=== PATIENT | male | born 1930 | race Caucasian/White ===

== ENCOUNTER → 2017-03-26 | Outpatient (CLI) | payer MEDICARE, BC ==
[~2017-03-26] MED LIST: AMLO2.5T33 PO; CALC-141 PO; D3; DONE5TAB7 PO; ESOM40CA24 PO; FINA5TAB40 PO; FISH OIL; GLUC1CAP45 PO; LEVO100T85 PO; LUTE20CA3 PO; VITAMIN E; [UNRECOGNIZED DRUG - OTHER]
[2017-03-26 08:28] LABS: ALBUMIN 3.7 G/DL (3.5-5.0); ALBUMIN/GLOBULIN RATIO 1.5 RATIO (1.1-2.2); ALKALINE PHOSPHATASE 52 U/L (38-126); ALT (SGPT) 34 U/L (21-72); AST (SGOT) 21 U/L (17-59); TOTAL PROTEIN 6.1 G/DL (6.3-8.2)
[2017-03-27 03:19] LABS: LDL CHOLESTEROL,CALCULATED 51.6 (66-159); RISK FACTOR 2.7 RATIO (0-5.0); VLDL CHOLESTEROL 14.4 MG/DL (0-28)
== END ==
LOC: LABNH.AP 01:17
PROVIDERS: ATTEND Family Medicine
DX: E78.5 Hyperlipidemia, unspecified (principal)
CPT/HCPCS: 36415; 80061; 80076; P9604

== ENCOUNTER 2017-08-10 23:33 | Inpatient (IN) ==
--- NOTE | 2017-08-10 23:56 | Emergency Department Report ---
Lower Extremity Injury HPI - General Chief Complaint: Fall Stated Complaint: Fall Time Seen by Provider: 08/10/17 23:37 Source: patient, EMS Mode of arrival: EMS Limitations: no limitations, altered mental status (memory impairment secondary to dementia) - History of Present Illness HPI Narrative: Patient had a fall at his alf room, where he lives with his . Patient fell onto his right side, and is now having pain in the proximal femur/ hip region patient has shortening with mild external rotation, and limited range of motion at the hip. While still, patient has no pain, and refused pain medication in route - Related Data Home Medications Medication Instructions Recorded Confirmed Finasteride 5 mg PO DAILY #0 01/04/12 Donepezil HCl [Aricept] 5 mg PO HS #0 tab 12/20/13 Zocor (simvastatin) 20 mg tablet 20 mg PO QAM 04/02/17 loperamide 2 mg tablet 2 mg PO DAILY PRN tab 04/02/17 oxybutynin chloride 5 mg tablet 5 mg PO TID tab 04/02/17 Levothyroxine Sodium 100 mcg PO DAILY #0 04/22/17 Norvasc (amlodipine) 5 mg tablet 5 mg PO DAILY tab 04/22/17 Probiotic Formula 1 cap PO DAILY 04/22/17 aspirin 325 mg tablet 325 mg PO DAILY tab 04/22/17 lutein 6 mg capsule 6 mg PO DAILY cap 04/22/17 Mapap Extra Strength 500 mg tablet 1,000 mg PO BID tab 08/07/17 Zoloft (sertraline) 25 mg tablet 25 mg PO HS tab 08/07/17 lisinopril 10 mg tablet 10 mg PO DAILY tab 08/07/17 Cyanocobalamin (B-12) [Vit. B-12] 1,000 mcg IM 1 MONTH 08/11/17 08/11/17 Fludrocortisone [Florinef] 0.1 mg PO DAILY 08/11/17 08/11/17 L. 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 CVA 2013. Endarterectomy 2009. Cataract extraction 2004. Biopsy 2013. Arthroscopic meniscectomy 2002. Colonoscopy 2002. Dissection 2002. TURP 1998. Hernia repair 1995. Amputation finger 1959. Appendectomy 1951 Family History: Family History (Last Reviewed 08/07/17 @ 15:25 by SHIRLENE Galvin) Mother CVA (cerebral vascular accident) Father Pulmonary embolism - Social History Smoking status: Never smoker Physical Exam - Limitations Limitations: no limitations - General General appearance: alert - Normal Exams: Head:: Normocephalic without trauma Eyes:: Pupils are PERRLA w/ EOMI, No scleral icterus, irritation, or foreign bodies noted ENMT:: No facial trauma, nasal exudates, pharyngeal erythema, or exudates are noted Neck:: Full range of motion, without adenopathy, JVD, bruits or thyromegaly Chest/Respirations:: Clear all conn, with good airflow, and symmetry bilaterally Cardiovascular:: Regular rate and rhythm, without murmur or gallop, Pulses 2+ all extremities, capillary refill, <2 seconds all extremities Abdomen:: Bowel sounds positive, soft, non-tender, non-distended, no hepatosplenomegaly, masses or bruits noted Lymphatic:: No lymphadenopathy, or lymphedema noted Integumentary:: No rashes, hives, or bruising noted, hair and nails, without abnormality Neurological:: Patient is alert, and oriented, cranial nerves, motor/sensory/ cerebellar, exams w/o gross deficits, to observation Psychiatric:: Patient exhibits, appropriate attention, emotion and affect - Extremities Exam Extremities exam: Present: tenderness, normal capillary refill, joint swelling, other (patient has significant tenderness with mild swelling at the right lateral hip and proximal femur laterally. Decreased range of motion, mild shortening and minimal external rotation.). Absent: full ROM, pedal edema, calf tenderness Course Vital Signs Temperature 97.7 F 08/10/17 23:33 Pulse Rate 56 L 08/10/17 23:33 Respiratory Rate 18 08/10/17 23:33 Blood Pressure 181/94 H 08/10/17 23:33 Pulse Oximetry 94 08/10/17 23:33 Temperature 97.7 F 08/10/17 23:33 Pulse Rate 56 L 08/10/17 23:33 Respiratory Rate 18 08/10/17 23:33 Blood Pressure 181/94 H 08/10/17 23:33 Pulse Oximetry 94 08/10/17 23:33 Extremity Injury, Lower - MDM Narrative Medical decision making narrative: Patient refuses pain medication in the ER X-rays hip/femur - comminuted intertrochanteric fracture on the right Case discussed with Dr. Alejandro Briceno, we'll admit inpatient, for consultation with orthopedist, Dr. Chávez, first thing in the morning with planned surgery tomorrow for repair of intertrochanteric hip fracture on the right Initial lab, chest x-ray, EKG done in the ER Patient is FULL CODE Disposition Clinical Impression: Intertrochanteric fracture of right hip Qualifiers: Encounter type: initial encounter Fracture type: closed Fracture alignment: nondisplaced Qualified Code(s): S72.144A - Nondisplaced intertrochanteric fracture of right femur, initial encounter for closed fracture Disposition: 02 To [facility] [place] Acute Care Condition: Stable Prescriptions: No Action Finasteride 5 mg PO DAILY #0 Donepezil HCl [Aricept] 5 mg PO HS #0 tab loperamide 2 mg tablet 2 mg PO DAILY PRN tab oxybutynin chloride 5 mg tablet 5 mg PO TID tab Levothyroxine Sodium 100 mcg PO DAILY #0 lutein 6 mg capsule 6 mg PO DAILY cap aspirin 325 mg tablet 325 mg PO DAILY tab Norvasc (amlodipine) 5 mg tablet 5 mg PO DAILY tab Zoloft (sertraline) 25 mg tablet 25 mg PO HS tab Zocor (simvastatin) 20 mg tablet 20 mg PO QAM Vitamin B12 1,000 mcg PO DAILY Probiotic Formula 1 cap PO DAILY Namenda (memantine) 10 mg tablet 10 mg PO BID #60 tab fludrocortisone 0.1 mg tablet 0.1 mg PO DAILY #30 tab lisinopril 10 mg tablet 10 mg PO DAILY tab Mapap Extra Strength 500 mg tablet 1,000 mg PO BID tab - Seen By: physician
--- OUTSIDE RECORDS SUMMARY | 2017-08-11 00:01 | External Medical Summary | Referral Summary ---
:1930 Author Organization [facility] Address [address] [place] [address] [place] Sau[place] [address] Care Team Providers Name Role Phone Ryan Ibarra Primary Care Physician Encounter VC Date(s): 04/11/15 - 04/11/15 [facility] [address] [place] [address] [place] [phone] [place] Discharge Diagnosis: Overactive bladder Discharge Disposition: 01-Home or Self Care Attending Physician: Leopoldo Murphy JR, MD Admitting Physician: Leopoldo Murphy JR, MD Referring Physician: Ryan Ibarra MD Vital Signs Most recent to oldest [Reference Range]: 1 Peripheral Pulse Rate [60-100 bpm] 70 bpm (04/11/15 9:05 AM) Blood Pressure [90-140/60-90 mmHg] 144/78 mmHg *HI* (04/11/15 9:05 AM) Problem List Condition Effective Dates Status Health Status Informant Acute cerebrovascular Active accident(Confirmed) At risk of pressure sore(Confirmed) Active Benign colon polyps(Confirmed) 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(Confirmed) Active right middle territory(Confirmed) Active Cerebral infarction(Confirmed) Active Disease of white blood Active cells(Confirmed) Diverticulosis(Confirmed) Active cardiac(Confirmed) Active Enlargement of lymph nodes(Confirmed) Active Hematuria(Confirmed) Active High cholesterol(Confirmed) Active Hyperplasia of prostate(Confirmed) Active Hypertension(Confirmed) Active Hypothyroidism(Confirmed) Active Knowledge deficit(Confirmed)1 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 1Problem added automatically by system based on initiation of Knowledge Deficit Plan of Care Allergies, Adverse Reactions, Alerts No Known Medication Allergies Medications acetaminophen 325 mg oral tablet 650 mg 2 tabs, Oral, q4hr, Other (See Comment), 0 Refill(s) Start Date: 08/17/15 Status: OrderedamLODIPine 5 mg, Oral, Daily, 0 Refill(s) Start Date: 08/17/15 Status: OrderedAricept 5 mg, Oral, Bedtime (once a day), 0 Refill(s) Start Date: 08/17/15 Status: Orderedaspirin 325 mg, 0 Refill(s) Start Date: 06/27/14 Status: OrderedCo-Q10 100 mg oral capsule 100 mg 1 caps, Oral, Daily, # 90 caps, 0 Refill(s) Start Date: 09/15/15 Status: Orderedfinasteride 5 mg, Oral, Bedtime (once a day), 0 Refill(s) Start Date: 08/17/15 Status: Orderedgarlic oral tablet 0 Refill(s) Start Date: 06/27/14 Status: Orderedlutein 6 mg oral capsule 6 mg 1 caps, Oral, Daily, # 30 caps, 0 Refill(s) Start Date: 09/15/15 Status: OrderedNexIUM 20 mg oral delayed release capsule 1 caps, Oral, Daily, # 30 caps, 0 Refill(s) Start Date: 06/27/14 Status: Orderedoxybutynin 5 mg, Oral, BID, 0 Refill(s) Start Date: 08/17/15 Status: OrderedProbiotic Formula caps, Oral, Daily, 0 Refill(s) Start Date: 06/27/14 Status: Orderedsimvastatin 20 mg oral tablet 20 mg 1 tabs, Oral, Bedtime (once a day), # 30 tabs, 0 Refill(s) Start Date: 09/15/15 Status: OrderedSynthroid 100 mcg, Oral, Daily, 0 Refill(s) Start Date: 08/17/15 Status: Ordered Results No data available for this section Immunizations Vaccine Date Refusal Reason influenza virus vaccine, inactivated 08/24/15 influenza virus vaccine, inactivated 08/14/15 influenza virus vaccine, inactivated 08/03/14 influenza virus vaccine, live 08/29/13 influenza virus vaccine, live 08/20/12 pneumococcal 13-valent conjugate vaccine 08/24/15 pneumococcal 13-valent conjugate vaccine 08/14/15 pneumococcal 23-polyvalent vaccine 09/12/03 Procedures Procedure Date Related Diagnosis Body Site Hospitalization for TIA 2014 Hospitalization for CVA - Cerebrovascular accident 2014 right carotid 2010 Cataract extraction 2005 right cervical node-benign 2004 Arthroscopic meniscectomies 2002 Colonoscopy 2002 right parotidectomy neck 2003 TURP - Transurethral resection of prostate 1998 left inguinal 1996 left index 1960 Appendectomy 195 Social History Social History Type Response Smoking Status Former smoker; Started at age: 22; Stopped at age: 24 Assessment and Plan Extracted from: Title: Ambulatory Patient Education Author: Leopoldo Murphy JR, MD Date: 04/11/15 Follow Up With: Where: When: Ryan Stacey [address] [place] [address] Drive; [place] [address] Business (1) Within 3 to 5 days Comments: Follow Up With: Where: When: Leopoldo Murphy [address]; [place] [address] Business (1) In 6 weeks 05/23/2015 Comments: Extracted from: Title: Office Visit Note Author: Leopoldo Murphy JR, MD Date: 04/11/15 Assessment/Plan Overactive bladder Takes Oxybutynin 5 mg twice a day for 2 weeks, and if there is no improvement of the problem take this medication 3 times since it to twice a day. For his BPH with lower urinary tract symptoms, continue taking the finasteride. Would like to see him again in 6 weeks. 15 minute face to face visit with 2/3 of the visit devoted to counseling. Ordered: Office Visit Level 3 Est 36857 Orders: oxybutynin, 5 mg 1 tabs, Oral, BID, # 90 tabs, 0 Refill(s), Pharmacy : [facility] #[id number], 1 tabs Oral BID
--- OUTSIDE RECORDS SUMMARY | 2017-08-11 00:01 | External Medical Summary | Referral Summary ---
:1930 Author Organization [facility] Address [address] [place] [address] Care Team Providers Name Role Phone Ryan Ibarra Primary Care Physician Encounter VC Date(s): 08/16/15 - 08/17/15 [facility] [address] [place] [address] [place] Discharge Diagnosis: Lower extremity weakness Discharge Disposition: 01-Home or Self Care Attending Physician: Sergei Price DO Admitting Physician: Tatyana Asif DO Vital Signs Most recent to oldest [Reference Range]: 1 Temperature Oral [35.8-37.3 degC] 36.5 degC (08/17/15 1:00 PM) Peripheral Pulse Rate [60-100 bpm] 52 bpm *LOW* (08/17/15 1:00 PM) Heart Rate Monitored [60-100 bpm] 53 bpm *LOW* (08/16/15 9:35 PM) Respiratory Rate [14-20 br/min] 18 br/min (08/17/15 1:00 PM) Blood Pressure [90-140/60-90 mmHg] 149/93 mmHg *HI* (08/17/15 1:00 PM) Mean Arterial Pressure, Cuff 125 mmHg (08/16/15 9:35 PM) SpO2 93 % (08/17/15 1:00 PM) Problem List Condition Effective Dates Status Health Status Informant Acute cerebrovascular Active accident(Confirmed) At risk of pressure sore(Confirmed) Active Benign colon polyps(Confirmed) 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) [...] 0 Refill(s) Start Date: 06/27/14 Status: OrderedCo-Q10 Oral, 0 Refill(s) Start Date: 06/27/14 Status: Orderedfinasteride 5 mg, Oral, Bedtime (once a day), 0 Refill(s) Start Date: 08/17/15 Status: Orderedgarlic oral tablet 0 Refill(s) Start Date: 06/27/14 Status: Orderedlutein Oral, Daily, 0 Refill(s) Start Date: 06/27/14 Status: OrderedNexIUM 20 mg oral delayed release [...] # 30 tabs, 0 Refill(s) Start Date: 08/17/15 Status: OrderedSynthroid 100 mcg, Oral, Daily, 0 Refill(s) Start Date: 08/17/15 Status: Ordered Results Hematology Most recent to oldest [Reference Range]: 1 WBC [4.8-10.8 10*3/uL] 6.2 10*3/uL (08/16/15 8:00 PM) RBC [4.60-6.20] 4.49 *LOW* (08/16/15 8:00 PM) Hgb [14.0-18.0 gm/dL] 14.5 gm/dL (08/16/15 8:00 PM) Hct [42.0-52.0 %] 42.4 % (08/16/15 8:00 PM) MCV [82.0-99.0 fL] 94.4 fL (08/16/15 8:00 PM) MCH [27.0-32.0 pg] 32.3 pg *HI* (08/16/15 8:00 PM) MCHC [32.0-36.0 gm/dL] 34.2 gm/dL (08/16/15 8:00 PM) RDW [11.5-14.5 %] 12.7 % (08/16/15 8:00 PM) Platelet [150-400 10*3/uL] 185 10*3/uL (08/16/15 8:00 PM) MPV [9.4-12.3 fL] 10.2 fL (08/16/15 8:00 PM) Immature Granulocytes [0.0-1.0 %] 0.2 % (08/16/15 8:00 PM) Neutrophils [51-75 %] 52 % (08/16/15 8:00 PM) Lymphocytes [20-46 %] 31 % (08/16/15 8:00 PM) Monocytes [4-11 %] 13 % *HI* (08/16/15 8:00 PM) Eosinophils [0-4 %] 4 % (08/16/15 8:00 PM) Basophils [0-2 %] 0 % (08/16/15 8:00 PM) Neutro Absolute [1.90-7.00 10*3] 3.23 10*3 (08/16/15 8:00 PM) Lymph Absolute [0.80-3.30 10*3] 1.91 10*3 (08/16/15 8:00 PM) [place] Absolute [0.30-1.00 10*3] 0.81 10*3 (08/16/15 8:00 PM) Eos Absolute [0.00-0.50 10*3] 0.22 10*3 (08/16/15 8:00 PM) Baso Absolute [0.00-0.20 10*3] 0.02 10*3 (08/16/15 8:00 PM) Nucleated RBC Automated [0 /100 WBC] 0.0 /100 WBC (08/16/15 8:00 PM) Coagulation Most recent to oldest [Reference Range]: 1 INR [0.9-1.2] 1.1 (08/16/15 8:00 PM) PTT [25.0-35.0 seconds] 31.3 seconds (08/16/15 8:00 PM) Chemistry Most recent to oldest [Reference Range]: 1 Sodium Lvl [136-144 mEq/L] 138 mEq/L (08/16/15 8:00 PM) Potassium Lvl [3.6-5.1 mEq/L] 3.8 mEq/L (08/16/15 8:00 PM) Chloride [99-109 mEq/L] 109 mEq/L (08/16/15 8:00 PM) CO2 [22-32 mEq/L] 24 mEq/L (08/16/15 8:00 PM) AGAP [3-20] 5 (08/16/15 8:00 PM) BUN [4-20 mg/dL] 22 mg/dL *HI* (08/16/15 8:00 PM) Glucose Lvl [70-100 mg/dL] 117 mg/dL *HI* (08/16/15 8:00 PM) Creatinine Lvl [0.64-1.27 mg/dL] 0.93 mg/dL (08/16/15 8:00 PM) eGFR [>60] >60 1 (08/16/15 8:00 PM) Calcium Lvl [8.6-10.0 mg/dL] 9.0 mg/dL (08/16/15 8:00 PM) Troponin [<0.06 ng/mL] <0.05 ng/mL (08/16/15 8:00 PM) Sodium Venous [136-144 mEq/L] 141 mEq/L (08/16/15 8:01 PM) Potassium Venous [3.6-5.1 mEq/L] 3.9 mEq/L 2 (08/16/15 8:01 PM) Calcium Ionized Venous [1.19-1.41 mmol/L] 1.19 mmol/L (08/16/15 8:01 PM) Total CO2 Venous [25-29 mEq/L] 24 mEq/L *LOW* (08/16/15 8: PM) HGB Venous NPT [14.0-16.0 gm/dL] 14.6 gm/dL (08/16/15 8: PM) HCT Venous [42.0-52.0 %] 43.0 % (08/16/15 8:01 PM) Glucose Venous [70-100 mg/dL] 116 mg/dL *HI* (08/16/15 8: PM) BUN Venous [4-20] 26 *HI* (08/16/15: PM) Creatinine Venous [0.7-1.2 mg/dL] 1.0 mg/dL (08/16/15 8: PM) Venous CL [99-109 mEq/L] 107 mEq/L (08/16/15: PM) Anion Gap, Ata [3-20] 10 (08/16/15 8:01 PM) Chol [0-200 mg/dL] 178 mg/dL (08/17/15 6:41 AM) Trig [0-150 mg/dL] 78 mg/dL (08/17/15 6:41 AM) HDL [>40 mg/dL] 38 mg/dL *ABN* (08/17/15 6:41 AM) LDL [0-100 mg/dL] 124 mg/dL *HI* (08/17/15 6:41 AM) VLDL Cholesterol [0-30 mg/dL] 16 mg/dL (08/17/15 6:41 AM) Cardiac Risk [0.0-5.7] 4.7 (08/17/15 6:41 AM) TSH with Reflex Free T4 [0.35-5.50] 5.12 (08/17/15 6:41 AM) 1Result Comment: Multiply eGFR results by 1.21 for race.2Result Comment: This test was performed on a whole blood specimen. The presence or absence of hemolysis cannot be assessed. Hemolysis can falsely elevate potassium levels. Normals are for venous specimens only.Urinalysis Most recent to oldest [Reference Range]: 1 UA Color Yellow (08/17/15 5:15 AM) UA Appear Clear (08/17/15 5:15 AM) UA pH [5.0-8.0] 6.5 (08/17/15 5:15 AM) UA Leuk Est [Negative] Negative (08/17/15 5:15 AM) UA Nitrite [Negative] Negative (08/17/15 5:15 AM) UA Protein [Negative] Negative (08/17/15 5:15 AM) UA Glucose [Negative] Negative (08/17/15 5:15 AM) UA Ketones [Negative] Negative (08/17/15 5:15 AM) UA Urobilinogen [<1.0 mg/dL] 1.0 mg/dL (08/17/15 5:15 AM) UA Bili [Negative] Negative (08/17/15 5:15 AM) UA Blood [Negative] Negative (08/17/15 5:15 AM) UA Spec Grav [1.003-1.030] 1.028 (08/17/15 5:15 AM) Type Clean Catch (08/17/15 5:15 AM) Immunizations Vaccine Date Refusal Reason influenza virus vaccine, inactivated 08/14/15 influenza virus vaccine, inactivated 08/03/14 influenza virus vaccine, live 08/29/13 influenza virus vaccine, live 08/20/12 pneumococcal 13-valent conjugate vaccine 08/14/15 pneumococcal 23-polyvalent vaccine 09/12/03 Procedures Procedure Date Related Diagnosis Body Site Hospitalization for CVA - Cerebrovascular accident 2013 right carotid 2010 Cataract extraction 2004 right cervical node-benign 2004 Arthroscopic meniscectomies 2002 Colonoscopy 2002 right parotidectomy neck 2003 TURP - Transurethral resection of prostate 1998 left inguinal 1996 left index 1960 Appendectomy 195 Social History Social History Type Response Smoking Status Former smoker; Started at age: 22; Stopped at age: 24 Assessment and Plan No data available for this section
--- OUTSIDE RECORDS SUMMARY | 2017-08-11 00:01 | External Medical Summary | Referral Summary ---
:1930 Author Organization [facility] Address [address] [place] [address] [place] [address] Care Team Providers Name Role Phone Ryan Ibarra Primary Care Physician Encounter VC Date(s): 04/11/15 - 04/11/15 [facility] [address] [place] [address] [place] [phone] [place] Discharge Diagnosis: Overactive [...] left inguinal 1996 left index 1960 Appendectomy 1952 Social History Social History Type Response Smoking Status Former smoker; Started at age: 22; Stopped at age: 24 Assessment and Plan Extracted from: Title: Ambulatory Patient Education Author: Leopoldo Murphy JR, MD Date: 04/11/15 Follow Up With: Where: When: Ryan Peters[address]; [place] [address] Business (1) Within 3 to 5 days Comments: Follow Up With: [facility]: [facility] [address]; [place] [address] [employer] (1) In 6 weeks 05/23/2015 Comments: Extracted [...] counseling. Ordered: Office Visit Level 3 Est 12008 Orders: oxybutynin, 5 mg 1 tabs, Oral, BID, # 90 tabs, 0 Refill(s), Pharmacy : [facility] #[id number], 1 tabs Oral BID
--- OUTSIDE RECORDS SUMMARY | 2017-08-11 00:01 | External Medical Summary | Referral Summary ---
:1930 Author Organization [facility] Address [address] [place] [address] PAULINO Saucedo [address] Care Team Providers Name Role Phone Arlen Jennings Primary Care Physician Encounter VC Date(s): 09/06/15 - 09/06/15 [facility] [address] [place] [address] [place] Sau[place] [address] [place] Discharge Diagnosis: Diarrhea Discharge Diagnosis: Alzheimer's dementia Discharge Disposition: 01-Home or Self Care Attending Physician: Ryan Ibarra MD Admitting Physician: Ryan Ibarra MD Vital Signs Most recent to oldest [Reference Range]: 1 Temperature Tympanic [36.6-38.1 degC] 36.3 degC *LOW* (09/06/15 4:14 PM) Respiratory Rate [14-20 br/min] 20 br/min (09/06/15 4:14 PM) Blood Pressure [90-140/60-90 mmHg] 124/86 mmHg (09/06/15 4:14 PM) SpO2 95 % (09/06/15 4:14 PM) Problem List Condition Effective Dates Status [...] 2005 right cervical node-benign 2004 Arthroscopic meniscectomies 2003 Colonoscopy 2003 right parotidectomy neck 2003 TURP - Transurethral resection of prostate 1998 left inguinal 1996 left index 1960 Appendectomy 1951 Social History Social History Type Response Smoking Status Former smoker; Started at age: 22; Stopped at age: 24 Assessment and Plan Extracted from: Title: Ambulatory Patient Education Author: Ryan Ibarra MD Date: Family Medicine Diarrhea Diarrhea is watery poop (stool). It can make you feel weak, tired, thirsty, or give you a dry mouth (signs of dehydration). Watery poop is a sign of another problem, most often an infection. It often la sts 23 days. It can last longer if it is a sign of something serious. Take care of yourself as told by your doctor. HOME CARE Drink 1 cup (8 ounces) of fluid each time you have watery poop. Do not drink the following fluids: Those that contain simple sugars (fructose, glucose, galactose, lactose, sucrose, maltose). Sports drinks. Fruit juices. Whole milk products. Sodas. Drinks with caffeine (coffee, tea, soda) or alcohol. Oral rehydration solution may be used if the doctor says it is okay. You may make your own solution. Follow this recipe: teaspoon table salt. teaspoon baking soda. teaspoon salt substitute containing potassium chloride. 1 tablespoons sugar. 1 liter (34 ounces) of water. Avoid the following foods: High fiber foods, such as raw fruits and vegetables. Nuts, seeds, and whole grain breads and cereals. Those that are sweetened with sugar alcohols (xylitol, sorbitol, mannitol) . Try eating the following foods: Starchy foods, such as rice, toast, pasta, low-sugar cereal, oatmeal, baked potatoes, crackers, and bagels. Bananas. Applesauce. Eat probiotic-rich foods, such as yogurt and milk products that are fermented. Wash your hands well after each time you have watery poop. Only take medicine as told by your doctor. Take a warm bath to help lessen burning or pain from having watery poop. GET HELP RIGHT AWAY IF: You cannot drink fluids without throwing up (vomiting). You keep throwing up. You have blood in your poop, or your poop looks black and tarry. You do not pee (urinate) in 68 hours, or there is only a small amount of very dark pee. You have belly (abdominal) pain that gets worse or stays in the same spot (localizes). You are weak, dizzy, confused, or light-headed. You have a very bad headache. Your watery poop gets worse or does not get better. You have a fever or lasting symptoms for more than 23 days. You have a fever and your symptoms suddenly get worse. MAKE SURE YOU: Understand these instructions. Will watch your condition. Will get help right away if you are not doing well or get worse. Document Released: 04/14/2009 Document Revised: 03/13/2015 Document Reviewed: 07/04/2013 ExitCare Patient Information 2015 [employer]. This information is not intended to replace advice given to you by your health care provider. Make sure you discuss any questions you have with your health care provider. Follow Up With: Where: When: Ryan Ibarra [address] [place] [address] Drive; [place] [facility] [place] [address] [employer] (1) Within 3 to 5 days, only if needed Comments: Extracted from: Title: Office Visit Note Author: Ryan Ibarra MD Date: 09/06/15 Assessment/Plan Alzheimer's dementia He will continue his present medication. Diarrhea He will restart his probiotic. There are advised that if he has any significant episodes of persistent diarrhea that he should be considered for endoscopic evaluation and biopsies of the rectal mucosa.
--- OUTSIDE RECORDS SUMMARY | 2017-08-11 00:02 | External Medical Summary | Referral Summary ---
:1930 Author Organization [facility] Address [address] [place] [address] [place] Saucedo [address] Care Team Providers Name Role Phone Arlen Jennings Primary Care Physician Encounter VC KG [id number] Date(s): 07/12/15 - 07/12/15 [facility] [address] [place] [address] [place] [address] [place] Discharge Diagnosis: OTHER B-COMPLEX DEFICIENCIES Discharge Disposition: 01-Home or Self Care Attending Physician: Ryan Ibarra MD Admitting Physician: Ryan Ibarra MD Vital Signs No data available for this section Problem List Condition Effective Dates Status Health [...] accident 2014 right carotid 2010 Cataract extraction 2004 right cervical node-benign 2004 Arthroscopic meniscectomies 2002 Colonoscopy 2002 right parotidectomy neck 2002 TURP - Transurethral resection of prostate 1998 left inguinal 1995 left index 1960 Appendectomy 195 Social History Social History Type Response Smoking Status Former smoker; Started at age: 22; Stopped at age: 24 Assessment and Plan No data available for this section
--- OUTSIDE RECORDS SUMMARY | 2017-08-11 00:02 | External Medical Summary | Referral Summary ---
:1930 Author Organization [facility] Address [address] [place] [address] [place] Saucedo [address] Care Team Providers Name Role Phone Ryan Ibarra Primary Care Physician Encounter VC Date(s): 04/11/15 - 04/11/15 [facility] [address] [place] [address] [place] Sau[place] [address] [place] Discharge Diagnosis: Overactive [...] 04/11/15 Follow Up With: Where: When: Ryan Peters[address]; [place] [address] Business (1) Within 3 to 5 days Comments: Follow Up With: [facility]: [facility] [address]; [place] [address] [employer] (1) In 6 weeks 05/23/2015 Comments: Extracted [...] counseling. Ordered: Office Visit Level 3 Est [id number] Orders: oxybutynin, 5 mg 1 tabs, Oral, BID, # 90 tabs, 0 Refill(s), Pharmacy : [facility] #[id number], 1 tabs Oral BID
--- OUTSIDE RECORDS SUMMARY | 2017-08-11 00:02 | External Medical Summary | Referral Summary ---
:1930 Author Organization Via [facility] Address [address] [place] [address] Care Team Providers Name Role Phone Arlen Jennings Primary Care Physician Encounter VC Date(s): 08/16/15 - 08/17/15 [facility] [address] [place] [address] Final: Cerebral infarction, unspecified Final: Dysarthria and anarthria Final: Other dysphagia Final: Other symptoms and signs involving the musculoskeletal system Final: Essential (primary) hypertension Final: Unspecified dementia without behavioral disturbance Final: Enlarged prostate without lower urinary tract symptoms Final: Deficiency of other specified B group vitamins Final: Hypothyroidism, unspecified Discharge Diagnosis: Lower extremity weakness Discharge Disposition: [...] 8:00 PM) MCV [82.0-99.0 fL] 94.4 fL (08/16/15:00 PM) MCH [27.0-32.0 pg] 32.3 pg *HI* [...] [0.80-3.30 10*3] 1.91 10*3 (08/16/15 8:00 PM) Clay Absolute [0.30-1.00 10*3] 0.81 10*3 (08/16/15 8:00 [...] Sodium Venous [136-144 mEq/L] 141 mEq/L (08/16/15 8: PM) Potassium Venous [3.6-5.1 mEq/L] 3.9 mEq/L 2 (08/16/15: PM) Calcium Ionized Venous [1.19-1.41 mmol/L] 1.19 mmol/L (08/16/15 8: PM) Total CO2 Venous [25-29 mEq/L] 24 mEq/L *LOW* (08/16/15 PM) HGB Venous NPT [14.0-16.0 gm/dL] 14.6 gm/dL (08/16/15 8:01 PM) HCT Venous [42.0-52.0 %] 43.0 % (08/16/15: PM) Glucose Venous [70-100 mg/dL] 116 mg/dL *HI* (08/16/15 8:01 PM) BUN Venous [4-20] 26 *HI* (08/16/15 8: PM) Creatinine Venous [0.7-1.2 mg/dL] 1.0 mg/dL (08/16/15 8: PM) Venous CL [99-109 mEq/L] 107 mEq/L (08/16/15 8: PM) Anion Gap, Ata [3-20] 10 (08/16/15 8: PM) Chol [0-200 mg/dL] 178 mg/dL (08/17/15 [...] 2014 Hospitalization for CVA - Cerebrovascular accident 2013 right carotid 2010 Cataract extraction 2004 right cervical node-benign 2004 Arthroscopic meniscectomies 2003 Colonoscopy 2002 right parotidectomy neck 2003 TURP - Transurethral resection of prostate 1998 left inguinal 1995 left index 1960 Appendectomy 1951 Social History Social History Type Response Smoking Status Former smoker; Started at age: 22; Stopped at age: 24 Assessment and Plan No data available for this section
--- OUTSIDE RECORDS SUMMARY | 2017-08-11 00:02 | External Medical Summary | Referral Summary ---
:1930 Author Organization [facility] Address [address] [place] [address] [place] Saucedo [address] Care Team Providers Name Role Phone Ryan Ibarra Primary Care Physician Encounter VC Date(s): 04/11/15 - 04/11/15 [facility] [address] [place] [address] [place] [address] [place] Discharge Diagnosis: Overactive [...] Follow Up With: Where: When: Ryan Stacey [address] [place] [address] Drive; [place] [address] Business (1) Within 3 to 5 days Comments: Follow Up With: Where: When: Leopoldo Murphy [address]; [place] [address] Business (1) In 6 weeks [...] counseling. Ordered: Office Visit Level 3 Est [id number] Orders: oxybutynin, 5 mg 1 tabs, Oral, BID, # 90 tabs, 0 Refill(s), Pharmacy : [facility] #[id number], 1 tabs Oral BID
--- OUTSIDE RECORDS SUMMARY | 2017-08-11 00:02 | External Medical Summary | Referral Summary ---
:1930 Author Organization [facility] Address [address] [place] [address] PA[place] Saucedo [address] Care Team Providers Name Role Phone Ryan Ibarra Primary Care Physician Encounter VC Date(s): 04/11/15 - 04/11/15 [facility] [address] [place] [address] [place] Sau[place] [address] [place] Discharge Diagnosis: Overactive [...] 04/11/15 Follow Up With: Where: When: Ryan Ibarra [address] [place] [address] Drive; [place] [address] Business (1) Within 3 to 5 days Comments: Follow Up With: Where: When: Leopoldo Vargas [address]; [place] [address] Business (1) In 6 weeks [...] counseling. Ordered: Office Visit Level 3 Est [id number] Orders: oxybutynin, 5 mg 1 tabs, Oral, BID, # 90 tabs, 0 Refill(s), Pharmacy : [facility] #[id number], 1 tabs Oral BID
--- OUTSIDE RECORDS SUMMARY | 2017-08-11 00:02 | External Medical Summary | Referral Summary ---
:1930 Author Organization [facility] Address [address] [place] [address] [place] Saucedo [address] Care Team Providers Name Role Phone Ryan Ibarra Primary Care Physician Encounter VC Date(s): 08/11/15 - 08/11/15 [facility] [address] [place] [address] [place] [address] [place] Discharge Disposition: 01-Home or Self Care Attending Physician: Ryan Ibarra MD Admitting Physician: Ryan Ibarra MD Vital Signs No data available for this section Problem List Condition Effective Dates Status Health Status Informant Acute cerebrovascular Active accident(Confirmed) Benign colon polyps(Confirmed) 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) Diverticulosis(Confirmed) Active cardiac(Confirmed) Active Enlargement of lymph nodes(Confirmed) Active Hematuria(Confirmed) Active High cholesterol(Confirmed) Active Hyperplasia of prostate(Confirmed) Active Hypertension(Confirmed) Active Hypothyroidism(Confirmed) 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 Allergies, Adverse Reactions, Alerts No Known Medication Allergies Medications amLODIPine 5 mg oral tablet See Instructions, TAKE ONE TABLET BY MOUTH ONCE A DAY, # 90 tabs, eRx: [facility] #[id number], TAKE ONE TABLET BY MOUTH ONCE A DAY Start Date: 06/09/15 Status: OrderedAricept 5 mg oral tablet See Instructions, TAKE ONE TABLET BY MOUTH AT BEDTIME, # 30 tabs, 2 Refill(s), eRx: [facility]#[id number], TAKE ONE TABLET BY MOUTH AT BEDTIME Start Date: 06/19/15 Status: Orderedaspirin 325 mg, 0 Refill(s) Start Date: 06/27/14 Status: OrderedCo-Q10 Oral, 0 Refill(s) Start Date: 06/27/14 Status: Orderedfinasteride 5 mg oral tablet See Instructions, TAKE ONE TABLET BY MOUTH EVERY NIGHT AT BEDTIME, # 90 tabs, 2 Refill(s), eRx: [facility] #[id number], TAKE ONE TABLET BY MOUTH EVERY NIGHT AT BEDTIME Start Date: 09/19/14 Status: Orderedgarlic oral tablet 0 Refill(s) Start Date: 06/27/14 Status: Orderedlutein Oral, Daily, 0 Refill(s) Start Date: 06/27/14 Status: OrderedNexIUM 20 mg oral delayed release capsule 1 caps, Oral, Daily, # 30 caps, 0 Refill(s) Start Date: 06/27/14 Status: Orderedoxybutynin 5 mg oral tablet 5 mg 1 tabs, Oral, BID, # 90 tabs, 0 Refill(s), Pharmacy: [facility] # [id number], 1 tabs Oral BID Start Date: 04/10/15 Status: OrderedProbiotic Formula caps, Oral, Daily, 0 Refill(s) Start Date: 06/27/14 Status: OrderedSynthroid 100 mcg (0.1 mg) oral tablet See Instructions, TAKE ONE TABLET BY MOUTH ONCE A DAY, # 30 tabs, 2 Refill(s), eRx: [facility]#[id number], TAKE ONE TABLET BY MOUTH ONCE A DAY Start Date: 03/13/15 Status: OrderedSynthroid 100 mcg (0.1 mg) oral tablet See Instructions, TAKE ONE TABLET BY MOUTH ONCE A DAY, # 30 tabs, 1 Refill(s), eRx: [facility]#[id number], TAKE ONE TABLET BY MOUTH ONCE A DAY Start Date: 06/29/15 Status: Ordered Results No data available for this section Immunizations Vaccine Date Refusal Reason influenza virus vaccine, inactivated 08/03/14 influenza virus vaccine, live 08/29/13 influenza virus vaccine, live 08/20/12 pneumococcal 23-polyvalent vaccine 09/12/03 Procedures Procedure Date Related Diagnosis Body Site Hospitalization for CVA - Cerebrovascular accident 2014 right carotid 2010 Cataract extraction 2004 right cervical node-benign 2004 Arthroscopic meniscectomies 2003 Colonoscopy 2002 right parotidectomy neck 2002 TURP - Transurethral resection of prostate 1998 left inguinal 1995 left index 1960 Appendectomy 1951 Social History Social History Type Response Smoking Status Former smoker; Started at age: 22; Stopped at age: 24 Assessment and Plan No data available for this section
--- OUTSIDE RECORDS SUMMARY | 2017-08-11 00:02 | External Medical Summary | Referral Summary ---
:1930 Author Organization [facility] Address [address] [place] [address] [place] Sau[place] [address] Care Team Providers Name Role Phone Ryan Ibarra Primary Care Physician Encounter VC Date(s): 09/06/15 - 09/06/15 [facility] [address] [place] [address] [place] [address] [place] Discharge Diagnosis: Diarrhea [...] 04/14/2009 Document Revised: 03/13/2015 Document Reviewed: 07/04/2013 [facility] Patient Information 2015 [facility]. This information is not intended to replace advice given to you by your health care provider. Make sure you discuss any questions you have with your health care provider. Follow Up With: Where: When: Ryan Ibarra [address] [place] [address] Drive; [place] [address] Business (1) Within 3 to 5 days, only [...]
--- OUTSIDE RECORDS SUMMARY | 2017-08-11 00:02 | External Medical Summary | Referral Summary ---
:1930 Author Organization [facility] Address [address] [place] [address] [place] Saucedo [address] Care Team Providers Name Role Phone Ryan Ibarra Primary Care Physician Encounter VC Date(s): 08/21/15 - 08/21/15 [facility] [address] [place] [address] [place] [address] [place] Discharge Diagnosis: Essential hypertension Discharge Diagnosis: Hx of transient ischemic attack (TIA) Discharge Diagnosis: Hypothyroidism Discharge Disposition: 01-Home or Self Care Attending Physician: Ryan Ibarra MD Admitting Physician: Ryan Ibarra MD Vital Signs Most recent to oldest [Reference Range]: 1 Temperature Tympanic [36.6-38.1 degC] 36.5 degC *LOW* (08/21/15 4:10 PM) Peripheral Pulse Rate [60-100 bpm] 70 bpm (08/21/15 4:10 PM) Respiratory Rate [14-20 br/min] 18 br/min (08/21/15 4:10 PM) Blood Pressure [90-140/60-90 mmHg] 132/90 mmHg (08/21/15 4:10 PM) SpO2 92 % (08/21/15 4:10 PM) Problem List Condition Effective Dates Status [...] Patient Education Author: Ryan Ibarra MD Date: Follow Up With: Where: When: Ryan Ibarra [address] [place] [address] Drive; [place] [address] Business (6) In 4 months 12/22/2015 Comments: Extracted from: Title: Office Visit Note Author: Ryan Ibarra MD Date: 08/21/15 Assessment/Plan Essential hypertension He will continue his same medication. Hx of transient ischemic attack (TIA) He will continue aspirin. Hypothyroidism He will continue his same medication.
--- OUTSIDE RECORDS SUMMARY | 2017-08-11 00:02 | External Medical Summary | Referral Summary ---
:1930 Author Organization [facility] Address [address] [place] [address] PA[place] Saucedo [address] Care Team Providers Name Role Phone Ryan Ibarra Primary Care Physician Encounter VC Date(s): 04/11/15 - 04/11/15 [facility] [address] [place] [address] [place] [address] [place] Discharge Diagnosis: Overactive [...] 04/11/15 Follow Up With: Where: When: Ryan Peters[address]; [place] [address] Business (1) Within 3 to 5 days Comments: Follow Up With: Where: [facility] [address]; [place] [address] [employer] (1) In 6 weeks 05/23/2015 Comments: Extracted [...] counseling. Ordered: Office Visit Level 3 Est [id number] Orders: oxybutynin, 5 mg 1 tabs, Oral, BID, # 90 tabs, 0 Refill(s), Pharmacy : [facility] #[id number], 1 tabs Oral BID
--- OUTSIDE RECORDS SUMMARY | 2017-08-11 00:02 | External Medical Summary | Referral Summary ---
:1930 Author Organization [facility] Address [address] [place] [address] [place] Saucedo [address] Care Team Providers Name Role Phone Arlen Jennings Primary Care Physician Encounter VC Date(s): 06/13/15 - 06/13/15 [facility] [address] [place] [address] [place] [address] [place] Discharge Diagnosis: Vitamin B-12 defiency Discharge Disposition: 01-Home or Self Care Attending [...]
--- OUTSIDE RECORDS SUMMARY | 2017-08-11 00:02 | External Medical Summary | Referral Summary ---
:1930 Author Organization [facility] Address [address] [place] [address] [place] Saucedo [address] Care Team Providers Name Role Phone Ryan Ibarra Primary Care Physician Encounter VC Date(s): 04/11/15 - 04/11/15 [facility] [address] [place] [address] [place] [address] [place] Discharge Diagnosis: Vitamin B-12 defiency Discharge Diagnosis: Action tremor Discharge Diagnosis: History of CVA (cerebrovascular accident) Discharge Diagnosis: Chronic lumbar radiculopathy Discharge Disposition: 01-Home or Self Care Attending Physician: Ryan Ibarra MD Admitting Physician: Ryan Ibarra MD Vital Signs Most recent to oldest [Reference Range]: 1 Temperature Tympanic [36.6-38.1 degC] 36.0 degC *LOW* (04/11/15 11:23 AM) Respiratory Rate [14-20 br/min] 16 br/min (04/11/15 11:23 AM) Blood Pressure [90-140/60-90 mmHg] 132/78 mmHg (04/11/15 11:23 AM) Problem List Condition Effective Dates Status [...] vaccine, inactivated 08/03/14 influenza virus vaccine, live 10/20/13 influenza virus vaccine, live 08/20/12 pneumococcal 13-valent [...] Patient Education Author: Ryan Ibarra MD Date: 04/11/15 Family Medicine Tremor Tremor is a rhythmic, involuntary muscular contraction characterized by oscillations (to-and-fro movements) of a part of the body. The most common of all involuntary movements, tremor can affect various body parts such as the hands, head, facial structures, vocal cords, trunk, and legs; most tremors, however, occur in the hands. Tremor often accompanies neurological disorders associated with aging. Al though the disorder is not life-threatening, it can be responsible for functional disability and social embarrassment. TREATMENT There are many types of tremor and several ways in which tremor is classified. The most common classification is by behavioral context or position. There are five categories of tremor within this classi fication: resting, postural, kinetic, task-specific, and psychogenic. Resting or static tremor occurs when the muscle is at rest, for example when the hands are lying on the lap. This type of tremor i s often seen in patients with Parkinson's disease. Postural tremor occurs when a patient attempts to maintain posture, such as holding the hands outstretched. Postural tremors include physiological demetria mor, essential tremor, tremor with basal ganglia disease (also seen in patients with Parkinson's disease), cerebellar postural tremor, tremor with peripheral neuropathy, post-traumatic tremor, and alcoh olic tremor. Kinetic or intention (action) tremor occurs during purposeful movement, for example during [id number] testing. Task-specific tremor appears when performing goal-oriented tasks such as handwriting, speaking, or standing. This group consists of primary writing tremor, vocal tremor, and orthostatic tremor. Psychogenic tremor occurs in both older and younger patients. The nelson feature o f this tremor is that it dramatically lessens or disappears when the patient is distracted. PROGNOSIS There are some treatment options available for tremor; the appropriate treatment depends on accurate diagnosis of the cause. Some tremors respond to treatment of the underlying condition, for example in some cases of psychogenic tremor treating the patient's underlying mental problem may cause the tremor to disappear. Also, patients with tremor due to Parkinson's disease may be treated with Levodopa d rug therapy. Symptomatic drug therapy is available for several other tremors as well. For those cases of tremor in which there is no effective drug treatment , physical measures such as teaching the joe ent to brace the affected limb during the tremor are sometimes useful. Surgical intervention such as thalamotomy or deep brain stimulation may be useful in certain cases. Document Released: 10/17/2003 Document Revised: 01/18/2013 Document Reviewed: 10/27/2006 ExitCare Patient Information 2014 [employer]. Follow Up With: Where: When: Ryan Ibarra [address] [place] [address] Drive; [address] [place], [place] [id number] [employer] In 4 months 08/11/2015 Comments: Extracted from: Title: Office Visit Note Author: Ryan Ibarra MD Date: 04/11/15 Assessment/Plan Action tremor Neurology consultation will be scheduled with Dr. Melvin. Chronic lumbar radiculopathy His condition in this regard is unchanged. History of CVA (cerebrovascular accident) His condition is stable in this regard. Vitamin B-12 defiency He continues on B-12 injections. Ordered: cyanocobalamin, 1,000 mcg, IntraMuscular, qMonth, First Dose: 04/11/15 12:00: 00 CDT
--- OUTSIDE RECORDS SUMMARY | 2017-08-11 00:03 | External Medical Summary | Continuity of Care Document ---
:1930 Author Organization Via [facility] Allergies Active Description Code Type Severity Reaction Onset Reported/ Identified Relationship Clinical to Patient Status Yes No Known NKMA N/A N/A 08/31/2014 Medication Allergies Yes No Known NKMA N/A N/A 08/31/2014 Medication Allergies Medications Problems Date Dx Attending Type Code Diagnosis Diagnosed By Coded 08/16/2015 Dee DO, Admitting I10 Gates D 08/21/2015 Dee DO, Final E03.9 Hypothyroidism, Sergei D unspecified 08/21/2015 Ede DO, Final E53.8 Deficiency of other Gates D specified B group vitamins 08/21/2015 Dee DO, Final F03.90 Unspecified dementia Sergei D without behavioral disturbance 08/21/2015 Dee DO, Final I10 Essential (primary) Gates D hypertension 08/21/2015 Dee DO, Final I63.9 Cerebral infarction, Sergei D unspecified 08/21/2015 Dee DO, Final N40.0 Enlarged prostate Gates D without lower urinary tract symptoms 08/21/2015 Dee DO, Final R13.19 Other dysphagia Sergei D 08/21/2015 Dee DO, Reason R29.810 Facial weakness Gates D 08/21/2015 Dee DO, Final R29.898 Other symptoms and Sergei D signs involving the musculoskeletal system 08/21/2015 Dee DO, Final R47.1 Dysarthria and Gates D anarthria Procedures Results Encounters ACCT No. Visit Discharge Status Pt. Type Provider Facility Loc./Unit Complaint Date/Time [id number] 02/03/2014 02/03/2014 CLS Outpatie 11:15:00 23:59:59 nt [id number] 01/19/2014 01/19/2014 CLS Outpatie 15:11:00 23:59:59 nt [id number] 08/16/2015 08/17/2015 DIS Outpatie Dee Via [facility] F5SW stroke, 489 19:56:00 13:49:00 nt DO, Vang[facility] [place] [id number] 09/06/2015 09/06/2015 DIS Outpatie Ibarra, [facility] DIARRHEA 506 16:01:00 23:59:00 nt Ryan E [facility] [id number] 08/21/2015 08/21/2015 DIS Outpatie Ibarra, [facility] H[facility] FU 051 15:44:00 23:59:00 nt Ryan [facility] TIAS Clinic [id number] 08/11/2015 08/11/2015 CLS Outpatie Ibarra, [facility] B12 INJ 171 09:46:00 23:59:59 nt Ryan [facility] [id number] 07/12/2015 07/12/2015 DIS Outpatie Ibarra, [facility] B12 INJ 145 09:35:00 23:59:00 nt Ryan E [facility] [id number] 06/13/2015 06/13/2015 DIS Outpatie Ibarra, [facility] B12 INJ 195 09:45:00 23:59:00 nt Ryan [facility] [id number] 05/11/2015 05/11/2015 DIS Outpatie Ibarra, [facility] B12 INJ 048 09:41:00 23:59:00 nt Ryan E [facility] [id number] 01/27/2015 01/27/2015 DIS Outpatie Ibarra, [facility] Urine 846 11:18:00 23:59:00 nt Ryan E [facility] urgency Clinic b12 inj [id number] 12/02/2014 12/02/2014 DIS Outpatie Josette Via [facility] New Surg DIARRHEA 810 10:29:00 23:59:00 Juan Carlos batres PER Clinic IBARRA [id number] 11/25/2014 11/25/2014 DIS Outpatie Ibarra, [facility] Diarrhea 425 09:08:00 23:59:00 nt Ryan E [facility] [id number] 11/14/2014 11/14/2014 DIS Outpatie Ibarra, [facility] B12 840 14:48:00 23:59:00 nt Ryan E [facility] [id number] 10/03/2014 10/03/2014 [facility] 541 09:38:00 23:59:00 nt Ryan E [facility] [id number] 10/03/2014 10/03/2014 DIS Outpatie Ibarra, Via [facility] B12 shot 203 09:19:00 23:59:00 nt Ryan E [facility] [id number] 04/11/2015 Document 814 11:07:00 Registra tion [id number] 04/11/2015 Document 860 08:56:00 Registra tion [id number] 02/06/2015 Document 931 15:27:00 Registra tion
--- OUTSIDE RECORDS SUMMARY | 2017-08-11 00:03 | External Medical Summary | Referral Summary ---
:1930 Author Organization Via [facility] Address [address] [place] [address] PAULINO Saucedo [address] Care Team Providers Name Role Phone Ryan Ibarra Primary Care Physician Encounter VC Date(s): 04/11/15 - 04/11/15 [facility] [address] [place] [address] [place] Sau[place] [address] [place] Discharge Diagnosis: Overactive [...] Follow Up With: Where: When: Ryan Ibarra [address] [place] [address] Drive; [place] [address] Business (1) Within 3 to 5 days Comments: Follow Up With: Where: When: Leopoldo Vargas [address]; [place] [address] Business (1) In 6 weeks [...] counseling. Ordered: Office Visit Level 3 Est [id number] Orders: oxybutynin, 5 mg 1 tabs, Oral, BID, # 90 tabs, 0 Refill(s), Pharmacy : [facility] #[id number], 1 tabs Oral BID
--- OUTSIDE RECORDS SUMMARY | 2017-08-11 00:03 | External Medical Summary | Referral Summary ---
:1930 Author Organization [facility] Address [address] [place] [address] [place] Saucedo [address] Care Team Providers Name Role Phone Arlen Jennings Primary Care Physician Encounter VC Date(s): 08/21/15 - 08/21/15 [facility] [address] [place] [address] [place] Saucedo [address] [place] Discharge Diagnosis: Essential hypertension Discharge Diagnosis: Hx of transient ischemic attack (TIA) Discharge Diagnosis: Hypothyroidism Discharge Disposition: 01-Home or Self Care Attending Physician: Ryan Ibarra MD Admitting Physician: yRan Ibarra MD Vital Signs Most recent to [...] Follow Up With: Where: When: Ryan Ibarra [address] [place] [address] Drive; [place] [address] Business (4) In 4 months 12/22/2015 Comments: Extracted from: Title: Office Visit Note Author: Ryan Ibarra MD Date: 08/21/15 Assessment/Plan Essential hypertension He will continue his same medication. Hx of transient ischemic attack (TIA) He will continue aspirin. Hypothyroidism He will continue his same medication.
--- OUTSIDE RECORDS SUMMARY | 2017-08-11 00:03 | External Medical Summary | Referral Summary ---
:1930 Author Organization [facility] Address [address] [place] [address] PA[place] Saucedo [address] Care Team Providers Name Role Phone Arlen Jennings Primary Care Physician Encounter VC Date(s): 08/11/15 - 08/11/15 [facility] [address] [place] [address] [place] Sau[place]o [address] [place] Discharge Disposition: 01-Home or Self Care Attending Physician: yRan Ibarra MD Admitting Physician: Ryan Ibarra MD [...]
--- OUTSIDE RECORDS SUMMARY | 2017-08-11 00:03 | External Medical Summary | Referral Summary ---
:1930 Author Organization [facility] Address [address] [place] [address] PAUL[place] Saucedo [address] Care Team Providers Name Role Phone Ryan Ibarra Primary Care Physician Encounter VC Date(s): 05/11/15 - 05/11/15 [facility] [address] [place] [address] PA[place] Saucedo [address] [place] Discharge Diagnosis: Vitamin B 12 deficiency Discharge Diagnosis: B12 deficiency Discharge Disposition: 01-Home or Self Care Attending [...] 22 Assessment and Plan Extracted from: Title: Vit B 12 inj Author: Tierra Cortez RN Date: 05/11/15 Vitamin B 12 given IM 1,000 mcg in left deltoid by procedure nurse today.
--- OUTSIDE RECORDS SUMMARY | 2017-08-11 00:03 | External Medical Summary | Referral Summary ---
:1930 Author Organization [facility] Address [address] [place] [address] PAUL[place] Saucedo [address] Care Team Providers Name Role Phone Ryan Ibarra Primary Care Physician Encounter VC Date(s): 04/11/15 - 04/11/15 [facility] [address] [place] [address] PA[place] Saucedo [address] [place] Discharge Diagnosis: Overactive [...] Follow Up With: Where: When: Ryan Ibarra [address] [place] [address] Drive; [place] [address] Business (1) Within 3 to 5 days Comments: Follow Up With: Where: When: Leopoldo Vargas [address]; [place] [address] Business (1) In 6 weeks [...] counseling. Ordered: Office Visit Level 3 Est [id number] Orders: oxybutynin, 5 mg 1 tabs, Oral, BID, # 90 tabs, 0 Refill(s), Pharmacy : [facility] #[id number], 1 tabs Oral BID
[2017-08-11] MEDS: SALINE FLUSH 10ml SYRINGE IVF PRN (01:10)
[2017-08-11] MEDS ORDERED: HYDROMORPHONE 2 MG/ML INJECTION IVP PRN (02:07)
[2017-08-11] MEDS ORDERED: ONDANSETRON 4 MG/2 ML INJECTION IVP PRN ×2 (02:07→13:55)
[2017-08-11 02:09] VITALS: BMI 25.6
[2017-08-11] MEDS: NS 1,000 ML IV SCH ×3 (02:28→18:41)
[2017-08-11] MEDS ORDERED: HYDRALAZINE 20 MG/ML INJECTION IVP PRN (02:36)
--- NOTE | 2017-08-11 02:45 | History & Physical Report ---
<Alejandro Briceno - Last Filed: 08/11/17 02:42> History of Present Illness Date: 08/11/17 Chief complaint: right hip pain HPI: This is a 87 y/o male with mild dementia who lives at a local custodial. The patient tripped tonight and fell landing on his right hip. The patient had immediate pain. EMS transport demonstrated an intertrochanteric right femur fracture. The patient is very mobile typically and would be an excellent candidate to have repaired Review of Systems Review of systems: This patient has some dementia but able to provide meaningful information. no headache, no neck pain, no chest pain, note that he is able to perform ADLs without chest pain. aware of previous cardiac history. The patient has no cough , no PND, no orthopnea, no heart palpitations, no abdomen pain, bowel movements normal without blood, no edema to legs, no focal neuro complaints. of course has right hip pain. 12 point ROS was otherwise neg except for outlined above. 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 CVA 2013. Endarterectomy 2009. Cataract extraction 2004. Biopsy 2013. Arthroscopic meniscectomy 2002. Colonoscopy 2002. Dissection 2002. TURP 1998. Hernia repair 1995. Amputation finger 1959. Appendectomy 1951 Family History: Family History (Last Reviewed 08/07/17 @ 15:25 by SHIRLENE Galvin) Mother CVA (cerebral vascular accident) Father Pulmonary embolism - Social History Smoking status: Never smoker Medications Home Medications Medication Instructions Recorded Confirmed Type Finasteride 5 mg PO DAILY #0 01/04/12 08/11/17 History Donepezil HCl [Aricept] 5 mg PO HS #0 tab 12/20/13 08/11/17 History Zocor (simvastatin) 20 mg tablet 20 mg PO HS 04/02/17 08/11/17 History loperamide 2 mg tablet 2 mg PO DAILY PRN tab 04/02/17 08/11/17 History oxybutynin chloride 5 mg tablet 5 mg PO DAILY tab 04/02/17 08/11/17 History Levothyroxine Sodium 100 mcg PO DAILY #0 04/22/17 08/11/17 History Norvasc (amlodipine) 5 mg tablet 5 mg PO DAILY tab 04/22/17 08/11/17 History Probiotic Formula 1 cap PO DAILY 04/22/17 08/11/17 History aspirin 325 mg tablet 325 mg PO DAILY tab 04/22/17 08/11/17 History lutein 6 mg capsule 6 mg PO DAILY cap 04/22/17 08/11/17 History Mapap Extra Strength 500 mg tablet 1,000 mg PO BID tab 08/07/17 08/11/17 History Zoloft (sertraline) 25 mg tablet 25 mg PO HS tab 08/07/17 08/11/17 History lisinopril 10 mg tablet 10 mg PO DAILY tab 08/07/17 08/11/17 History Cyanocobalamin (B-12) [Vit. B-12] 1,000 mcg IM 1 MONTH 08/11/17 08/11/17 History Fludrocortisone [Florinef] 0.1 mg PO DAILY 08/11/17 08/11/17 History L. Acidophilus/Lactobac Spor 1 tab PO DAILY 08/11/17 08/11/17 History [Acidophilus X-Str Captab] Allergies Allergy/AdvReac Type Severity Reaction Status Date / Time No Known Allergies Allergy Verified 08/11/17 02:45 Exam Vital Signs: Temperature 97.5 F 08/11/17 02:07 Pulse Rate 62 08/11/17 02:07 Respiratory Rate 18 08/11/17 02:07 Blood Pressure 192/109 H 08/11/17 02:07 Pulse Oximetry 92 08/11/17 02:07 Height/Weight/BMI: Height 1.83 m Weight 85.7 kg Body Mass Index 25.6 - Constitutional Present: mild distress, well developed, average body habitus, cooperative - Routine HEENT Exam Head: Present: normocephalic, atraumatic ENT: Present: mucous membranes moist - Routine Neck Exam Present: supple, full ROM - Routine Respiratory Exam Present: CTA bilaterally - Routine Cardiovascular Exam Present: RRR, no murmur - Routine Abdominal Exam Present: soft, normoactive bowel sounds, non distended, non tender - Routine Extremities Exam Present: no edema Comments: patient with shortened right leg , tender with any motion per nursing. did not make him reporduce pain at this time - Routine Skin Exam Present: intact - Routine Neurological Exam Present: alert - Routine Psychiatric Exam Present: normal affect Results - Labs CBC & Chem 7: 08/11/17 01:04 08/11/17 01:04 - Imaging and Cardiology Chest x-ray Additional comments: patient with tortuous aorta which gives impression of widened mediastinum, othewise unremarkable Assessment and Plan (1) Intertrochanteric fracture of right hip Current visit: Yes Status: Acute 08/11/17 02:47 mechanical fall with intertroch fx. npo, from an operative perspective he is at moderate risk but his METS are acutallyat least 4 and he has no chest pain with activity. Will followup EKG pre op and if on b [place] taj need [place] pirro to surgery. His K is slighly low and need to be replaced prior to surgery. Othewise should be okay to go to surgery. (2) Dementia Current visit: Yes Status: Acute 08/11/17 02:48 type unkown , appears to be on disease stabalizing meds. continue these meds afte rsurgery. currently is appropraite in his responses and his disease is probable mild to at most moderate in severity. (3) Hypertension Current visit: Yes Status: Acute 08/11/17 02:49 patient is hypertensive at this time. will tx with prn hydralzine iv and if on b [place] continue this pre op. (4) Coronary artery disease Current visit: Yes Status: Acute 08/11/17 02:50 history of. at this time no chest pain. will need to followup ekg pre op. currently appears to be compensated. (5) Hypothyroid Current visit: Yes Status: Acute 08/11/17 02:50 continue synthroid supplimentaiton DVT Prophylaxis: SCD's GI Prophylaxis: Protonix Resuscitation Status: Full Code Hospital Course Summary Disclaimer: The visit summary below is not to be considered part of the above Progress Note. <Vonda Delvalle - Last Filed: 08/11/17 10:37> History of Present Illness Date: 08/11/17 [facility] Family History: Family History (Last Reviewed 08/07/17 @ 15:25 by SHIRLENE Galvin) Mother CVA (cerebral vascular accident) Father Pulmonary embolism Exam Vital Signs: Temperature 96.5 F L 08/11/17 08:16 Pulse Rate 64 08/11/17 08:16 Respiratory Rate 18 08/11/17 08:16 Blood Pressure 160/96 H 08/11/17 08:16 Pulse Oximetry 90 08/11/17 08:16 Height/Weight/BMI: Height 1.83 m Weight 85.7 kg Body Mass Index 25.6 Results - Labs CBC & Chem 7: 08/11/17 05:02 08/11/17 05:02 Assessment and Plan (1) Intertrochanteric fracture of right hip Current visit: Yes Status: Acute (2) Dementia Current visit: Yes Status: Acute (3) Hypertension Problem details: With orthostasis Current visit: Yes Status: Acute Assessment and Plan: Dr. Briceno's note reviewed. Mr. Ring interviewed and examined. His daughter Padmini provided supplemental history. CC: Fall, right hip pain HPI: Mr. Ring is an 87-year-old male who lives at [place]. The patient slipped and fell at the custodial yesterday evening with resultant immediate pain in his right hip and inability to get up. EMS was contacted and patient transferred to the emergency room where he was found to have an acute right IT fracture. The patient's daughter reports mild right-sided weakness following a stroke 3 years ago but the patient is typically ambulatory with a walker. He's had no other falls or fractures but occasionally slides off of furniture. Patient has a history of orthostatic hypertension but denies preceding dizziness yesterday. He additionally denies chest pain, difficulty breathing, or focal neurological deficits recently or occurring in conjunction with his fall. Patient is hospitalized in anticipation of surgical stabilization of the fracture. PH/SH/FH: agree with that recorded above with additions of history of B-12 deficiency, history essential tremor, BPH, and stroke 2013 with minor residual right weakness. The patient has a history of alcohol use but is no longer drinking. He is and lives at [place] in the custodial. He has a living well but is a full code. His daughter, Padmini Harrell, is his DPOA. Dr. Arlen Jennings is his primary care physician. ROS: 10 point review EXAM: Lfqwjev-qqlb-ccnmdj, NAD, slightly drowsy, 98.3, 176/82 HEENT-PERRL, EOMI without nystagmus, conjunctiva clear, sclera anicteric, conjugate gaze, left facial droop, oropharynx clear, neck supple and without adenopathy Lungs-respirations nonlabored, good airflow, breath sounds clear Cardiac-regular cardiac rhythm, S1-S2, without murmur Abd-soft, nontender, diminished bowel sounds Ext-without edema, left index finger surgically absent Musculoskeletal-right leg is shortened and externally rotated relative to some leftover it should be noted that his knee is slightly flexed Skin-no rash or wounds noted Neuro-cranial nerves notable for left facial droop, sensation intact to light touch 4 extremities, no tremor appreciated, normal motor tone, able to wiggle toes on both feet, 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 Chest x-rays also been reviewed by myself demonstrating tortuous aorta but clear lung conn. EKG demonstrates borderline left axis deviation and nonspecific duction block, diffuse T-wave flattening but no acute changes by my review. Leukocytosis present this morning consistent with stress reaction-white count 15.3, hemoglobin 14.1-13.5; mild hypokalemia-3.4, creatinine 0.7, liver enzymes unremarkable. A/P: Right IT fracture Dementia, mild Hypertension Orthostatic hypotension History CVA with residual right-sided weakness Hypokalemia BPH Hyperlipidemia Hypothyroidism Questionable history of heart disease-no further information Case discussed with Dr. Chi-CARMENZAF scheduled for later this morning. Potassium replacement initiated. Blood pressure control suboptimal at present but may be due to pain and history orthostasis and chronic treatment with Florinef will require modification of standing blood pressures primarily. Stable to proceed to the operating room. Discussed with patient's DPOA/daughter. Hospital Course Summary Disclaimer: The visit summary below is not to be considered part of the above Progress Note. Hospital Course: 08/11/17 Admitted after fall at [place] resulting in right IT fracture. Dr. Chi consulted-to the operating room today for ORIF.
[2017-08-11] MEDS: LEVOTHYROXINE 100 MCG TABLET PO SCH (07:48)
--- NOTE | 2017-08-11 08:01 | Orthopedic Consult Note ---
Orthopedic Consultation HPI - Consultation Info Consult Date: 08/11/17 Attending Physician: Vonda Delvalle MD Consult Reason: fracture - History of Present Illness Parrish is an active and pleasant 87yo male who lives at [place]. He had a fall last evening and injured his right hip. He had immediate pain that was severe and he was unable to ambulate. He was brought to [facility] [place] where xrays showed a IT fx of the right hip. He was admitted by the hospitalist service and orthopedics consulted. Parrihs reports pain with movement of the right leg. The right leg is shortened and externally rotated. He has some dementia but answers questions quite well this AM. He has some difficulties with speech from an old CVA. Review of Systems - Constitutional Constitutional: Absent: fever(s), headache(s) - EENT Eyes: Absent: change in vision Ears, nose, mouth, throat: Absent: headaches - Cardiovascular Cardiovascular: Absent: chest pain, dyspnea on exertion - Respiratory Respiratory: Absent: cough, dyspnea - Gastrointestinal Gastrointestinal: Present: other (He reports loose stools prior to this admission.). Absent: abdominal pain - Genitourinary Genitourinary General: Absent: fever(s) - Musculoskeletal Musculoskeletal: Present: as per HPI, other (No other joints are painful.) - Integumentary/Breasts Integumentary: Absent: lesions, rash, wounds - Neurological Neurological: Absent: numbness, tingling - Psychiatric Psychiatric: Present: other (Some dementia recorded in records.) [facility] Patient Stated Medical History Dementia Yes Transient Ischemic Attacks ( Yes TIA) Other HEENT Yes: WEARS UPPER AND LOWER DENTURES-LEFT AT SEMMES Hypertension Yes Other Yes: ENLARGED PROSTATE, OVERACTIVE BLADDER Chemotherapy Yes Clinic Medical History (Last Reviewed 08/07/17 @ 15:25 by SHIRLENE Galvin) Benign colon polyp (Chronic Medical) 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 CVA 2013. Endarterectomy 2009. Cataract extraction 2004. Biopsy 2013. Arthroscopic meniscectomy 2002. Colonoscopy 2002. Dissection 2002. TURP 1998. Hernia repair 1995. Amputation finger 1959. Appendectomy 1951 Family History: Family History (Last Reviewed 08/07/17 @ 15:25 by SHIRLEEN Galvin) Mother CVA (cerebral vascular accident) Father Pulmonary embolism - Social History Smoking status: Never smoker Medications Home Medications Medication Instructions Recorded Confirmed Type Finasteride 5 mg PO DAILY #0 01/04/12 08/11/17 History Donepezil HCl [Aricept] 5 mg PO HS #0 tab 12/20/13 08/11/17 History Zocor (simvastatin) 20 mg tablet 20 mg PO HS 04/02/17 08/11/17 History loperamide 2 mg tablet 2 mg PO DAILY PRN tab 04/02/17 08/11/17 History oxybutynin chloride 5 mg tablet 5 mg PO DAILY tab 04/02/17 08/11/17 History Levothyroxine Sodium 100 mcg PO DAILY #0 04/22/17 08/11/17 History Norvasc (amlodipine) 5 mg tablet 5 mg PO DAILY tab 04/22/17 08/11/17 History Probiotic Formula 1 cap PO DAILY 04/22/17 08/11/17 History aspirin 325 mg tablet 325 mg PO DAILY tab 04/22/17 08/11/17 History lutein 6 mg capsule 6 mg PO DAILY cap 04/22/17 08/11/17 History Mapap Extra Strength 500 mg tablet 1,000 mg PO BID tab 08/07/17 08/11/17 History Zoloft (sertraline) 25 mg tablet 25 mg PO HS tab 08/07/17 08/11/17 History lisinopril 10 mg tablet 10 mg PO DAILY tab 08/07/17 08/11/17 History Cyanocobalamin (B-12) [Vit. B-12] 1,000 mcg IM 1 MONTH 08/11/17 08/11/17 History Fludrocortisone [Florinef] 0.1 mg PO DAILY 08/11/17 08/11/17 History L. Acidophilus/Lactobac Spor 1 tab PO DAILY 08/11/17 08/11/17 History [Acidophilus X-Str Captab] Allergies Allergy/AdvReac Type Severity Reaction Status Date / Time No Known Allergies Allergy Verified 08/11/17 02:45 Orthopedic Exam Vital signs: Temperature 97.7 F 08/11/17 05:02 Pulse Rate 58 L 08/11/17 05:02 Respiratory Rate 18 08/11/17 05:02 Blood Pressure 148/83 H 08/11/17 05:02 Pulse Oximetry 90 08/11/17 05:02 - Constitutional General Appearance: Present: alert, cooperative, no acute distress - Respiratory Exam Present: non-labored - Cardiovascular Exam Present: pedal pulses intact Capillary Refill: < 2-3 Seconds - Extremities Exam Present: no edema, pulses intact, normal capillary refill. Absent: calf tenderness - Integumentary Exam Present: pink, warm, dry - Neurological Exam Present: no deficits - Psychiatric Exam Present: alert - Labs Result Diagrams: 08/11/17 05:02 08/11/17 05:02 Abnormal lab results 08/11/17 08/11/17 Range/Units 05:02 05:02 WBC 15.3 H D (4.5-11.0) T/MM3 RBC 4.17 L (4.50-5.90) M/MM3 Hct 40.1 L (41-53) % Neut % (Auto) 84.6 H (33-66) % Lymph % (Auto) 7.6 L (23-45) % Neut # (Auto) 12.9 H (1.8-7.7) T/MM3 [place] # (Auto) 1.2 H (0-0.8) T/MM3 Potassium 3.4 L (3.6-5) MEQ/L Chloride 108 H (98-107) MEQ/L BUN 22.0 H (9-20) MG/DL Creatinine 0.7 L (0.8-1.5) MG/DL BUN/Creatinine Ratio 31 H (6-26) RATIO Glucose 145 H (75-110) MG/DL Calculated Osmolality 283 H (261-280) MOSM/KG H & H 08/11/17 Range/Units 05:02 Hgb 13.5 (13.5-17.5) GM/DL Hct 40.1 L (41-53) % Impression and Recommendation (1) Intertrochanteric fracture of right hip Current visit: Yes Qualifiers: Encounter type: initial encounter Fracture type: closed Fracture alignment: nondisplaced Qualified Code(s): S72.144A - Nondisplaced intertrochanteric fracture of right femur, initial encounter for closed fracture Status: Acute Parrish has remained active and should be a good candidate to fix his hip. Will plan cephalomedullary fixation of the right hip sometime today. Dr Chi or Saira will talk with Parrish and his family before surgery to discuss risk vs benefits and possible complications. Labs and hospitalist notes reviewed. Pt is NPO. Hospital Course Summary Disclaimer: The visit summary below is not to be considered part of the above Progress Note.
[2017-08-11] MEDS ORDERED: CEFAZOLIN 1 G INJECTION IVP ONE (08:13)
[2017-08-11] MEDS: ACETAMINOPHEN 500 MG TABLET PO SCH ×2 (08:26→21:44)
--- NOTE | 2017-08-11 08:43 | XRay Report ---
Indication: preop, hip fracture PROCEDURE: XR chest 1V: Encounter: Initial Comparison: December 20, 2013 Findings: The lungs are stable in appearance without new focal airspace consolidation. There is no pleural effusion or pneumothorax. The heart size is unchanged. Tortuous ectatic thoracic aorta. Cannot entirely exclude a thoracic aortic aneurysm. IMPRESSION: No pneumonia or congestive failure. Thoracic aortic ectasia and possible aneurysm. .
--- NOTE | 2017-08-11 08:45 | XRay Report ---
Indication: fell at the halfway, right hip/femur pain PROCEDURE: AP and Lateral views of the Right Femur Encounter: Initial Comparison: None Findings: Comminuted foreshortened and mildly displaced intertrochanteric right femoral fracture. No additional acute fracture or dislocation seen. Moderate hip joint space narrowing. Arterial vascular calcifications. No significant angulation on the crosstable lateral view. Impression: Closed posttraumatic intertrochanteric right femoral fracture. .
--- NOTE | 2017-08-11 08:45 | XRay Report ---
Indication: patient fell at the halfway, right hip/femur pain PROCEDURE: XR pelvis 1-2V: Encounter: Initial Comparison: Femur radiographs from the same time Findings: Intertrochanteric right femoral fracture is again noted. No additional acute fracture or dislocation. Mild bony demineralization. Impression: Closed posttraumatic intertrochanteric right femoral fracture. .
[2017-08-11] MEDS: LIDOCAINE 1% 2ml INJ 10 MG, POTASSIUM CHLORIDE INJ 10 MEQ in NS 100 ML IV SCH ×2 (09:32→16:13)
--- NOTE | 2017-08-11 10:57 | Anesthesia Preoperative Report ---
Anesthesia Preoperative Record - Date and Time Date: 08/11/17 Preoperative Diagnosis: fractured right hip Proposed Procedure: Right hip Gamma nail. NPO Since Date: 08/11/17 NPO Since Time: 00:56 Allergies/Adverse Reactions: Allergies Allergy/AdvReac Type Severity Reaction Status Date / Time No Known Allergies Allergy Verified 08/11/17 02:45 - Vital Signs Vital Signs: Temperature 98.3 F 08/11/17 10:28 Pulse Rate 65 08/11/17 10:30 Respiratory Rate 12 08/11/17 10:28 Blood Pressure 176/82 H 08/11/17 10:28 Pulse Oximetry 90 08/11/17 10:28 Height and Weight: Height 6 ft Weight 85.7 kg Body Mass Index 25.6 - Medications Inpatient Medications: Current Medications Acetaminophen (Tylenol) 1,000 mg PO BID [facility] Last Admin: 08/11/17 08:26 Dose: Not Given Hydrocodone Bitart/Acetaminophen (Zachary 5/325) 1 tab PO Q6H PRN PRN Reason: Pain Donepezil HCl (Aricept) 5 mg PO HS [facility] Hydralazine HCl (Apresoline) 10 mg IVP Q4H PRN PRN Reason: SBP >160 OR DBP >90 Hydromorphone HCl (Dilaudid) 0.5 mg IVP Q2H PRN PRN Reason: Pain Last Admin: 08/11/17 02:28 Dose: 0.5 mg Sodium Chloride (Normal Saline) 1,000 mls @ 100 mls/hr IV .Q10H [facility] Last Admin: 08/11/17 10:44 Dose: 100 mls/hr Levothyroxine Sodium (Synthroid) 100 mcg PO ACB [facility] Last Admin: 08/11/17 07:48 Dose: Not Given Ondansetron HCl (Zofran) 4 mg IVP Q6H PRN PRN Reason: Nausea &/or vomiting Sodium Chloride (Iv Flush) 10 - 80 ml IVF PRN PRN PRN Reason: Flushing Last Admin: 08/11/17 01:10 Dose: 10 ml Home Medications: Home Medications Medication Instructions Recorded Confirmed Type Finasteride 5 mg PO DAILY #0 01/04/12 08/11/17 History Donepezil HCl [Aricept] 5 mg PO HS #0 tab 12/20/13 08/11/17 History Zocor (simvastatin) 20 mg tablet 20 mg PO HS 04/02/17 08/11/17 History loperamide 2 mg tablet 2 mg PO DAILY PRN tab 04/02/17 08/11/17 History oxybutynin chloride 5 mg tablet 5 mg PO DAILY tab 04/02/17 08/11/17 History Levothyroxine Sodium 100 mcg PO DAILY #0 04/22/17 08/11/17 History Norvasc (amlodipine) 5 mg tablet 5 mg PO DAILY tab 04/22/17 08/11/17 History Probiotic Formula 1 cap PO DAILY 04/22/17 08/11/17 History aspirin 325 mg tablet 325 mg PO DAILY tab 04/22/17 08/11/17 History lutein 6 mg capsule 6 mg PO DAILY cap 04/22/17 08/11/17 History Mapap Extra Strength 500 mg tablet 1,000 mg PO BID tab 08/07/17 08/11/17 History Zoloft (sertraline) 25 mg tablet 25 mg PO HS tab 08/07/17 08/11/17 History lisinopril 10 mg tablet 10 mg PO DAILY tab 08/07/17 08/11/17 History Cyanocobalamin (B-12) [Vit. B-12] 1,000 mcg IM 1 MONTH 08/11/17 08/11/17 History Fludrocortisone [Florinef] 0.1 mg PO DAILY 08/11/17 08/11/17 History L. 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 controlled with meds.) Other History: Reports: Cancer - Surgical History GI Surgery/Treatments: Reports: Appendectomy Musculoskeletal Surgery/Tx: Reports: Other (LEFT POINTER FINGER AMPUTATION) Anesthesia Reactions: None Hx Family Anesthesia Reaction: No History of Motion Sickness: No - Social History Smoking Status: Never smoker Substance Use Type: does not use Alcohol Intake Frequency: does not drink - Pertinent Findings Laboratory: CBC and BMP 08/11/17 05:02 08/11/17 05:02 BMP 08/11/17 05:02 Sodium 144 Potassium 3.4 L Chloride 108 H Carbon Dioxide 26 BUN 22.0 H Creatinine 0.7 L Glucose 145 H Calcium 8.5 EKG: Sinus Rhythm - Physical Exam Respiratory Exam: Present: lungs clear, bilateral breath sounds equal Cardiovascular Exam: Present: regular rate and rhythm, no murmur - Airway Assessment Mallampati Score: II TMD: 3 Fingerbreadths Neck Extension: fair Teeth: upper dentures, lower dentures Overall Assessment: no airway concerns - ASA ASA Score: 3 - Plan Anesthesia: General Inhalation Gases - Discussion Discussion: Discussed risks/options/alternatives of anesthesia and questions answered. Patient consents. Nursing pain assessment noted. Present for Discussion: spouse, children Attestation Statement: Prior to the delivery of any anesthetic medication, I examined the patient, developed the plan, obtained the patient's consent and discussed the risk and benefits of the procedure with the patient/guardian. - Additional Information Seen by Anesthesia: Yes
[2017-08-11] MEDS ORDERED: KETAMINE 500 MG/10 ML INJECTION ONE (11:04)
[2017-08-11] MEDS ORDERED: MIDAZOLAM 2mg/2ml INJECTION ONE (11:04)
[2017-08-11] MEDS ORDERED: FentaNYL 100 MCG/2 ML INJECTION ONE (11:04)
[2017-08-11] MEDS ORDERED: HYDROMORPHONE 2 MG/ML INJECTION ONE (11:25)
[2017-08-11] MEDS ORDERED: PROPOFOL 1,000 MG/100 ML VIAL IV ONE (11:55)
[2017-08-11] MEDS ORDERED: PROPOFOL 20 ML ONE (11:55)
[2017-08-11] MEDS ORDERED: BUPIVACAINE 0.25% (2.5mg/ml) PF 30ml INJECTION ID ONE (12:18)
--- NOTE | 2017-08-11 12:36 | Post Procedure Note ---
Date of Procedure: 08/11/17 Orthopedic Surgeon: Arti Orthopedic Assisting Surgeon: Alejandro Fay Anesthesia: General Inhalation Gases Procedure: Procedures Operation Date: 08/11/17 12:00 Actual Procedures p ORIF Intertrochanteric Hip (gamma nail, long)(Right) - Ihsan Chi MD Condition: Stable Disposition: PACU
--- NOTE | 2017-08-11 12:43 | Remote Fluorsocopy Report ---
EXAM: RF hip RT 2 view COMPARISON: None available. HISTORY: R HIP GAMMA NAIL . FINDINGS: Fluoroscopy time: 112.8 seconds. Number of images: 7 IMPRESSION: Seven portable Intra-Op C-arm images shows placement of a intramedullary lulu and fixation screw transfixing an intertrochanteric fracture which appears to be in good position and alignment. LOCATION OF DICTATION: [facility] .
[2017-08-11] MEDS ORDERED: SENNA + DOCUSATE TABLET PO PRN (13:55)
[2017-08-11] MEDS ORDERED: ALBUTEROL 2.5mg/3ml (0.083%) NEB AEROSOL ONE (14:09)
--- NOTE | 2017-08-11 14:12 | Operative Note ---
DATE: 08/11/2017 PREOPERATIVE DIAGNOSIS Right closed comminuted intertrochanteric hip fracture. POSTOPERATIVE DIAGNOSIS Right closed comminuted intertrochanteric hip fracture. PROCEDURE Right intertrochanteric hip fracture intramedullary nailing. SURGEON Ihsan Chi MD STENCIL CUTTER MACHINE DANIKA Jack ANESTHESIA TIVA with local. FLUIDS Please refer to Anesthesia chart. EBL Approximately 75. COMPLICATIONS None. CONDITION Stable to Recovery Room. IMPLANTS Triston Gamma3 nail measuring 11 x 420 mm with 110 mm cephalomedullary screw and 5 mm x 50 mm and 5 mm x 47.5 mm distal locking screws. DESCRIPTION OF PROCEDURE The patient was identified in preoperative holding area. The operative extremity was identified and appropriately marked. The risks, benefits, alternatives and potential complications were discussed with the patient and his daughter and informed consent was obtained. The patient was taken to the operating theatre and TIVA anesthesia was administered. The patient was then transferred to the fracture table. Peroneal post was placed. Upper body and extremities were placed in safe position. Both lower extremities were placed in padded traction boots and placed on the fracture table. The distal portion of the table was then removed. Closed reduction maneuver was applied to the right hip and then the right hip was placed in traction. The left nonoperative extremity was placed in an extended position. Fluoroscopy was brought in to visualize the reduction. We applied additional traction through the fracture table and obtained good reduction. There was comminution of the calcar and lesser trochanter. Position was confirmed in the AP and lateral planes. The right lower extremity was then sterilely prepped and draped in the usual fashion. Surgical time-out was performed, confirmed with myself, the automotive lot attendant and circulating nurse. Preoperative antibiotics were given. Surgical landmarks were delineated on the skin with a surgical marking pen. A 4 cm incision was then created just proximal to the greater trochanter. Blunt dissection was carried down to the gluteal fascia. The gluteal fascia was sharply incised at the tip of the trochanter. Fluoroscopic guidance was used to insert the guide pin proximally. Once appropriate position was obtained in the AP and lateral planes the opening canal reamer was introduced and deployed. The short guide pin was exchanged for a long guide lulu. Position was confirmed at the knee. This was then measured and we determined a 420 mm nail would suffice. Sequential reaming was then performed up to a 12.5 mm reamer. 11 x 420 mm nail was opened at the back table and applied to the insertion handle and guide. The nail was then impacted to the appropriate level. Note should be made the skin was anesthetized with 0.25% Marcaine prior to the injection. The external guide was then utilized for placement of the cephalomedullary screw. Position on the skin was identified. The skin and subcutaneous tissues were infiltrated with 0.25% Marcaine. A 2 cm incision was created. Blunt dissection was carried through the IT band and vastus lateralis fascia down to bone. The guide was inserted down to bone. The external guide was utilized to confirm depth of nail position. Following this the guidewire was advanced in a center-center position in the AP and lateral planes. The measuring device had been lost so we used the cephalomedullary reamer to help gauge our length. We opted for a 110 mm cephalomedullary screw length. This was then inserted stopping short of the subcortical position. The screw may have been a touch long but it was felt to be adequate. Traction was taken off of the leg and the compression device was used to help further compress at the fracture site. The locking screw was then inserted and the insertion handle for the cephalomedullary screw was removed. Distal locking screw guide was then placed in position and 45 degree lateral was obtained. Once adequate trajectory of the distal targeting guide was obtained the skin was anesthetized and two small areas on the lateral thigh for insertion of the distal locking screws. 1 cm incisions were created and blunt dissection was carried through the IT band and lateral tissue with a hemostat. The guide was then inserted. This was then drilled bicortically for both the dynamic and static locking holes. The screws were measured and subsequently inserted. Final fluoroscopic x-rays confirmed placement through the nail and overall good position in both the AP and lateral planes. The external guide was then removed. Final x-rays were obtained showing a well reduced and well-fixed comminuted intertrochanteric hip fracture. The wounds were copiously irrigated and closed in standard layered fashion. Sterile dressings were applied. The end of the table was replaced and the patient was taken out of traction boots. Peroneal post was removed. He was awakened from anesthesia after being moved over to his hospital bed. He was then awakened from anesthesia and taken to the recovery room in stable and satisfactory condition. . SARA
[2017-08-11] MEDS: NOZIN NASAL SWAB NAS SCH ×2 (17:44→21:45)
[2017-08-11] MEDS: CEFAZOLIN 1 G in NS 100 ML IV SCH (18:42)
[2017-08-11] MEDS: DONEPEZIL 5 MG TABLET PO SCH (21:44)
[2017-08-11] MEDS: ENOXAPARIN 40 MG/0.4 ML INJECTION SQ SCH (21:45)
[2017-08-12] MEDS: CEFAZOLIN 1 G in NS 100 ML IV SCH (03:19)
[2017-08-12] MEDS: NOZIN NASAL SWAB NAS SCH ×3 (05:32→21:47)
[2017-08-12] MEDS: LEVOTHYROXINE 100 MCG TABLET PO SCH (05:32)
--- NOTE | 2017-08-12 07:17 | Orthopedic Progress Note ---
Date: Subjective/Severity of Illness: Parrish slept well last night. He is on 2L via NC. He denies CP or SOB. His hip hurts if he lays on his right side, otherwise pain is manageable. Orthopedic Objective PO Vital signs: Temperature 99.2 F 08/12/17 03:24 Pulse Rate 69 08/12/17 03:24 Respiratory Rate 16 08/11/17 19:05 Blood Pressure 129/74 08/12/17 03:24 Pulse Oximetry 91 08/12/17 03:24 Height and Weight: Height 6 ft Weight 188 lb 14.978 oz Body Mass Index 25.6 - Constitutional General Appearance: Present: alert, cooperative, no acute distress - Respiratory Exam Present: non-labored - Cardiovascular Exam Present: pedal pulses intact Capillary Refill: < 2-3 Seconds - Abdominal Exam Present: soft - Extremities Exam Extremities: Present: pulses intact. Absent: calf tenderness - Hip Exam Hip Exam: Present: alignment normal, decreased ROM (felxion), decreased ROM ( rotation) - Surgical Site Incision: clean, dry, intact, dressing intact - Integumentary Exam Present: pink, warm, dry - Neurological Exam Present: no deficits - Psychiatric Exam Present: alert - Labs Result Diagrams: 08/12/17 03:55 08/12/17 03:55 Abnormal lab results 08/12/17 08/12/17 Range/Units 03:55 03:55 RBC 3.58 L (4.50-5.90) M/MM3 Hgb 11.4 L D (13.5-17.5) GM/DL Hct 35.2 L D (41-53) % Neut % (Auto) 68.1 H (33-66) % Lymph % (Auto) 13.8 L (23-45) % [place] % (Auto) 17.8 H (0-9.0) % [place] # (Auto) 1.8 H (0-0.8) T/MM3 Sodium 146 H (134-144) MEQ/L Chloride 112 H (98-107) MEQ/L BUN 25.0 H (9-20) MG/DL BUN/Creatinine Ratio 31 H (6-26) RATIO Glucose 112 H (75-110) MG/DL Calculated Osmolality 286 H (261-280) MOSM/KG Calcium 8.1 L (8.4-10.2) MG/DL H & H 08/11/17 08/12/17 Range/Units 05:02 03:55 Hgb 13.5 11.4 L D (13.5-17.5) GM/DL Hct 40.1 L 35.2 L D (41-53) % Orthopedic Assessment and Plan (1) Intertrochanteric fracture of right hip Status: Acute Qualifiers: Encounter type: initial encounter Fracture type: closed Fracture alignment: nondisplaced Qualified Code(s): S72.144A - Nondisplaced intertrochanteric fracture of right femur, initial encounter for closed fracture Assessment and Plan: S/P right hip IM nail for IT fracture by Dr. Chi on 08/11/17. Lovenox 40 mg SQ Q Day for 30 days post op for DVT prevention PT/OT for mobilization continue pain control discharge plan is back to [place] eventually. - Anticoagulation Therapy Anticoagulation: Lovenox 40 mg SQ Daily x 30 days from day of surgery Hospital Course Summary Disclaimer: The visit summary below is not to be considered part of the above Progress Note. Hospital Course: 08/11/17 Admitted after fall at [place] resulting in right IT fracture. Dr. Chi consulted-to the operating room today for ORIF.
[2017-08-12] MEDS ORDERED: INFLUENZA VAC. INJ. ADMIN CHARGE INJ ONE (07:35)
[2017-08-12] MEDS ORDERED: PNEUMOCOCCAL VAC ADMIN CHARGE INJ ONE (07:36)
[2017-08-12] MEDS: NS 1,000 ML IV SCH ×4 (08:07→21:47)
--- NOTE | 2017-08-12 09:17 | Progress Note ---
<Marline Dwyer - Last Filed: 08/12/17 09:14> Subjective: Patient is seen today sitting up in his chair. His only complaint at this time is pain in his hip/leg. He reports his appetite is good. Last bowel movement was yesterday. He slept well last night. Nurses currently have no complaints. Objective Vital signs: Temperature 98.3 F 08/12/17 07:26 Pulse Rate 66 08/12/17 07:26 Respiratory Rate 18 08/12/17 07:26 Blood Pressure 162/91 H 08/12/17 07:26 Pulse Oximetry 94 08/12/17 07:26 Height/Weight/BMI: Height 1.83 m Weight 88 kg Body Mass Index 25.6 - Constitutional Present: no acute distress, well nourished, well developed - Routine Respiratory Exam Present: CTA bilaterally, crackles (right lower lung). Absent: wheezes - Routine Cardiovascular Exam Present: RRR, S1, S2. Absent: murmur - Routine Abdominal Exam Present: soft, normoactive bowel sounds, non distended. Absent: tenderness - Routine Extremities Exam Present: edema (1-2+ right foot), no edema (left lower extremity), normal capillary refill - Routine Skin Exam Present: dry, warm - Routine Neurological Exam Present: alert, moving all extremities, tremors - Routine Lymphatic Exam Lymphatic: Absent: adenopathy - Routine Psychiatric Exam Present: normal affect, cooperative Results - Labs CBC & Chem 7: 08/12/17 03:55 08/12/17 03:55 Assessment and Plan (1) Intertrochanteric fracture of right hip Current visit: Yes Status: Acute (2) Dementia Current visit: Yes Status: Acute (3) Hypertension Problem details: With orthostasis Current visit: Yes Status: Acute Assessment and Plan: Assessment: Right IT fracture - s/p ORIF with IM nail by Dr. Chi on 08/11/17 Dementia, mild Hypertension Orthostatic hypotension History CVA with residual right-sided weakness Hypokalemia BPH Hyperlipidemia Hypothyroidism Questionable history of heart disease-no further information Plan Continue Lovenox 40 mg subcutaneous daily for 30 days postop for DVT prevention (through Sep 10) PT/OT for mobilization Continue pain control as needed Blood pressures and labs are stable When stable, plan is to discharge back to [facility] Course Summary Disclaimer: The visit summary below is not to be considered part of the above Progress Note. Hospital Course: Right IT fracture - s/p ORIF with IM nail by Dr. Chi on 08/11/17 Dementia, mild Hypertension Orthostatic hypotension History CVA with residual right-sided weakness Hypokalemia BPH Hyperlipidemia Hypothyroidism Questionable history of heart disease-no further information 08/11/17 - Hospital admission Case discussed with Dr. Chi-ORIF scheduled for later this morning. Potassium replacement initiated. Blood pressure control suboptimal at present but may be due to pain and history orthostasis and chronic treatment with Florinef will require modification of standing blood pressures primarily. Stable to proceed to the operating room. Discussed with patient's DPOA/daughter. 08/11/17 -ortho Admitted after fall at [facility] resulting in right IT fracture. Dr. Chi consulted-to the operating room today for ORIF. 08/12/17 Continue Lovenox 40 mg subcutaneous daily for 30 days postop for DVT prevention (through Sep 10) PT/OT for mobilization Continue pain control as needed Blood pressures and labs are stable When stable, plan is to discharge back to [facility] <Vonda Delvalle - Last Filed: 08/12/17 15:41> Objective Vital signs: Temperature 96.2 F L 08/12/17 14:43 Pulse Rate 63 08/12/17 14:43 Respiratory Rate 18 08/12/17 14:43 Blood Pressure 129/77 08/12/17 14:43 Pulse Oximetry 92 08/12/17 15:03 Height/Weight/BMI: Height 1.83 m Weight 88 kg Body Mass Index 25.6 Results - Labs CBC & Chem 7: 08/12/17 03:55 08/12/17 03:55 Assessment and Plan (1) Intertrochanteric fracture of right hip Current visit: Yes Status: Acute (2) Dementia Current visit: Yes Status: Acute (3) Hypertension Problem details: With orthostasis Current visit: Yes Status: Acute DVT Prophylaxis: Lovenox Resuscitation Status: Full Code Assessment and Plan: I have independently evaluated and examined this patient. I reviewed the chart, the patient's history, and the MAIL MACHINE OPERATOR/PA's documented findings as above. We discussed and formulated the assessment and plan as above with additions as below: Mr. Ring was up in a chair when seen today indicating that it was quite painful to put weight on his right leg when he transferred. He reported that he "could be better" but denied dyspnea or nausea. Hypoxia resolved overnight and he was off oxygen when seen. NAD Crackles at the bases bilaterally, respirations nonlabored Regular rhythm Abdomen soft, nontender, diminished bowel sounds No peripheral edema In addition to above diagnoses please add: Mild blood loss anemia Discussed with case management-anticipate discharge back to halfway at [facility] in 1-2 days but has had limited physical therapy thus far. PT suggested patient may be a candidate for IRU and will reassess tomorrow. Scheduled MiraLAX/Senokot for bowel prophylaxis. Hospital Course Summary Disclaimer: The visit summary below is not to be considered part of the above Progress Note.
[2017-08-12] MEDS: HYDROCODONE/APAP 5mg/325mg TABLET PO PRN ×3 (10:16→20:43)
[2017-08-12] MEDS: ACETAMINOPHEN 500 MG TABLET PO SCH ×2 (10:16→20:43)
[2017-08-12] MEDS ORDERED: PNEUMOCOCCAL 13 VACCINE 0.5ml INJECTION IM ONE (12:00)
[2017-08-12] MEDS ORDERED: INFLUENZA VAC High Dose 2017-18 (Fluzone HD*) (>=65yo) 0.5ml IM ONE (12:00)
[2017-08-12] MEDS: ENOXAPARIN 40 MG/0.4 ML INJECTION SQ SCH (20:43)
[2017-08-12] MEDS: DONEPEZIL 5 MG TABLET PO SCH (20:44)
[2017-08-12] MEDS: SENNA + DOCUSATE TABLET PO SCH (20:44)
[2017-08-13] MEDS: LEVOTHYROXINE 100 MCG TABLET PO SCH (06:02)
[2017-08-13] MEDS: NOZIN NASAL SWAB NAS SCH ×3 (06:02→20:29)
[2017-08-13] MEDS: HYDROCODONE/APAP 5mg/325mg TABLET PO PRN ×3 (06:05→17:28)
--- NOTE | 2017-08-13 08:17 | Orthopedic Progress Note ---
Date: Subjective/Severity of Illness: Parrish was asleep when I saw him this AM. Dressings are dry. K+ is a little low this AM. Hgb 10.9 , Renal function stable. Orthopedic Objective PO Vital signs: Temperature 98.7 F 08/13/17 03:00 Pulse Rate 65 08/13/17 03:58 Respiratory Rate 16 08/13/17 03:00 Blood Pressure 146/77 H 08/13/17 03:58 Pulse Oximetry 91 08/13/17 03:00 Height and Weight: Height 6 ft Weight 194 lb 0.108 oz Body Mass Index 25.6 - Constitutional General Appearance: Present: other (Sleeping.) - Respiratory Exam Present: non-labored - Abdominal Exam Present: soft - Extremities Exam Extremities: Present: pulses intact - Surgical Site Incision: dressing intact, no drainage - Labs Result Diagrams: 08/13/17 04:34 08/13/17 04:34 Abnormal lab results 08/13/17 08/13/17 Range/Units 04:34 04:34 RBC 3.39 L (4.50-5.90) M/MM3 Hgb 10.9 L (13.5-17.5) GM/DL Hct 33.1 L (41-53) % Neut % (Auto) 67.7 H (33-66) % Lymph % (Auto) 15.0 L (23-45) % [place] % (Auto) 16.0 H (0-9.0) % [place] # (Auto) 1.6 H (0-0.8) T/MM3 Potassium 3.3 L (3.6-5) MEQ/L Chloride 111 H (98-107) MEQ/L BUN 22.0 H (9-20) MG/DL Creatinine 0.7 L (0.8-1.5) MG/DL BUN/Creatinine Ratio 31 H (6-26) RATIO Calcium 8.1 L (8.4-10.2) MG/DL H & H 08/11/17 08/12/17 08/13/17 Range/Units 05:02 03:55 04:34 Hgb 13.5 11.4 L D 10.9 L (13.5-17.5) GM/DL Hct 40.1 L 35.2 L D 33.1 L (41-53) % Orthopedic Assessment and Plan (1) Intertrochanteric fracture of right hip Status: Acute Qualifiers: Encounter type: initial encounter Fracture type: closed Fracture alignment: nondisplaced Qualified Code(s): S72.144A - Nondisplaced intertrochanteric fracture of right femur, initial encounter for closed fracture Assessment and Plan: S/P right hip IM nail for IT fracture by Dr. Chi on 08/11/17. Lovenox 40 mg SQ Q Day for 30 days post op for DVT prevention PT/OT for mobilization continue pain control discharge plan is back to [place] eventually. - Anticoagulation Therapy Anticoagulation: Lovenox 40 mg SQ Daily x 30 days from day of surgery Hospital Course Summary Disclaimer: The visit summary below is not to be considered part of the above Progress Note. Hospital Course: Right IT fracture - s/p ORIF with IM nail by Dr. Chi on 08/11/17 Dementia, mild Hypertension Orthostatic hypotension History CVA with residual right-sided weakness Hypokalemia BPH Hyperlipidemia Hypothyroidism Questionable history of heart disease-no further information 08/11/17 - Hospital admission Case discussed with Dr. Chi-ORIF scheduled for later this morning. Potassium replacement initiated. Blood pressure control suboptimal at present but may be due to pain and history orthostasis and chronic treatment with Florinef will require modification of standing blood pressures primarily. Stable to proceed to the operating room. Discussed with patient's DPOA/daughter. 08/11/17 -ortho Admitted after fall at [place] resulting in right IT fracture. Dr. Chi consulted-to the operating room today for ORIF. 08/12/17 Continue Lovenox 40 mg subcutaneous daily for 30 days postop for DVT prevention (through Sep 10) PT/OT for mobilization Continue pain control as needed Blood pressures and labs are stable When stable, plan is to discharge back to as [facility]
[2017-08-13] MEDS: SENNA + DOCUSATE TABLET PO SCH ×2 (09:49→20:29)
[2017-08-13] MEDS: ACETAMINOPHEN 500 MG TABLET PO SCH ×2 (09:49→20:29)
[2017-08-13] MEDS: POLYETHYL GLYCOL 3350 17gm PACKET PO SCH (09:51)
[2017-08-13] MEDS: NS 1,000 ML IV SCH (10:41)
--- NOTE | 2017-08-13 11:33 | Progress Note ---
<Marline Dwyer - Last Filed: 08/13/17 11:30> Subjective: Patient was sleeping in the chair when I saw him. He did wake up briefly when I came in the room, but fell back asleep. Reviewed nurse's notes and PT/OT notes. Patient is very unsafe was transferred. PT has recommended using the sit to stand left for safety. Patient has been eating well. IV fluids were discontinued this morning. Objective Vital signs: Temperature 98.4 F 08/13/17 07:00 Pulse Rate 67 08/13/17 10:00 Respiratory Rate 20 08/13/17 07:00 Blood Pressure 141/84 H 08/13/17 07:00 Pulse Oximetry 92 08/13/17 07:00 Height/Weight/BMI: Height 1.83 m Weight 90.2 kg Body Mass Index 25.6 - Constitutional Present: no acute distress, well nourished, well developed - Routine Respiratory Exam Present: CTA bilaterally. Absent: wheezes - Routine Cardiovascular Exam Present: RRR, S1, S2. Absent: murmur - Routine Abdominal Exam Present: soft, normoactive bowel sounds, non distended. Absent: tenderness - Routine Extremities Exam Present: normal capillary refill Comments: Edema to the right lower extremity is improving. Trace edema on the left - Routine Skin Exam Present: dry, warm - Routine Neurological Exam Absent: alert (sleeping during visit) - Routine Lymphatic Exam Lymphatic: Absent: adenopathy - Routine Psychiatric Exam Present: unable to assess Results - Labs CBC & Chem 7: 08/13/17 04:34 08/13/17 04:34 Assessment and Plan (1) Intertrochanteric fracture of right hip Current visit: Yes Status: Acute (2) Dementia Current visit: Yes Status: Acute (3) Hypertension Problem details: With orthostasis Current visit: Yes Status: Acute Assessment and Plan: Assessment: Right IT fracture - s/p ORIF with IM nail by Dr. Chi on 08/11/17 hypokalemia Dementia, mild Mild blood loss anemia Hypertension Orthostatic hypotension History CVA with residual right-sided weakness BPH Hyperlipidemia Hypothyroidism Questionable history of heart disease-no further information PLAN Continue to work with therapy. Pt may be a candidate for IRU vs SNU at [place]. Potassium is 3.3. 20 mEq potassium given this morning with another dose to be given at supper. Repeat BMP in a.m. Repeat CBC in a.m. to follow mild blood loss anemia. Hospital Course Summary Disclaimer: The visit summary below is not to be considered part of the above Progress Note. Hospital Course: Right IT fracture - s/p ORIF with IM nail by Dr. Chi on 08/11/17 Dementia, mild Mild blood loss anemia Hypertension Orthostatic hypotension History CVA with residual right-sided weakness Hypokalemia BPH Hyperlipidemia Hypothyroidism Questionable history of heart disease-no further information 08/11/17 - Hospital admission Case discussed with Dr. Chi-ORIF scheduled for later this morning. Potassium replacement initiated. Blood pressure control suboptimal at present but may be due to pain and history orthostasis and chronic treatment with Florinef will require modification of standing blood pressures primarily. Stable to proceed to the operating room. Discussed with patient's DPOA/daughter. 08/11/17 -ortho Admitted after fall at [place] resulting in right IT fracture. Dr. Chi consulted-to the operating room today for ORIF. 08/12/17 Continue Lovenox 40 mg subcutaneous daily for 30 days postop for DVT prevention (through Sep 10) PT/OT for mobilization Continue pain control as needed Blood pressures and labs are stable When stable, plan is to discharge back to as [place] 08/13/17 Continue to work with therapy. Pt may be a candidate for IRU vs SNU at [place]. Potassium is 3.3. 20 mEq potassium given this morning with another dose to be given at supper. Repeat BMP in a.m. Repeat CBC in a.m. to follow mild blood loss anemia. <Tova Cantu - Last Filed: 08/13/17 16:40> Objective Vital signs: Temperature 97.1 F 08/13/17 16:00 Pulse Rate 77 08/13/17 16:00 Respiratory Rate 20 08/13/17 16:00 Blood Pressure 176/89 H 08/13/17 16:00 Pulse Oximetry 91 08/13/17 16:05 Height/Weight/BMI: Height 1.83 m Weight 90.2 kg Body Mass Index 25.6 Results - Labs CBC & Chem 7: 08/13/17 04:34 08/13/17 04:34 Assessment and Plan (1) Intertrochanteric fracture of right hip Current visit: Yes Status: Acute (2) Dementia Current visit: Yes Status: Acute (3) Hypertension Problem details: With orthostasis Current visit: Yes Status: Acute Assessment and Plan: 08/13/2017-I reviewed this chart, the patient history, and the SYSTEM PLANNING ENGINEER's/PA's documented findings as above. We discussed and formulated the assessment and plan as above with the additions below.-Dr. Cantu The patient was seen in his room this afternoon. He only complains of hip pain. He denies any chest pain or abdominal pain. He states his appetite is poor. He had a moderate sized bowel movement today. He had frequent PVCs this morning with therapy but now is only having occasional PVCs. On exam he is alert and in no acute distress. He is pleasant. Chest is clear to auscultation anteriorly. He is back on 1 L of oxygen. Cardiovascular reveals a regular rate and rhythm with an occasional ectopic beat. Abdomen is soft, moderately distended, nontender, hypoactive bowel sounds. Extremities reveal trace edema on the left and +1 edema on the right. Lab today reveals a hemoglobin of 10.9 down from 11.4 and 13.5 Basic metabolic profile today shows potassium of 3.3, BUN 22, creatinine 0.7 Plan Regarding frequent PVCs, magnesium was checked today and was normal at 2.1. We' ll replace potassium orally and continue to monitor on telemetry. Patient appears to be asymptomatic at this time. Regarding abdominal distention, will obtain a KUB. Otherwise, agree with assessment and plan as above. Discussed care plan with the patient's nurse. Hospital Course Summary Disclaimer: The visit summary below is not to be considered part of the above Progress Note.
[2017-08-13] MEDS: BISACODYL 10 MG SUPPOSITORY RECTALLY SCH ×2 (20:29→20:35)
[2017-08-13] MEDS: DONEPEZIL 5 MG TABLET PO SCH (20:29)
[2017-08-13] MEDS: ENOXAPARIN 40 MG/0.4 ML INJECTION SQ SCH (20:30)
[2017-08-14] MEDS: NOZIN NASAL SWAB NAS SCH ×5 (02:36→22:09)
[2017-08-14] MEDS: HYDROCODONE/APAP 5mg/325mg TABLET PO PRN (06:07)
[2017-08-14] MEDS: LEVOTHYROXINE 100 MCG TABLET PO SCH (06:08)
--- NOTE | 2017-08-14 08:29 | XRay Report ---
Indication: abdominal distention PROCEDURE: XR KUB w upright: Encounter: Initial Comparison: January 04, 2012 Findings: The visualized lung bases are clear. There is no free air on the upright view. The bowel gas pattern is nonobstructive and nonspecific. Kimper mild distention of small and large bowel to the level of the rectum. Postoperative change in the right hip. Impression: Ileus pattern There is a preliminary report by virtual radiologic. .
[2017-08-14] MEDS: POLYETHYL GLYCOL 3350 17gm PACKET PO SCH (08:54)
[2017-08-14] MEDS: ACETAMINOPHEN 500 MG TABLET PO SCH ×3 (08:56→20:48)
[2017-08-14] MEDS: SALINE FLUSH 10ml SYRINGE IVF PRN ×2 (08:57→18:07)
[2017-08-14] MEDS: BISACODYL 10 MG SUPPOSITORY RECTALLY SCH ×2 (09:03→15:01)
[2017-08-14] MEDS: SENNA + DOCUSATE TABLET PO SCH ×2 (09:06→20:49)
--- NOTE | 2017-08-14 09:49 | Orthopedic Progress Note ---
Date: Subjective/Severity of Illness: Parrish had no complaints, one BM is recorded on 08/13/17. Dressings are intact, with minimal serosanguenous drainage K+ is 3.4. Hgb 11.2 , KUB show air distended bowl and possible ileus. His hip is feeling better. Orthopedic Objective PO Vital signs: Temperature 96 F L 08/14/17 07:43 Pulse Rate 65 08/14/17 07:43 Respiratory Rate 20 08/14/17 07:43 Blood Pressure 153/86 H 08/14/17 07:43 Pulse Oximetry 91 08/14/17 07:43 Height and Weight: Height 6 ft Weight 198 lb 13.711 oz Body Mass Index 25.6 - Constitutional General Appearance: Present: alert, orientated x2, other (Sleeping.) - Respiratory Exam Present: non-labored - Cardiovascular Exam Present: pedal pulses intact Capillary Refill: < 2-3 Seconds - Abdominal Exam Present: soft, tenderness - Extremities Exam Extremities: Present: no edema, pulses intact. Absent: calf tenderness - Hip Exam Hip Exam: Present: alignment normal, decreased ROM (felxion), decreased ROM ( rotation) - Surgical Site Incision: dressing intact, no drainage - Integumentary Exam Present: pink, warm, dry - Lymphatic Lymphatic: Absent: adenopathy - Neurological Exam Present: no deficits - Psychiatric Exam Present: alert - Labs Result Diagrams: 08/14/17 04:28 08/14/17 04:28 Abnormal lab results 08/14/17 08/14/17 Range/Units 04:28 04:28 RBC 3.46 L (4.50-5.90) M/MM3 Hgb 11.2 L (13.5-17.5) GM/DL Hct 33.8 L (41-53) % Neut % (Auto) 66.2 H (33-66) % Lymph % (Auto) 16.8 L (23-45) % [place] % (Auto) 14.6 H (0-9.0) % [place] # (Auto) 1.3 H (0-0.8) T/MM3 Potassium 3.4 L (3.6-5) MEQ/L Chloride 111 H (98-107) MEQ/L BUN 21.0 H (9-20) MG/DL Creatinine 0.7 L (0.8-1.5) MG/DL BUN/Creatinine Ratio 30 H (6-26) RATIO H & H 08/11/17 08/12/17 08/13/17 Range/Units 05:02 03:55 04:34 Hgb 13.5 11.4 L D 10.9 L (13.5-17.5) GM/DL Hct 40.1 L 35.2 L D 33.1 L (41-53) % 08/14/17 Range/Units 04:28 Hgb 11.2 L (13.5-17.5) GM/DL Hct 33.8 L (41-53) % Orthopedic Assessment and Plan (1) Intertrochanteric fracture of right hip Status: Acute Qualifiers: Encounter type: initial encounter Fracture type: closed Fracture alignment: nondisplaced Qualified Code(s): S72.144A - Nondisplaced intertrochanteric fracture of right femur, initial encounter for closed fracture Assessment and Plan: S/P right hip IM nail for IT fracture by Dr. Chi on 08/11/17. Lovenox 40 mg SQ Q Day for 30 days post op for DVT prevention PT/OT for mobilization continue pain control discharge plan is back to [place] eventually. - Anticoagulation Therapy Anticoagulation: Lovenox 40 mg SQ Daily x 30 days from day of surgery Hospital Course Summary Disclaimer: The visit summary below is not to be considered part of the above Progress Note. Hospital Course: Right IT fracture - s/p ORIF with IM nail by Dr. Chi on 08/11/17 Dementia, mild Mild blood loss anemia Hypertension Orthostatic hypotension History CVA with residual right-sided weakness Hypokalemia BPH Hyperlipidemia Hypothyroidism Questionable history of heart disease-no further information 08/11/17 - Hospital admission Case discussed with Dr. Chi-ORIF scheduled for later this morning. Potassium replacement initiated. Blood pressure control suboptimal at present but may be due to pain and history orthostasis and chronic treatment with Florinef will require modification of standing blood pressures primarily. Stable to proceed to the operating room. Discussed with patient's DPOA/daughter. 08/11/17 -ortho Admitted after fall at [place] resulting in right IT fracture. Dr. Chi consulted-to the operating room today for ORIF. 08/12/17 Continue Lovenox 40 mg subcutaneous daily for 30 days postop for DVT prevention (through Sep 10) PT/OT for mobilization Continue pain control as needed Blood pressures and labs are stable When stable, plan is to discharge back to as [place] 08/13/17 Continue to work with therapy. Pt may be a candidate for IRU vs SNU at [place]. Potassium is 3.3. 20 mEq potassium given this morning with another dose to be given at supper. Repeat BMP in a.m. Repeat CBC in a.m. to follow mild blood loss anemia.
--- NOTE | 2017-08-14 11:20 | Progress Note ---
<Karlie Conner - Last Filed: 08/14/17 11:15> Subjective: Mr. Ring is seen today in follow up for his post-op ileus and recent repair of his right hip fracture. He is seen while sleeping in his recliner and arouses easily with soft voice and gentle touch stimuli. He wakes with a large smile and reports that he is feeling great today. He denies any complains or concerns including no chest pain, shortness of breath, abdominal pain, nausea, vomiting or dysuria. No hip pain, numbness or tingling. He reports that is appetite is fair, which is unchanged since prior to admission. Prior records and nursing notes were reviewed. KUB obtained 08/13/17 revealed ileus pattern and he denies BM today, though it has been documented that he had a moderate stool today. Repeat labs today revealed persistent, improving anemia with hemoglobin at 11.2 and hypokalemia with potassium at 3.4. Overall, he appears to be making gains. Anticipate discharge in the near future to [facility] and would recommend half-way. Objective Vital signs: Temperature 96 F L 08/14/17 07:43 Pulse Rate 90 08/14/17 09:57 Respiratory Rate 20 08/14/17 07:43 Blood Pressure 153/86 H 08/14/17 07:43 Pulse Oximetry 91 08/14/17 07:43 Height/Weight/BMI: Height 6 ft Weight 198 lb 13.711 oz Body Mass Index 25.6 - Constitutional Present: no acute distress, well nourished, well developed, cooperative - Routine HEENT Exam Head: Present: normocephalic, atraumatic Eye: Present: PERRL. Absent: conjunctival icterus ENT: Present: mucous membranes moist - Routine Respiratory Exam Present: CTA bilaterally. Absent: stridor, wheezes, crackles - Routine Cardiovascular Exam Present: RRR, S1, S2 - Routine Abdominal Exam Present: soft, normoactive bowel sounds, non tender, distended (mild) - Routine Extremities Exam Present: edema (1+ on right, trace on left.), pulses intact Comments: SCDs in place; no calf tenderness; bandage to right hip is clean, dry and intact with ice pack in place. - Routine Back/Spine/Pelvis Exam Back/Spine: Present: full ROM, kyphosis - Routine Musculoskeletal Exam Musculoskeletal: Present: moving extremities well, limited range of motion ( right sided weakness as compared to left secondary to prior CVA.) - Routine Skin Exam Present: intact, dry, warm. Absent: jaundice Comments: afebrile. - Routine Neurological Exam Present: alert, moving all extremities, hearing grossly intact, normal speech orientated to person and place, not time. - Routine Lymphatic Exam Lymphatic: Absent: lymphedema - Routine Psychiatric Exam Present: normal affect, cooperative Results - Labs CBC & Chem 7: 08/14/17 04:28 08/14/17 04:28 Assessment and Plan (1) Intertrochanteric fracture of right hip Current visit: Yes Status: Acute 08/11/17 02:47 mechanical fall with intertroch fx. npo, from an operative perspective he is at moderate risk but his METS are acutallyat least 4 and he has no chest pain with activity. Will followup EKG pre op and if on b [place] taj need [place] pirro to surgery. His K is slighly low and need to be replaced prior to surgery. Othewise should be okay to go to surgery. (2) Dementia Current visit: Yes Status: Chronic 08/11/17 02:48 type unkown , appears to be on disease stabalizing meds. continue these meds afte rsurgery. currently is appropraite in his responses and his disease is probable mild to at most moderate in severity. (3) Hypertension Problem details: With orthostasis Current visit: Yes Status: Chronic 08/11/17 02:49 patient is hypertensive at this time. will tx with prn hydralzine iv and if on b [place] continue this pre op. (4) Status post hip surgery Current visit: Yes Status: Acute right hip IM nail for intertrochanteric fracture - Dr. Chi on 08/11/17. DVT Prophylaxis: SCD's Resuscitation Status: Full Code Assessment and Plan: Assessment Right IT fracture - s/p ORIF with IM nail by Dr. Chi on 08/11/17. Hypokalemia, acute. Mild blood loss anemia, acute. Dementia, mild, chronic. Hypertension, chronic. Orthostatic hypotension, chronic. History CVA with residual right-sided weakness, chronic. BPH, chronic. Hyperlipidemia, chronic. Hypothyroidism, chronic. Questionable history of heart disease-no further information Plan-08/14/17 ([place]ian) Overall, Mr. Ring appears to be making slow gains and denies any complaints or pain. Currently breathing easily on room air without signs of distress. Continue to encourage incentive spirometry for pulmonary toileting. Review of telemetry reveals normal sinus rhythm without noted PVCs. Labs today revealed improving post-op anemia with hemoglobin at 11.2 and hypokalemia with potassium at 3.4. Patient was given KCl 40 mEq po this AM. Would recommend continuing to monitor as outpatient. Will discuss initiation of KCl [address] Cantu. Renal function is stable with SCr 0.7 and BUN 21. KUB revealed ileus pattern. Nursing reports moderate stool today. Continue bowel motivation and encourage assisted ambulation as tolerated. Discussed care plan with the patient's nurse. Anticipate discharge to shelter at [facility] in the near future. - Time spent with patient Time with patient PN: 35 minutes Hospital Course Summary Disclaimer: The visit summary below is not to be considered part of the above Progress Note. Hospital Course: Right IT fracture - s/p ORIF with IM nail by Dr. Chi on 08/11/17 Dementia, mild Mild blood loss anemia Hypertension Orthostatic hypotension History CVA with residual right-sided weakness Hypokalemia BPH Hyperlipidemia Hypothyroidism Questionable history of heart disease-no further information 08/11/17 - Hospital admission Case discussed with Dr. Chi-ORIF scheduled for later this morning. Potassium replacement initiated. Blood pressure control suboptimal at present but may be due to pain and history orthostasis and chronic treatment with Florinef will require modification of standing blood pressures primarily. Stable to proceed to the operating room. Discussed with patient's DPOA/daughter. 08/11/17 -ortho Admitted after fall at [facility] resulting in right IT fracture. Dr. Chi consulted-to the operating room today for ORIF. 08/12/17 Continue Lovenox 40 mg subcutaneous daily for 30 days postop for DVT prevention (through Sep 10) PT/OT for mobilization Continue pain control as needed Blood pressures and labs are stable When stable, plan is to discharge back to as [facility] 08/13/17 Continue to work with therapy. Pt may be a candidate for IRU vs SNU at [facility]. Potassium is 3.3. 20 mEq potassium given this morning with another dose to be given at supper. Repeat BMP in a.m. Repeat CBC in a.m. to follow mild blood loss anemia. Plan-08/14/17 (Mirakian) Overall, Mr. Ring appears to be making slow gains and denies any complaints or pain. Currently breathing easily on room air without signs of distress. Continue to encourage incentive spirometry for pulmonary toileting. Review of telemetry reveals normal sinus rhythm without noted PVCs. Labs today revealed improving post-op anemia with hemoglobin at 11.2 and hypokalemia with potassium at 3.4. Patient was given KCl 40 mEq po this AM. Would recommend continuing to monitor as outpatient. Will discuss initiation of KCl [address] Cantu. Renal function is stable with SCr 0.7 and BUN 21. KUB revealed ileus pattern. Nursing reports moderate stool today. Continue bowel motivation and encourage assisted ambulation as tolerated. Discussed care plan with the patient's nurse. Anticipate discharge to shelter at [facility] in the near future <Tova Cantu - Last Filed: 08/14/17 22:17> Objective Vital signs: Temperature 96 F L 08/14/17 07:43 Pulse Rate 77 08/14/17 18:03 Respiratory Rate 20 08/14/17 16:15 Blood Pressure 149/84 H 08/14/17 16:15 Pulse Oximetry 90 08/14/17 16:15 Height/Weight/BMI: Height 1.83 m Weight 86.2 kg Body Mass Index 25.6 Results - Labs CBC & Chem 7: 08/14/17 04:28 08/14/17 04:28 Assessment and Plan (1) Intertrochanteric fracture of right hip Current visit: Yes Status: Acute (2) Dementia Current visit: Yes Status: Chronic (3) Hypertension Problem details: With orthostasis Current visit: Yes Status: Chronic (4) Status post hip surgery Current visit: Yes Status: Acute Assessment and Plan: 08/14/2017-I reviewed this chart, the patient history, and the ELECTRONIC DATA INTERCHANGE SPECIALIST's/PA's documented findings as above. We discussed and formulated the assessment and plan as above with the additions below.-Dr. Cantu The patient was seen earlier today. He denied any pain. He states he doesn't have much of an appetite. His abdomen is still a little distended. He did have an overnight oximetry on room air that showed he does not require nocturnal oxygen. He denies any chest pains or palpitations. He does have elevation of blood pressure. His Norvasc and lisinopril that he was taking at home have not been restarted. On exam he is alert and in no acute distress. Chest is clear to auscultation. Cardiovascular reveals a regular rate and rhythm with occasional PVCs. Telemetry shows occasional PVCs. Abdomen is mildly distended and tympanitic. Bowel sounds are present. Extremities reveal trace edema. KUB shows an ileus pattern. I did view the films and agree with radiology report. Impression and plan Re: Mild Ileus, recommend Dulcolax suppositories. The patient had refused them last night and this morning. He is now willing to try it. Regarding hypertension, resume Norvasc and lisinopril. Also resumed was finasteride, vitamin B 12, lactobacillus, Namenda, and oxybutynin IR. Likely discharge soon. Discussed with case management and the patient's nurse. Hospital Course Summary Disclaimer: The visit summary below is not to be considered part of the above Progress Note.
[2017-08-14] MEDS ORDERED: ASPIRIN 325 MG TABLET PO SCH (12:30)
[2017-08-14] MEDS ORDERED: CYANOCOBALAMIN (B-12) 1,000mcg/ml INJECTION IM SCH (12:30)
[2017-08-14] MEDS: FINASTERIDE 5 MG TABLET PO SCH (14:03)
[2017-08-14] MEDS: AMLODIPINE 5 MG TABLET PO SCH (14:05)
[2017-08-14] MEDS: LACTOBACILLUS (15B cfu) CAPSULE PO SCH (14:05)
[2017-08-14] MEDS: FLUDROCORTISONE 0.1 MG TABLET PO SCH (14:05)
[2017-08-14] MEDS: LISINOPRIL 10 MG TABLET PO SCH (14:05)
[2017-08-14] MEDS: MEMANTINE 10 MG TABLET PO SCH (20:49)
[2017-08-14] MEDS: ENOXAPARIN 40 MG/0.4 ML INJECTION SQ SCH (20:49)
[2017-08-14] MEDS: DONEPEZIL 5 MG TABLET PO SCH (20:49)
[2017-08-14] MEDS ORDERED: SIMVASTATIN 20 MG TABLET PO SCH (21:00)
[2017-08-14] MEDS ORDERED: SERTRALINE 25 MG TABLET PO SCH (21:00)
[2017-08-15] MEDS: LEVOTHYROXINE 100 MCG TABLET PO SCH (06:01)
[2017-08-15] MEDS: NOZIN NASAL SWAB NAS SCH (06:01)
[2017-08-15 08:07] VITALS: RESP 16; TEMP 96.2
[2017-08-15] MEDS: FLUDROCORTISONE 0.1 MG TABLET PO SCH (08:16)
[2017-08-15] MEDS: MEMANTINE 10 MG TABLET PO SCH (08:16)
[2017-08-15] MEDS: LACTOBACILLUS (15B cfu) CAPSULE PO SCH (08:16)
[2017-08-15] MEDS: ACETAMINOPHEN 500 MG TABLET PO SCH (08:17)
[2017-08-15] MEDS: FINASTERIDE 5 MG TABLET PO SCH (08:17)
[2017-08-15] MEDS: LISINOPRIL 10 MG TABLET PO SCH (08:17)
[2017-08-15] MEDS: AMLODIPINE 5 MG TABLET PO SCH (08:18)
[2017-08-15] MEDS: SENNA + DOCUSATE TABLET PO SCH (08:18)
[2017-08-15] MEDS: POLYETHYL GLYCOL 3350 17gm PACKET PO SCH (08:18)
[2017-08-15] MEDS ORDERED: ASPIRIN 81 MG CHEWABLE TABLET PO SCH (09:00)
[2017-08-15] MEDS ORDERED: HYDROCODONE/APAP 5mg/325mg TABLET PO PRN ×2 (10:04→15:00)
--- NOTE | 2017-08-15 12:20 | Discharge Instructions ---
Discharge Plan - Med Rec/Dispo Referrals/Follow Up: Arlen Jennings MD [Family Provider] - (1 week) Alejandro Fay PA [Physician Glass Blowing Lathe Operator] - (2-3 weeks) Alan Instructions: [facility] Postop Instructions Additional Instructions: Keep incision dry for 2 weeks. Change dressings as needed. Weight bearing as tolerated. Continue Lovenox daily through Sep 10. Physical Therapy/Occupational Therapy to work with patient to improve functional abilities. Prescriptions: New Hydrocodone/APAP 5/325 [[place] 5/325] 1 tab PO Q6H PRN #50 tablet PRN Reason: hip pain Senna + Docusate [Senna Plus Tablet] 2 tab PO BID tablet Acetaminophen [Tylenol] 650 mg PO QID tablet Enoxaparin Sodium [Lovenox] 40 mg SQ Q24H syringe Milk of Magnesia [Mom] 30 ml PO DAILY PRN udc PRN Reason: Constipation Continue Finasteride 5 mg PO DAILY #0 L. Acidophilus/Lactobac Spor [Acidophilus X-Str Captab] 1 tab PO DAILY Cyanocobalamin (B-12) [Vit. B-12] 1,000 mcg IM 1 MONTH Fludrocortisone [Florinef] 0.1 mg PO DAILY Donepezil HCl [Aricept] 5 mg PO HS #0 tab loperamide 2 mg tablet 2 mg PO DAILY PRN tab PRN Reason: Diarrhea oxybutynin chloride 5 mg tablet 5 mg PO DAILY tab Levothyroxine Sodium 100 mcg PO DAILY #0 lutein 6 mg capsule 6 mg PO DAILY cap aspirin 325 mg tablet 325 mg PO DAILY tab Norvasc (amlodipine) 5 mg tablet 5 mg PO DAILY tab Zoloft (sertraline) 25 mg tablet 25 mg PO HS tab Zocor (simvastatin) 20 mg tablet 20 mg PO HS Namenda (memantine) 10 mg tablet 10 mg PO BID #60 tab lisinopril 10 mg tablet 10 mg PO DAILY tab Discontinued Probiotic Formula 1 cap PO DAILY Mapap Extra Strength 500 mg tablet 1,000 mg PO BID tab Discharge Instructions/Outpatient Orders: Final Provider Discharge Instructions Location: Determined By Patient - Disposition 03 To [facility] Not [facility] ([facility])
[2017-08-15 12:30] VITALS: O2SAT 96
--- NOTE | 2017-08-15 12:56 | Extended Care Facility Orders ---
<Marline Dwyer - Last Filed: 08/15/17 12:51> Admission Orders Admit to:: Jail ([place]) Allergies/Adverse Reactions: Allergies No Known Allergies Allergy (Verified 08/11/17 02:45) Admitting Diagnosis: fractured right hip Admitting Physician: Tova Cantu MD Attending Physician: Tova Cantu MD Code Status: Full Code Anticiapted Length of Stay: 30 days or less Rehab Potential: fair Rehab Prognosis: fair Diet: Regular Diet [DIET] Wound/Incision Care: Keep wound dry for 2 weeks. Change dressing as needed. May use Facility Protocol or Standing Orders: Yes May have flu vaccine: Yes Evaluations/Treatment: PT, OT Jail Certification: I certify that SNF services are required to be given on an Inpatient basis because of the patients need for assisted care on a continuing basis for the condition(s) for which he/she received inpatient hospital services prior to his/her transfer to the SNF. SNF inpatient care is necessary for the following reasons Indication for Jail: Wound Care/Assessment, Med Admininistration, Postop Assessment Care, Other (daily Lovenox injection through September 10) - Additional Information Resident is Aware of Diagnosis: Yes Laboratory/Radiology: Repeat CBC and BMP on 08/19/17 and send results to Dr. Arlen Jennings. Referrals: Arlen Jennings MD [Family Provider] - (1 week) Alejandro Fay PA [Physician Shirt Line Operator] - (2-3 weeks) Additional Orders: PT/OT eval and treat. <Tova Cantu - Last Filed: 08/15/17 13:18> Admission Orders Admitting Diagnosis: fractured right hip Admitting Physician: Tova Cantu MD Attending Physician: Tova Cantu MD Code Status: Full Code Diet: 08/12/17 Breakfast Regular Diet [DIET] Diet Modifications: Jail Certification: I certify that SNF services are required to be given on an Inpatient basis because of the patients need for assisted care on a continuing basis for the condition(s) for which he/she received inpatient hospital services prior to his/her transfer to the SNF. SNF inpatient care is necessary for the following reasons
[2017-08-15] MEDS ORDERED: ACETAMINOPHEN 325 MG TABLET PO SCH (13:00)
[2017-08-15 16:06] VITALS: BP 147/69; PULSE 89
--- NOTE | 2017-08-15 18:39 | Discharge Summary ---
<Marline Dwyer - Last Filed: 08/15/17 18:48> Discharge Information Date of admission: 08/11/17 01:04 Anticipated date of discharge: 08/15/17 Attending Physician: Tova Cantu MD Primary care physician: Arlen Jennings MD - Discharge Diagnosis (1) Intertrochanteric fracture of right hip Status: Acute (2) Dementia Status: Chronic (3) Hypertension Status: Chronic (4) Status post hip surgery Status: Acute Discharge Diagnosis: Right IT fracture - s/p ORIF with IM nail by Dr. Chi on 08/11/17. Hypokalemia, acute. Mild blood loss anemia, acute. Dementia, mild, chronic. Hypertension, chronic. Orthostatic hypotension, chronic. History CVA with residual right-sided weakness, chronic. BPH, chronic. Hyperlipidemia, chronic. Hypothyroidism, chronic. Questionable history of heart disease-no further information - Procedures Procedures: 08/11/17 PROCEDURE Right intertrochanteric hip fracture intramedullary nailing. SURGEON Ihsan Chi MD - Laboratory Labs: 08/15/17 04:44 08/15/17 04:44 Laboratory Tests 08/11/17 08/11/17 08/12/17 01:04 05:02 03:55 Hgb 14.1 13.5 11.4 L D 08/13/17 08/14/17 08/15/17 04:34 04:28 04:44 Hgb 10.9 L 11.2 L 10.0 L Laboratory Tests 08/11/17 08/13/17 08/14/17 01:04 04:34 04:28 Potassium 3.5 L 3.3 L 3.4 L 08/15/17 04:44 Potassium 3.5 L Laboratory Tests 03/26/17 06:10 Triglycerides 72 Cholesterol 105 L LDL Cholesterol, Calc 51.6 L VLDL Cholesterol 14.4 HDL Direct 39 L Cholesterol/HDL Ratio 2.7 Laboratory Tests 05/15/16 12/04/16 05:23 05:44 Vitamin B12 324 TSH 3.56 - Radiology Radiology: Type of Exam(s): XR KUB w upright Reason for Exam(s): abdominal distention Impression: Ileus pattern Chest x-ray IMPRESSION: No pneumonia or congestive failure. Thoracic aortic ectasia and possible aneurysm. History of Present Illness HPI: History of present illness on admission: This is a 87 y/o male with mild dementia who lives at a local detention. The patient tripped tonight and fell landing on his right hip. The patient had immediate pain. EMS transport demonstrated an intertrochanteric right femur fracture. The patient is very mobile typically and would be an excellent candidate to have repaired Objective Vital signs: Temperature 96.2 F L 08/15/17 08:00 Pulse Rate 89 08/15/17 13:52 Respiratory Rate 16 08/15/17 12:00 Blood Pressure 147/69 H 08/15/17 13:52 Pulse Oximetry 96 08/15/17 13:52 Height/Weight/BMI: Height 1.83 m Weight 88.7 kg Body Mass Index 25.6 - Constitutional Present: no acute distress, well nourished, well developed - Routine Respiratory Exam Present: CTA bilaterally. Absent: wheezes - Routine Cardiovascular Exam Present: RRR, S1, S2. Absent: murmur - Routine Abdominal Exam Present: soft, normoactive bowel sounds, non distended. Absent: tenderness - Routine Extremities Exam Present: edema (trace bilateral), normal capillary refill - Routine Skin Exam Present: dry, warm - Routine Neurological Exam Present: alert, normal tone - Routine Lymphatic Exam Lymphatic: Absent: adenopathy - Routine Psychiatric Exam Present: normal affect, cooperative Hospital Course This is a general summary of the patient's hospital course. For more details refer to the complete medical record. Hospital course: 08/11/17 - Hospital admission Case discussed with Dr. Chi-CARMENZAF scheduled for later this morning. Potassium replacement initiated. Blood pressure control suboptimal at present but may be due to pain and history orthostasis and chronic treatment with Florinef will require modification of standing blood pressures primarily. Stable to proceed to the operating room. Discussed with patient's DPOA/daughter. 08/12/17 Continue Lovenox 40 mg subcutaneous daily for 30 days postop for DVT prevention (through Sep 10) PT/OT for mobilization Continue pain control as needed Blood pressures and labs are stable 08/13/17 Continue to work with therapy. Potassium is 3.3. 20 mEq potassium given this morning with another dose to be given at supper. Repeat BMP in a.m. Repeat CBC in a.m. to follow mild blood loss anemia. 08/14/17 Overall, Mr. Ring appears to be making slow gains and denies any complaints or pain. Currently breathing easily on room air without signs of distress. Continue to encourage incentive spirometry for pulmonary toileting. Review of telemetry reveals normal sinus rhythm without noted PVCs. Labs today revealed improving post-op anemia with hemoglobin at 11.2 and hypokalemia with potassium at 3.4. Patient was given KCl 40 mEq po this AM. Would recommend continuing to monitor as outpatient. Renal function is stable with SCr 0.7 and BUN 21. KUB revealed ileus pattern. Nursing reports moderate stool today. Continue bowel motivation and encourage assisted ambulation as tolerated. 08/15/17 Patient stable to be discharged today. Signs of ileus have resolved. He is eating well. He has had a good bowel movement. His hemoglobin is stable at 10 compared to 13.5 preop. This will need to be monitored on an outpatient basis. His potassium has trended up over the last several days to 3.5 on discharge. He did have some potassium supplementation while he was inpatient. He was not discharged on a potassium supplement. He is on lisinopril 10 mg daily. Potassium levels will need to be followed up on an outpatient basis as well. He should continue daily Lovenox injections 40 mg subcutaneous through September 10. He is being discharged to assisted at [facility] where he will continue PT and OT. Time spent with patient: discharge greater than 30 minutes Discharge Plan - Med Rec/Dispo Referrals/Follow Up: Arlen Jennings MD [Family Provider] - (1 week) Alejandro Fay PA [Physician Tape Edge Machine Operator] - (2-3 weeks) Alan Instructions: [facility] Postop Instructions Additional Instructions: Keep incision dry for 2 weeks. Change dressings as needed. Weight bearing as tolerated. Continue Lovenox daily through Sep 10. Physical Therapy/Occupational Therapy to work with patient to improve functional abilities. Prescriptions: New Hydrocodone/APAP 5/325 [[place] 5/325] 1 tab PO Q6H PRN #50 tablet PRN Reason: hip pain Senna + Docusate [Senna Plus Tablet] 2 tab PO BID tablet Acetaminophen [Tylenol] 650 mg PO QID tablet Enoxaparin Sodium [Lovenox] 40 mg SQ Q24H syringe Milk of Magnesia [Mom] 30 ml PO DAILY PRN udc PRN Reason: Constipation Continue Finasteride 5 mg PO DAILY #0 L. Acidophilus/Lactobac Spor [Acidophilus X-Str Captab] 1 tab PO DAILY Cyanocobalamin (B-12) [Vit. B-12] 1,000 mcg IM 1 MONTH Fludrocortisone [Florinef] 0.1 mg PO DAILY Donepezil HCl [Aricept] 5 mg PO HS #0 tab loperamide 2 mg tablet 2 mg PO DAILY PRN tab PRN Reason: Diarrhea oxybutynin chloride 5 mg tablet 5 mg PO DAILY tab Levothyroxine Sodium 100 mcg PO DAILY #0 lutein 6 mg capsule 6 mg PO DAILY cap aspirin 325 mg tablet 325 mg PO DAILY tab Norvasc (amlodipine) 5 mg tablet 5 mg PO DAILY tab Zoloft (sertraline) 25 mg tablet 25 mg PO HS tab Zocor (simvastatin) 20 mg tablet 20 mg PO HS Namenda (memantine) 10 mg tablet 10 mg PO BID #60 tab lisinopril 10 mg tablet 10 mg PO DAILY tab Discontinued Probiotic Formula 1 cap PO DAILY Mapap Extra Strength 500 mg tablet 1,000 mg PO BID tab Discharge Instructions/Outpatient Orders: Final Provider Discharge Instructions Location: Determined By Patient - Disposition 03 To [facility] Not [facility] [place] ([place]NF) <Tova Cantu - Last Filed: 08/15/17 21:37> Discharge Information Date of admission: 08/11/17 01:04 Attending Physician: Tova Cantu MD Primary care physician: Arlen Jennings MD Consults: 08/13/17 IRU Screening [Inpatient Rehab Screening] [CONS] Routine Screen requested by:: Case Management 08/13/17 15:23 Physician Consult [CONS] Routine Consulting Provider: David Green Reason For Exam: [facility] Ordering Provider has Notified Frame Stylist: Yes - Discharge Diagnosis (1) Intertrochanteric fracture of right hip Status: Acute (2) Dementia Status: Chronic (3) Hypertension Status: Chronic (4) Status post hip surgery Status: Acute - Laboratory Labs: 08/15/17 04:44 08/15/17 04:44 Objective Vital signs: Temperature 96.2 F L 08/15/17 08:00 Pulse Rate 89 08/15/17 13:52 Respiratory Rate 16 08/15/17 12:00 Blood Pressure 147/69 H 08/15/17 13:52 Pulse Oximetry 96 08/15/17 13:52 Height/Weight/BMI: Height 1.83 m Weight 88.7 kg Body Mass Index 25.6 Hospital Course This is a general summary of the patient's hospital course. For more details refer to the complete medical record. Hospital course: 08/15/2017-I reviewed this chart, the patient history, and the SIGNAL WORKER HELPER's/PA's documented findings as above. We discussed and formulated the assessment and plan as above with the additions below.-Dr. Cantu The patient stated he was feeling well today. He was eating and drinking without difficulties. He denied any abdominal pain. He was having bowel movements. Blood pressure was improved with restarting his usual medication. On exam he was alert and in no acute distress. Chest is clear to auscultation. Cardiac vascular reveals a regular rate and rhythm. Abdomen is soft, mildly distended with positive bowel sounds. Extremities are free of edema. It was felt that the patient was stable for dismissal back to his detention. I did call and talk with his primary care physician, Dr. Jennings and discussed hospital findings and discharge plans with her. Greater than 35 minutes of time was spent on dismissal day seeing and evaluating the patient in determining care plan.
== END 2017-08-15 15:43 | DRG 481 ==
LOC: ED 23:33 → SUATTDRO 08-11 01:04 → SRG 08-11 01:04
PROVIDERS: ADMIT Emergency Medicine; ATTEND Internal Medicine

== ENCOUNTER 2018-06-27 01:37 | Inpatient (IN) ==
--- NOTE | 2018-06-27 01:51 | Emergency Department Report ---
General Adult HPI - General Chief complaint: Fever Stated complaint: Fever 101.4 Time Seen by Provider: 06/27/18 01:49 Source: patient, EMS Mode of arrival: EMS Limitations: other (dementia) - History of Present Illness HPI narrative: 88 M presents to the ED with the chief complaint of a cough and fever. Patient was noted to have 2 episodes of emesis following coughing fits yesterday. He denies any pain or discomfort. Patient was also noted to have a fever of 101F at the senior care. Patient is at baseline mental status. No other complaints or associated symptoms. He was at his care facility when the symptoms began. Symptoms have been persistent in nature since onset. Patient noted to be 86% on room air prior to arrival to the emergency department and does not use home oxygen. - Related Data Home Medications Medication Instructions Recorded Confirmed Finasteride 5 mg PO DAILY #0 01/04/12 06/27/18 Donepezil HCl [Aricept] 5 mg PO HS #0 tab 12/20/13 06/27/18 oxybutynin chloride 5 mg tablet 5 mg PO DAILY tab 04/02/17 06/27/18 Norvasc (amlodipine) 5 mg tablet 5 mg PO DAILY tab 04/22/17 06/27/18 lutein 6 mg capsule 6 mg PO DAILY cap 04/22/17 06/27/18 lisinopril 10 mg tablet 10 mg PO DAILY tab 08/07/17 06/27/18 Cyanocobalamin (B-12) [Vit. B-12] 1,000 mcg IM 1 MONTH 08/11/17 06/27/18 Klor-Con M20 (potassium chloride 20 meq PO DAILY 31 Days 01/29/18 06/27/18 ER) 20 mEq tablet,(part/cryst) Vitamin D3 (cholecalciferol) 1,000 1,000 unit PO DAILY cap 01/29/18 06/27/18 unit capsule Zoloft (sertraline) 25 mg tablet 50 mg PO HS tab 01/29/18 06/27/18 aspirin 81 mg tablet,delayed 81 mg PO DAILY 01/29/18 06/27/18 release levothyroxine 112 mcg tablet 112 mcg PO DAILY 31 Days #31 tab 01/29/18 06/27/18 polyethylene glycol 3350 17 gram 17 g PO DAILY PRN 01/29/18 06/27/18 oral powder packet Previous Rx's Medication Instructions Recorded Namenda (memantine) 10 mg tablet 10 mg PO BID #60 tab 04/22/17 Acetaminophen [Tylenol] 650 mg PO QID tab 08/15/17 Hydrocodone/APAP 5/325 [Thompson 1 tab PO Q6H PRN #50 tab 08/15/17 5/325] Senna + Docusate [Senna Plus 2 tab PO BID tab 08/15/17 Tablet] fludrocortisone 0.1 mg tablet 0.1 mg PO DAILY #30 tab 04/28/18 Allergies Allergy/AdvReac Type Severity Reaction Status Date / Time No Known Allergies Allergy Verified 06/27/18 01:53 Review of Systems Constitutional: Reports: fever. Denies: weakness Eyes: Denies: eye pain, eye discharge ENT: Denies: ear pain, throat pain Cardiovascular: Denies: chest pain, palpitations Respiratory: Reports: cough. Denies: dyspnea, wheezes Gastrointestinal: Reports: nausea, vomiting. Denies: abdominal pain, diarrhea Genitourinary: Denies: urgency, dysuria Musculoskeletal: Denies: back pain, arthralgia Integumentary: Denies: erythema, rash Neurological: Denies: headache, numbness, paresthesias Psychiatric: Denies: anxiety, depression Endocrine: Denies: polydipsia, polyuria Hematological/Lymphatic: Denies: easy bruising, lymphadenopathy Allergic/Immunologic: Denies: facial swelling, urticaria PFSH Patient Stated Medical History Cerebrovascular Accident Yes Dementia Yes Transient Ischemic Attacks ( Yes TIA) Dental Problems Yes: Dentures Other HEENT Yes: WEARS UPPER AND LOWER DENTURES-LEFT AT HAZLEHURST Angina Denies Coronary Artery Disease Yes Hypertension Yes Asthma No Bronchitis No Chronic Obstructive Pulmonary No Disease (COPD) Pneumonia No Pulmonary Edema No Pulmonary Embolism No Sleep Apnea No Tuberculosis No Other Respiratory No Gastroesophageal Reflux No: Denies Disease Other Yes: ENLARGED PROSTATE, OVERACTIVE BLADDER Chemotherapy Yes Clinic Medical History (Last Reviewed 01/29/18 @ 15:03 by SHIRLENE Cordon) Benign colon polyp (Chronic Medical) 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 CVA 2013. Endarterectomy 2009. RT. INTERTROCH[employer]TERIC HIP FX INTRAMEDULLARY NAILING 08-11-17. Cataract extraction 2004. Biopsy 2013. Arthroscopic meniscectomy 2002. Colonoscopy 2002. Dissection 2002. TURP 1998. Hernia repair 1995. Amputation finger 1960. Appendectomy 1951 Family History: Family History (Last Reviewed 01/29/18 @ 15:03 by Opal Castillo [facility]) Mother Stroke Dementia Father Pulmonary embolism COPD (chronic obstructive pulmonary disease) - Social History Smoking status: Never smoker Substance use type: does not use Alcohol intake: never Alcohol intake frequency: does not drink Current occupational status: retired Current residence: [place] Physical Exam - Limitations Limitations: other (dementia) - General General appearance: alert, in no apparent distress - Normal Exams: Head:: Normocephalic without trauma Eyes:: Pupils are PERRLA w/ EOMI, No scleral icterus, irritation, or foreign bodies noted ENMT:: No facial trauma, nasal exudates, pharyngeal erythema, or exudates are noted Neck:: Full range of motion, without adenopathy, JVD, bruits or thyromegaly Chest/Respirations:: Clear all conn (Scattered rhonchi bilat. ), with good airflow, and symmetry bilaterally Cardiovascular:: Regular rate and rhythm, without murmur or gallop, Pulses 2+ all extremities, capillary refill, <2 seconds all extremities Abdomen:: Bowel sounds positive, soft, non-tender, non-distended, no hepatosplenomegaly, masses or bruits noted Lymphatic:: No lymphadenopathy, or lymphedema noted Musculoskeletal:: No tenderness, or deformity noted, good range of motion, all extremities Integumentary:: No rashes, hives, or bruising noted, hair and nails, without abnormality Neurological:: Patient is alert (A&O x 2 No focal deficit. ) Course Vital Signs Temperature 101.1 F H 06/27/18 01:40 Pulse Rate 96 06/27/18 01:40 Respiratory Rate 20 06/27/18 01:40 Blood Pressure 129/63 06/27/18 01:40 Pulse Oximetry 92 06/27/18 01:40 Temperature 99.7 F 06/27/18 04:03 Pulse Rate 74 06/27/18 05:00 Respiratory Rate 16 06/27/18 02:06 Blood Pressure 118/56 06/27/18 05:00 Pulse Oximetry 93 06/27/18 05:00 Medical Decision Making - [facility] Narrative Medical decision making narrative: Labs/imaging were discussed in detail with the patient and questions are answered. Patient is given 1 L normal saline intravenously. Patient is started on cefepime 1 g, Levaquin 750 mg, vancomycin 1.5 g IV times one at 0438 and sepsis was considered. Patient was never hypotensive in the emergency department and his lactic acid was less than 4.0. Patient was discussed with the hospitalist Dr. Alejandro Briceno and admitted to the service of Dr. Faria in improved condition. No further orders from accepting physician who is in agreement with the current plan of management. Patient is admitted to the hospital in improved condition. Patient is requiring 2-3 L nasal cannula to keep his oxygen saturation greater than 90% which he does not wear at home. Patient is started on cefepime 1 g, Levaquin 750 mg, vancomycin 1.5 g IV times one at 0438 when sepsis was considered. Patient was never hypotensive in the emergency department and his lactic acid was less than 4.0. - Differential Diagnosis PNA, viral syndrome, UTI, metabolic disorder - Lab Data Result diagrams: 06/27/18 01:50 06/27/18 01:50 Lab Results 06/27/18 06/27/18 06/27/18 Range/Units 01:50 01:50 02:37 WBC 11.3 H (4.5-11.0) T/MM3 RBC 4.41 L (4.50-5.90) M/MM3 Hgb 14.5 (13.5-17.5) GM/DL Hct 42.9 (41-53) % MCV 97.3 (80-100) UM3 MCH 32.9 (26-34) UUG MCHC 33.8 (31-37) GM/DL RDW Std Deviation 46.5 (36.9-50.2) FL Plt Count 216 (130-400) T/MM3 MPV 10.5 (9.4-12.4) UM3 Immature Gran % (Auto) 0.2 (0.0-0.5) % Neut % (Auto) 85.2 H (33-66) % Lymph % (Auto) 8.1 L (23-45) % [place] % (Auto) 5.1 (0-9.0) % Eos % (Auto) 1.2 (0-4) % Baso % (Auto) 0.2 (0-2) % Neut # (Auto) 9.6 H (1.8-7.7) T/MM3 Lymph # (Auto) 0.9 L (1-4.8) T/MM3 [place] # (Auto) 0.6 (0-0.8) T/MM3 Eos # (Auto) 0.1 (0-0.5) T/MM3 Baso # (Auto) 0.0 (0-0.2) T/MM3 Abs Immat Gran (auto) 0.02 (0.00-0.03) T/MM3 Turbidity < 20 (0-20) Sodium 143 (136-146) MEQ/L Potassium 4.1 (3.6-5) MEQ/L Chloride 107 (98-107) MEQ/L Carbon Dioxide 24 (22-30) MEQ/L Anion Gap 12 (5-15) meq/L BUN 18.0 (9-20) MG/DL Creatinine 0.6 L (0.8-1.5) mg/dL Estimated Creat Clear 60 (>50) mL/min GFR Calculation 128 (>60) mL/min BUN/Creatinine Ratio 30 H (6-26) RATIO Glucose 141 H (75-110) MG/DL Calculated Osmolality 279 (261-280) MOSM/KG Calcium 8.8 (8.4-10.2) MG/DL Total Bilirubin 0.90 (0.20-1.30) MG/DL Icterus Index < 2 (0-7) AST 23 (17-59) U/L ALT 16 (1-50) U/L Alkaline Phosphatase 65 (38-126) U/L Troponin I < 0.012 (0-0.12) ng/ml NT-Pro-B Natriuret Pep 417 H (0-175) pg/mL Total Protein 6.8 (6.3-8.2) g/dL Albumin 4.0 (3.5-5.0) g/dL Globulin 2.8 (2.4-3.6) G/DL Albumin/Globulin Ratio 1.4 (1.1-2.2) RATIO Plasma Lactate 1.9 (0.6-2.2) MMOL/L Specimen Hemolysis < 15 (0-25) Ur Collection Type Urine, cath straight Urine Color Yellow (YELLOW) Urine Clarity Clear Urine pH 7.0 (5.0-8.0) Ur Specific [place] 1.015 (1.015-1.025) Urine Protein Negative (NEGATIVE) Urine Glucose (UA) Negative (NEGATIVE) Urine Ketones Negative (NEGATIVE) Urine Occult Blood Negative (NEGATIVE) Urine Nitrate Negative (NEGATIVE) Urine Bilirubin Negative (NEGATIVE) Urine Urobilinogen 2.0 (NORMAL) EU/DL Ur Leukocyte Esterase Negative (NEGATIVE) Urinalysis Comment Microscopic not ind. - Radiology Data CTA chest: Evaluation of the pulmonary arteries is limited but no evidence for pulmonary emboli. Multilobar interstitial thickening and airspace opacities possibly representing a typical pneumonia, pulmonary fibrosis and acute alveolitis or pulmonary edema. CT ABD/PELVIS: No obvious acute processes. - EKG Data EKG #1 EKG results narrative: Sinus Rhythm. 90 bpm. No STEMI. Disposition Clinical Impression: Pneumonia Qualifiers: Pneumonia type: due to unspecified organism Laterality: unspecified laterality Lung location: unspecified part of lung Qualified Code(s): J18.9 - Pneumonia, unspecified organism Disposition: 02 To [facility] Condition: Improved Time of Disposition: 04:30 (Admit. Dr. Faria. ) - Seen By: physician
[2018-06-27] MEDS ORDERED: ALBUTEROL/IPRATROPIUM 2.5mg-0.5mg/3ml NEB AEROSOL ONE (01:56)
[2018-06-27] MEDS ORDERED: IOHEXOL 350mg/ml 100ml INJECTION ONE (03:07)
[2018-06-27] MEDS ORDERED: CEFEPIME 1 GM in NS 100 ML IV ONE (04:38)
[2018-06-27] MEDS ORDERED: LEVOFLOXACIN PB 750 MG/150 ML BAG IV SCH (05:00)
[2018-06-27] MEDS ORDERED: PANTOPRAZOLE 40 MG INJECTION IVP ONE (05:38)
[2018-06-27] MEDS ORDERED: POLYETHYL GLYCOL 3350 17gm PACKET PO PRN (05:38)
[2018-06-27] MEDS ORDERED: ALBUTEROL/IPRATROPIUM 2.5mg-0.5mg/3ml NEB AEROSOL PRN (05:52)
--- NOTE | 2018-06-27 06:00 | History & Physical Report ---
History of Present Illness Date: 06/27/18 Chief complaint: short of breath HPI: This is a 88 y/o male who is a resident at a local nursing care facility. The patient was noted to have 2 episodes of emesis tonight with increased dyspnea thereafter. EMS activated and found to be mildly hypoxic. The patient is transported to the ED where a cxr and subsequent ct angio of the chest demonstrated a possible bilateral lower lobe infiltrate (note that the actual read was vague and non specific). The patient did demonstrate a significant fever @ the [facility]. The patient has advanced dementia and is unable to provide a meaningful history. The patient will be admitted with presumed either aspiration pneumonia or hcap. 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 CVA 2013. Endarterectomy 2009. RT. INTERTROCHANTERIC HIP FX INTRAMEDULLARY NAILING 08-11-17. Cataract extraction 2004. Biopsy 2013. Arthroscopic meniscectomy 2002. Colonoscopy 2002. Dissection 2002. TURP 1998. Hernia repair 1995. Amputation finger 1959. Appendectomy 1951 Family History: Family History (Last Reviewed 01/29/18 @ 15:03 by SHIRLENE Cordon) Mother Stroke Dementia Father Pulmonary embolism COPD (chronic obstructive pulmonary disease) Family History: As Above - Social History Smoking status: Never smoker Medications Home Medications Medication Instructions Recorded Confirmed Type Finasteride 5 mg PO DAILY #0 01/04/12 06/27/18 History Donepezil HCl [Aricept] 5 mg PO HS #0 tab 12/20/13 06/27/18 History oxybutynin chloride 5 mg tablet 5 mg PO DAILY tab 04/02/17 06/27/18 History Namenda (memantine) 10 mg tablet 10 mg PO BID #60 tab 04/22/17 06/27/18 Rx Norvasc (amlodipine) 5 mg tablet 5 mg PO DAILY tab 04/22/17 06/27/18 History lutein 6 mg capsule 6 mg PO DAILY cap 04/22/17 06/27/18 History lisinopril 10 mg tablet 10 mg PO DAILY tab 08/07/17 06/27/18 History Cyanocobalamin (B-12) [Vit. B-12] 1,000 mcg IM 1 MONTH 08/11/17 06/27/18 History Acetaminophen [Tylenol] 650 mg PO QID tab 08/15/17 06/27/18 Rx Hydrocodone/APAP 5/325 [[place] 1 tab PO Q6H PRN #50 tab 08/15/17 06/27/18 Rx 5/325] Senna + Docusate [Senna Plus 2 tab PO BID tab 08/15/17 06/27/18 Rx Tablet] Klor-Con M20 (potassium chloride 20 meq PO DAILY 31 Days 01/29/18 06/27/18 History ER) 20 mEq tablet,(part/cryst) Vitamin D3 (cholecalciferol) 1,000 1,000 unit PO DAILY cap 01/29/18 06/27/18 History unit capsule Zoloft (sertraline) 25 mg tablet 50 mg PO HS tab 01/29/18 06/27/18 History aspirin 81 mg tablet,delayed 81 mg PO DAILY 01/29/18 06/27/18 History release levothyroxine 112 mcg tablet 112 mcg PO DAILY 31 Days #31 tab 01/29/18 06/27/18 History polyethylene glycol 3350 17 gram 17 g PO DAILY PRN 01/29/18 06/27/18 History oral powder packet fludrocortisone 0.1 mg tablet 0.1 mg PO DAILY #30 tab 04/28/18 06/27/18 Rx Allergies Allergy/AdvReac Type Severity Reaction Status Date / Time No Known Allergies Allergy Verified 06/27/18 01:53 Exam Vital Signs: Temperature 99.7 F 06/27/18 05:41 Pulse Rate 74 06/27/18 05:41 Respiratory Rate 16 06/27/18 05:41 Blood Pressure 118/56 06/27/18 05:41 Pulse Oximetry 93 06/27/18 05:41 Telemetry Rhythm: Sinus Rhythm Height/Weight/BMI: Height 1.83 m Weight 84.3 kg Body Mass Index 25.2 - Constitutional Present: no acute distress - Routine HEENT Exam Head: Present: normocephalic, atraumatic Eye: Present: PERRL ENT: Present: mucous membranes moist - Routine Neck Exam Present: supple, full ROM - Routine Respiratory Exam Comments: rhonchi in left base - Routine Cardiovascular Exam Present: RRR, S3 - Routine Abdominal Exam Present: soft, normoactive bowel sounds, non distended, non tender - Routine Extremities Exam Present: edema, full ROM - Routine Back/Spine/Pelvis Exam Back/Spine: Present: full ROM - Routine Skin Exam Present: intact - Routine Neurological Exam Present: alert, moving all extremities, normal tone, normal speech. Absent: oriented X3, motor deficit - Routine Psychiatric Exam Present: normal affect. Absent: normal thought process Results - Labs CBC & Chem 7: 06/27/18 01:50 06/27/18 01:50 Labs: reviewed and will be discussed below Microbiology Results: Microbiology 06/27/18 02:10 Peripheral/Iv Start Blood Culture - Preliminary Culture Initiated - Results Pending 06/27/18 02:08 Peripheral/Iv Start Blood Culture - Preliminary Culture Initiated - Results Pending Assessment and Plan (1) Hypoxia Current visit: Yes Status: Acute (2) Pneumonia Current visit: Yes Status: Acute (3) Dementia Current visit: No Status: Chronic (4) Hypertension Problem details: With orthostasis Current visit: No Status: Chronic (5) Coronary artery disease Current visit: No Status: Chronic (6) Hypothyroid Current visit: No Status: Chronic Assessment and Plan: 1. hypoxia acute POA: mild in nature. CXR and CT angio of the chest suggest pulmonary process. CTA is vague in interpretation, with fever will assume infectious in nature and tx as described below 2. HcAP acute POA: recent hospitalization and [place] resident. ED started appropriately, cefepime, vanco, levaquin. continue with cx. Because ? of aspiration, npo and consider speech eval 3. Dementia mod severe chronic POA: continue meds. 4. hypothryoid chronic POA: continue supplement 5. dVT ppx; SCD, lovenox 6. gastric ppx; PPI 7. HTN acute not POA: hold BENITEZ inhibitor acutely 2/2 soft blood pressures acutely 8. sepsis acute POA: febrile, tachy, leukocytosis LA okay. fluids and repeat markers in 24 hours DVT Prophylaxis: SCD's, Lovenox GI Prophylaxis: Protonix Resuscitation Status: Full Code - Time spent with patient Time with patient PN: 35 minutes - Physician Narrative Physician: Esequiel Faria MD Narrative: Date: 06/27/18 Time: 556 Dr. Briceno's note reviewed. Mr. Ring interviewed and examined at bedside on 2 separate occasions. On the second occasion, patient's daughter and DURABLE POWER OF SPRING COILER HAND, Mrs. Padmini Harrell was present at bedside CC: Fever, shortness of breath HPI: A pleasant 88-year-old male patient of Dr. Jennings resident of [facility] facility was brought to the emergency room with episodes of vomiting and shortness of breath. Patient had 2 episodes of vomiting following which he had complaints of shortness of breath and patient had a temperature of 101.4F at group home following which she was brought to emergency room. In the emergency room, patient had temperature of 101.1F. Patient had chest x-ray performed and thereafter had CT angiogram scan of chest which showed evidence of questionable atypical pneumonia with multilobar interstitial thickening. CT abdomen and pelvis did not show any acute problems. Tele-hospitalist was consulted by ER physician and thereafter patient was admitted to medical floor. At the time of examination, patient resting in bedside. Alert, awake, oriented to self and person however not oriented to time or place. Patient reported year to be "12 or 13" and place to be [place]. Patient could not provide further history. No reported chest pain, no palpitations, no shortness of breath at the time of examination. Later on, patient's daughter arrived at bedside. Reported that she was called from group home about patient having vomiting followed by hypoxia and temperature of 101.4 Fahrenheit. Patient noted to have left-sided facial droop, patient's daughter reports that droop is long-standing since his episode of CVA in 2014. Past medical, surgical history, family history and social history verified with patient's daughter. PH: Hypertension. Hyperlipidemia. Hypothyroidism. History of right-sided parotid gland tumor. Diverticulosis. Benign colon polyps. BPH. Dementia. CVA with residual left-sided weakness. History of multiple TIAs. SH: Right-sided parented gland excision surgery. Right hip fracture ORIF. Cataract extraction. Colonoscopy. Appendectomy. Left second digit excision following all field accident. TURP. Hernia repair surgery. Cataract extraction. Endarterectomy. Social: Significant previous history of tobacco use, reportedly quit 20 years ago. Patient also has a previous history of daily alcohol use and patient's daughter reports he had a DUI about 3 years ago. No reported history of recreational drug use. Patient retired and has been at [facility] for the past 2 years. FH: Patient's mother had a history of CVA, patient's father had a history of COPD. No reported family history of diabetes mellitus, no cancer, no coronary artery disease. ROS: Difficult to obtain from patient due to dementia. As per ER records, patient had fever, cough, vomiting, shortness of breath. (Patient denies all these complaints at the time of examination). EXAM: General: Alert, awake, oriented to self and person. Patient not oriented to time or place. Not in acute distress. Head: Positive left-sided facial droop. Pupils equal, round, reactive to light and accommodation. Extraocular movements intact. Neck: No elevation in JVP. No pharyngeal erythema noted. Chest: The patient does not use accessory muscles for breathing. Lungs: Breath sounds audible on auscultation bilateral lung conn. No wheezing , no rhonchi, no crepitations, no crackles. No pleural rub. CVS: S1, S2 heard on auscultation. Normal rate and rhythm. No murmur, no S3/S4 gallops. Abdomen: Soft, nontender, no distention. Bowel sounds appreciated on auscultation. : No flank tenderness, no suprapubic distention or tenderness. Skin: No rashes, no induration, no erythema. Capillary refill less than 4 seconds. Extremities: No evidence of pedal edema bilateral lower extremities. No calf tenderness bilaterally. Palpable dorsalis pedis and posterior tibial pulses bilateral lower extremities. INSTRUCTOR OF SPANISH: Strength 4/5 left upper and lower extremities, 5/5 right upper and lower extremities. DATA: Laboratory Tests 06/27/18 06/27/18 06/27/18 01:50 02:37 05:59 Calcium 8.8 AST 23 ALT 16 Alkaline Phosphatase 65 Troponin I < 0.012 NT-Pro-B Natriuret Pep 417 H Total Protein 6.8 Albumin 4.0 Globulin 2.8 Plasma Lactate 1.9 1.9 Ur Collection Type Urine, cath straight Urine Color Yellow Urine Clarity Clear Urine pH 7.0 Ur Specific [place] 1.015 Urine Protein Negative Urine Glucose (UA) Negative Urine Ketones Negative Urine Occult Blood Negative Urine Nitrate Negative Urine Bilirubin Negative Urine Urobilinogen 2.0 Ur Leukocyte Esterase Negative Urinalysis Comment Microscopic not ind. Adenovirus (PCR) B.parapertussis DNA PCR C. pneumoniae DNA (PCR) Coronavirus OC43 (PCR) Coronavirus HKU1 (PCR) Coronavirus 229E (PCR) Coronavirus NL63 (PCR) Human Metapneumovir PCR Influenza Type A (PCR) Influenza Type B (PCR) M. pneumoniae (PCR) Parainfluenza 1 (PCR) Parainfluenza 2 (PCR) Parainfluenza 3 (PCR) Parainfluenza 4 (PCR) RSV (PCR) Entero/Rhino (PCR) 06/27/18 06:24 Calcium AST ALT Alkaline Phosphatase Troponin I NT-Pro-B Natriuret Pep Total Protein Albumin Globulin Plasma Lactate Ur Collection Type Urine Color Urine Clarity Urine pH Ur Specific [place] Urine Protein Urine Glucose (UA) Urine Ketones Urine Occult Blood Urine Nitrate Urine Bilirubin Urine Urobilinogen Ur Leukocyte Esterase Urinalysis Comment Adenovirus (PCR) Negative B.parapertussis DNA PCR Negative C. pneumoniae DNA (PCR) Negative Coronavirus OC43 (PCR) Negative Coronavirus HKU1 (PCR) Negative Coronavirus 229E (PCR) Negative Coronavirus NL63 (PCR) Negative Human Metapneumovir PCR Negative Influenza Type A (PCR) Negative Influenza Type B (PCR) Negative M. pneumoniae (PCR) Negative Parainfluenza 1 (PCR) Negative Parainfluenza 2 (PCR) Negative Parainfluenza 3 (PCR) Negative Parainfluenza 4 (PCR) Negative RSV (PCR) Negative Entero/Rhino (PCR) Negative CT angiogram scan of chest performed on 06/27/2018 - #1 evaluation of the peripheral pulmonary arteries are limited by motion artifact. Within the limitation of the study no evidence of pulmonary artery emboli. #2 multilobar interstitial thickening and air space opacities possibly representing atypical pneumonia, pulmonary fibrosis and acute on colitis or pulmonary interstitial edema. CT scan abdomen and pelvis performed on 06/27/2018 - no acute findings. There is a gas filled redundant stretch of sigmoid colon which extends to the right mid abdomen, there are gas-filled prominent loops of proximal and transverse colon. There is however no bowel obstruction. No sigmoid volvulus. No mucosal thickening. 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 Cautious IV fluids normal saline at 50 mL per hour. Awaiting results of blood culture 2, Legionella urinary antigen. Antibiotic coverage with IV cefepime 1 g every 6 hours, IV Levaquin 500 mg daily and IV vancomycin as per pharmacy dosing. DuoNeb 3 mL nebulization treatment every 6 hours scheduled and every 2 hours as needed for wheezing or shortness of breath. Continue home medication aspirin, Aricept, Proscar, Synthroid, Namenda, sertraline, Florinef. Plan tests restart home medication amlodipine 5 mg and lisinopril 10 mg from tomorrow based on patient's blood pressures. Lovenox 40 mg subcutaneous at bedtime. RT consulted. Patient has good oxygen saturations on 2 L by nasal cannula, will decrease to 1 L and plan to discontinue supplemental oxygen later this afternoon as tolerated. CBC with differential, CMP, mag, phosphorus ordered for tomorrow. Hospital Course Summary Disclaimer: The visit summary below is not to be considered part of the above Progress Note.
[2018-06-27] MEDS ORDERED: VANCOMYCIN - PHARMACY CONSULT MC ONE (06:07)
[2018-06-27] MEDS ORDERED: ALBUTEROL 2.5mg/3ml (0.083%) NEB AEROSOL PRN (06:08)
[2018-06-27] MEDS: ALBUTEROL/IPRATROPIUM 2.5mg-0.5mg/3ml NEB AEROSOL SCH ×4 (07:28→19:45)
[2018-06-27] MEDS: LEVOTHYROXINE 112 MCG TABLET PO SCH (07:30)
--- NOTE | 2018-06-27 08:31 | Pharmacy Consult-Antibiotics ---
Pharmacy Consult-Vancomycin - Laboratory Information WBC 11.3 T/MM3 (4.5-11.0) H 06/27/18 01:50 BUN 18.0 MG/DL (9-20) 06/27/18 01:50 Creatinine 0.6 mg/dL (0.8-1.5) L 06/27/18 01:50 - Consult Information VANCOMYCIN CONSULT: Dx: Pneumonia Current Renal Fx: SCr = 0.6mg/dl. Will give Vancomycin 1,250mg IV q12hrs. Will continue to monitor and adjust regimen to maintain therapeutic levels. Thank you.
[2018-06-27] MEDS: ASPIRIN *EC* 81 MG TABLET PO SCH (10:23)
[2018-06-27] MEDS: FINASTERIDE 5 MG TABLET PO SCH (10:23)
[2018-06-27] MEDS: FLUDROCORTISONE 0.1 MG TABLET PO SCH (10:23)
[2018-06-27] MEDS: ENOXAPARIN 40 MG/0.4 ML INJECTION SQ SCH (10:24)
[2018-06-27] MEDS: MEMANTINE 10 MG TABLET PO SCH ×2 (10:24→20:45)
[2018-06-27] MEDS: CEFEPIME 1 GM in NS 100 ML IV SCH ×3 (10:37→23:34)
[2018-06-27] MEDS: NS 1,000 ML IV SCH (14:03)
[2018-06-27] MEDS: SERTRALINE 50 MG TABLET PO SCH (20:44)
[2018-06-27] MEDS: ACETAMINOPHEN 325 MG TABLET PO PRN (20:44)
[2018-06-27] MEDS: DONEPEZIL 5 MG TABLET PO SCH (20:45)
[2018-06-28] MEDS: CEFEPIME 1 GM in NS 100 ML IV SCH ×4 (04:57→23:03)
[2018-06-28] MEDS: SALINE FLUSH 10ml SYRINGE IVF PRN (04:58)
[2018-06-28] MEDS: LEVOTHYROXINE 112 MCG TABLET PO SCH (06:14)
[2018-06-28] MEDS: PANTOPRAZOLE 40 MG TABLET PO SCH (06:14)
[2018-06-28] MEDS: LEVOFLOXACIN PB 500 MG/100 ML BAG IV SCH (06:16)
[2018-06-28] MEDS: ALBUTEROL/IPRATROPIUM 2.5mg-0.5mg/3ml NEB AEROSOL SCH ×4 (07:00→19:30)
[2018-06-28] MEDS ORDERED: MORPHINE SULFATE 2mg INJECTION IVP PRN (07:35)
[2018-06-28] MEDS: NITROGLYCERIN 0.4 MG SUBLINGUAL TABLET SL PRN ×3 (07:35→08:01)
[2018-06-28] MEDS: ASPIRIN *EC* 81 MG TABLET PO SCH (08:06)
[2018-06-28] MEDS: FINASTERIDE 5 MG TABLET PO SCH (08:06)
[2018-06-28] MEDS: FLUDROCORTISONE 0.1 MG TABLET PO SCH (08:06)
[2018-06-28] MEDS: MEMANTINE 10 MG TABLET PO SCH ×2 (08:06→21:02)
[2018-06-28] MEDS: ENOXAPARIN 40 MG/0.4 ML INJECTION SQ SCH (08:06)
--- NOTE | 2018-06-28 09:32 | CT Scan Report ---
Indication: hypoxia PROCEDURE: CT angio pulm emboli: Encounter: Initial Comparison: None Technique: Axial CT pulmonary angiographic phase images were performed through the chest after the administration of intravenous contrast. Coronal and Sagittal MIP reconstructed images were created and reviewed. Automated Exposure Control and Iterative Reconstruction dose reducing techniques were utilized. Contrast: Omnipaque 350 85 mL Findings: Pulmonary arteries: Exam is diagnostic to the segmental pulmonary arterial level. No filling defects identified to suggest a pulmonary embolus. Other findings: Multifocal airspace consolidation worse in the left lower lobe. No pneumothorax or pleural effusion. The central airways are patent. Subpleural fibrotic changes. Mucus or debris in the trachea. No axillary or mediastinal lymphadenopathy by CT size criteria. Heart is moderately enlarged. No pericardial effusion. The upper abdomen shows no acute findings. Impression: No pulmonary embolus. Pneumonia. There is a preliminary report by [facility]. .
--- NOTE | 2018-06-28 09:35 | CT Scan Report ---
Indication: vomiting PROCEDURE: CT abdomen pelvis w con: Encounter: Initial Comparison: None Technique: Axial CT images were performed through the abdomen and pelvis after the administration of intravenous contrast. Coronal and sagittal two-dimensional reformats. Automated Exposure Control and Iterative Reconstruction dose reducing techniques were utilized. Contrast: Omnipaque 300 100 mL Findings: Left lower lobe airspace consolidation with patchy right lower lobe infiltrate. The liver is unremarkable. Gallbladder is distended. The spleen, pancreas and adrenal glands are within normal limits. Bilateral renal cysts. No abdominal or pelvic adenopathy. Atherosclerotic plaque in the abdominal aorta and its major branches. Bladder is normal. No free fluid or free air is. Moderate stool in the colon. Chronic appearing L2 compression fracture. Orthopedic hardware in the right femur. Impression: No acute disease process seen. There is a preliminary report by [employer] [facility]. .
--- NOTE | 2018-06-28 09:36 | XRay Report ---
Indication: fever PROCEDURE: XR chest 1V: Encounter: Initial Comparison: CT chest from the same date Findings: Airspace consolidation in both lower lobes, greater on the left. Chronic interstitial prominence and mild emphysema. No pneumothorax. Heart size is mildly enlarged. Mediastinal contours are normal. Pulmonary vascularity is slightly prominent. Impression: Lower lobe pneumonia or aspiration, greater on the left. .
--- NOTE | 2018-06-28 16:10 | Progress Note ---
- Date 06/28/18 Subjective: Nursing staff informed hospitalist earlier this morning the patient complained of chest pain. Symptoms resolved after sublingual nitroglycerin. EKG was ordered which showed evidence of incomplete right bundle branch block without any acute ST/T changes. Troponin I within normal limits. We'll repeat EKG and cardiac enzymes every 6 hours 2. At the time of evaluation, patient resting in bedside chair. No reported chest pain, no shortness of breath. Patient does report having a cough. WBC count further increased to 15,400 this morning. On telemetry, patient did have a 6 beat run of PACs and later in the afternoon had nonsustained PSVT. Overall, patient has been tachycardic and started on metoprolol tartrate 12.5 mg by mouth twice a day. Patient did have low-grade temperature, 99.5F this morning. Objective Vital signs: Temperature 99.5 F 06/28/18 07:19 Pulse Rate 91 06/28/18 13:53 Respiratory Rate 20 06/28/18 15:29 Blood Pressure 149/88 H 06/28/18 13:53 Pulse Oximetry 91 06/28/18 15:29 Height/Weight/BMI: Height 1.83 m Weight 84.5 kg Body Mass Index 25.2 - Additional findings Additional findings: General: Alert, awake, oriented to self and person. Patient not oriented to time or place. Not in acute distress. Head: Positive left-sided facial droop. Pupils equal, round, reactive to light and accommodation. Extraocular movements intact. Neck: No elevation in JVP. No pharyngeal erythema noted. Chest: The patient does not use accessory muscles for breathing. Lungs: Breath sounds audible on auscultation bilateral lung conn. Crackles on auscultation bilateral lung bases. No wheezing. No pleural rub. CVS: S1, S2 heard on auscultation. Tachycardic. No murmur, no S3/S4 gallops. Abdomen: Soft, nontender, no distention. Bowel sounds appreciated on auscultation. : No flank tenderness, no suprapubic distention or tenderness. Skin: No rashes, no induration, no erythema. Capillary refill less than 4 seconds. 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 No evidence of pedal edema bilateral lower extremities. No calf tenderness bilaterally. Palpable dorsalis pedis and posterior tibial pulses bilateral lower extremities. LEVI MAKER: Strength 4/5 left upper and lower extremities, 5/5 right upper and lower extremities. Results - Labs CBC & Chem 7: 06/28/18 04:00 06/28/18 04:00 Labs: Laboratory Tests 06/27/18 06/28/18 06/28/18 01:50 04:00 07:42 Calcium 8.3 L Total Bilirubin 2.10 H Icterus Index < 2 AST 19 ALT 13 Alkaline Phosphatase 44 D Troponin I < 0.012 0.026 D 06/28/18 14:13 Calcium Total Bilirubin Icterus Index AST ALT Alkaline Phosphatase Troponin I 0.025 Microbiology Results: Microbiology 06/27/18 02:08 Peripheral/Iv Start Blood Culture - Preliminary No Growth After 1 Day 06/27/18 02:10 Peripheral/Iv Start Blood Culture - Preliminary No Growth After 1 Day 06/27/18 08:12 Urine Legionella Urinary Antigen - Final Assessment and Plan (1) Hypoxia Current visit: Yes Status: Acute (2) Pneumonia Current visit: Yes Status: Acute (3) Dementia Current visit: No Status: Chronic (4) Hypertension Problem details: With orthostasis Current visit: No Status: Chronic (5) Coronary artery disease Current visit: No Status: Chronic (6) Hypothyroid Current visit: No Status: Chronic Assessment and Plan: Assessment: Acute hypoxemic respiratory failure Sepsis from aspiration pneumonia, concern for HCAP Nonsustained PACs, PSVT noted on telemetry. 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 Legionella urine antigen negative. Cautious IV fluids normal saline at 50 mL per hour. Antibiotic coverage with IV cefepime 1 g every 6 hours, IV Levaquin 500 mg daily and IV vancomycin as per pharmacy dosing. Serial EKGs did not demonstrate any acute ST/T changes. Troponin I 3 within normal limits. Patient started on metoprolol tartrate 12.5 mg by mouth twice a day. DuoNeb 3 mL nebulization treatment every 6 hours scheduled and every 2 hours as needed for wheezing or shortness of breath. Continue home medication aspirin, Aricept, Proscar, Synthroid, Namenda, sertraline, Florinef. Continue home medication amlodipine 5 mg and lisinopril 10 mg from tomorrow based on patient's blood pressures. Lovenox 40 mg subcutaneous at bedtime. Supplemental oxygen as needed to maintain oxygen saturations greater than 90%. CBC with differential, CMP, mag, phosphorus ordered for tomorrow. DVT Prophylaxis: SCD's, Lovenox GI Prophylaxis: Protonix Resuscitation Status: Full Code - Physician Narrative Narrative: Date: 06/28/18 Time: 1600 Hospital Course Summary Disclaimer: The visit summary below is not to be considered part of the above Progress Note. Hospital Course: 06/27/2018 Patient status post 1 L IV normal saline bolus provided in the emergency room. Cautious IV fluids normal saline at 50 mL per hour. Awaiting results of blood culture 2, Legionella urinary antigen. Antibiotic coverage with IV cefepime 1 g every 6 hours, IV Levaquin 500 mg daily and IV vancomycin as per pharmacy dosing. DuoNeb 3 mL nebulization treatment every 6 hours scheduled and every 2 hours as needed for wheezing or shortness of breath. Continue home medication aspirin, Aricept, Proscar, Synthroid, Namenda, sertraline, Florinef. Plan tests restart home medication amlodipine 5 mg and lisinopril 10 mg from tomorrow based on patient's blood pressures. Lovenox 40 mg subcutaneous at bedtime. RT consulted. Patient has good oxygen saturations on 2 L by nasal cannula, will decrease to 1 L and plan to discontinue supplemental oxygen later this afternoon as tolerated. CBC with differential, CMP, mag, phosphorus ordered for tomorrow. 06/28/2018 Cautious IV fluids normal saline at 50 mL per hour. Antibiotic coverage with IV cefepime 1 g every 6 hours, IV Levaquin 500 mg daily and IV vancomycin as per pharmacy dosing. Serial EKGs did not demonstrate any acute ST/T changes. Troponin I 3 within normal limits. Patient started on metoprolol tartrate 12.5 mg by mouth twice a day. Continue home medication amlodipine 5 mg and lisinopril 10 mg from tomorrow based on patient's blood pressures.
[2018-06-28] MEDS: AMLODIPINE 5 MG TABLET PO SCH (16:34)
[2018-06-28] MEDS: LISINOPRIL 10 MG TABLET PO SCH (16:34)
[2018-06-28] MEDS: NS 1,000 ML IV SCH (16:47)
[2018-06-28] MEDS: SERTRALINE 50 MG TABLET PO SCH (21:02)
[2018-06-28] MEDS: DONEPEZIL 5 MG TABLET PO SCH (21:02)
[2018-06-28] MEDS: ACETAMINOPHEN 325 MG TABLET PO PRN (23:09)
[2018-06-29] MEDS: CEFEPIME 1 GM in NS 100 ML IV SCH ×4 (04:04→23:59)
[2018-06-29] MEDS: LEVOFLOXACIN PB 500 MG/100 ML BAG IV SCH (05:28)
[2018-06-29] MEDS: ALBUTEROL/IPRATROPIUM 2.5mg-0.5mg/3ml NEB AEROSOL SCH ×4 (06:57→20:15)
[2018-06-29] MEDS: LEVOTHYROXINE 112 MCG TABLET PO SCH (07:19)
[2018-06-29] MEDS: PANTOPRAZOLE 40 MG TABLET PO SCH (07:19)
[2018-06-29] MEDS: ASPIRIN *EC* 81 MG TABLET PO SCH (08:06)
[2018-06-29] MEDS: ENOXAPARIN 40 MG/0.4 ML INJECTION SQ SCH (08:06)
[2018-06-29] MEDS: AMLODIPINE 5 MG TABLET PO SCH (08:06)
[2018-06-29] MEDS: FINASTERIDE 5 MG TABLET PO SCH (08:07)
[2018-06-29] MEDS: MEMANTINE 10 MG TABLET PO SCH ×2 (08:07→21:16)
[2018-06-29] MEDS: FLUDROCORTISONE 0.1 MG TABLET PO SCH (08:07)
[2018-06-29] MEDS: LISINOPRIL 10 MG TABLET PO SCH (08:07)
[2018-06-29] MEDS ORDERED: VANCOMYCIN 2,000 MG in NS 500 ML IV ONE (09:00)
--- NOTE | 2018-06-29 11:05 | Pharmacy Consult-Antibiotics ---
Pharmacy Consult-Vancomycin - Laboratory Information WBC 15.4 T/MM3 (4.5-11.0) H 06/28/18 04:00 BUN 18.0 MG/DL (9-20) 06/28/18 04:00 Creatinine 0.6 mg/dL (0.8-1.5) L 06/28/18 04:00 Vancomycin Trough 11.07 ug/mL (15-20) L 06/29/18 05:44 - Consult Information VANCOMYCIN CONSULT: Vancomycin Trough = 11.07 mcg/ml. Today's SCr = 0.6 mg/dl. Will give Vancomycin 1,750 mg IV q12hrs. Will continue to monitor and make adjustments accordingly. Thank you.
[2018-06-29] MEDS: ACETAMINOPHEN 325 MG TABLET PO PRN ×2 (15:41→21:30)
--- NOTE | 2018-06-29 18:47 | Progress Note ---
- Date 06/29/18 Subjective: Mr. Ring was seen earlier today at which time he reported that he was breathing better and he denied cough or sputum production. He complained of some pain in his left hip indicating it's been present for a couple of weeks now. He denied chest pain or palpitations, reports he is having bowel movements without difficulty and denied nausea. His appetite is poor and he has little interest in eating or drinking. He denied lightheadedness or weakness and is walking with a walker and assistance in the room. Objective Vital signs: Temperature 100.3 F 06/29/18 15:00 Pulse Rate 81 06/29/18 17:00 Respiratory Rate 22 06/29/18 15:00 Blood Pressure 171/92 H 06/29/18 15:00 Pulse Oximetry 94 - 4L 06/29/18 15:51 I/O 2460/840 NAD, pleasantly confused cooperative Conjunctiva clear, sclera anicteric, oropharynx clear Respirations nonlabored, coarse sounds at the left base without wheezing Regular rhythm, S1-S2 Abdomen soft, nontender, bowel sounds present Extremities without edema Tender to palpation over the left greater trochanter-mild Skin without rash Rhythm: Normal Sinus Rhythm Cardiac Ectopy: Occasional PVC's Height/Weight/BMI: Height 1.83 m Weight 85 kg Body Mass Index 25.2 Results - Labs CBC & Chem 7: 06/28/18 04:00 06/28/18 04:00 Microbiology Results: Microbiology 06/27/18 02:10 Peripheral/Iv Start Blood Culture - Preliminary No Growth After 2 Days 06/27/18 02:08 Peripheral/Iv Start Blood Culture - Preliminary No Growth After 2 Days 06/27/18 08:12 Urine Legionella Urinary Antigen - Final Assessment and Plan (1) Acute respiratory failure with hypoxia Current visit: Yes Status: Acute (2) Pneumonia Current visit: Yes Status: Acute Assessment and Plan: Assessment: Acute hypoxemic respiratory failure Sepsis from aspiration pneumonia, concern for HCAP Nonsustained PACs, PSVT noted on telemetry. 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 Blood cultures negative at 48 hours-discontinue vancomycin. Intermittent low-grade fevers consistent with aspiration; remains on mechanical soft diet with nectar thickened liquids and is to be fully upright for all oral intake per speech therapy recommendations. Repeat chest x-ray in a.m., continues to require supplemental oxygen. Blood pressure higher today-on home regimen. Patient is on Florinef, for orthostatic hypotension documented during hospitalization in August 2017. Will permit supine blood pressures higher than typically accepted due to history of falls with orthostasis. Bilirubin noted to be modestly elevated at 2.1 on 06/28-remainder of liver enzymes normal at that time. Recheck in a.m. with fractionated bili. DVT Prophylaxis: SCD's, Lovenox GI Prophylaxis: Protonix Resuscitation Status: Full Code - Physician Narrative Narrative: Date: 06/29/18 Time: 1843 Hospital Course Summary Disclaimer: The visit summary below is not to be considered part of the above Progress Note. Hospital Course: 06/27/2018 Patient status post 1 L IV normal saline bolus provided in the emergency room. Cautious IV fluids normal saline at 50 mL per hour. Awaiting results of blood culture 2, Legionella urinary antigen. Antibiotic coverage with IV cefepime 1 g every 6 hours, IV Levaquin 500 mg daily and IV vancomycin as per pharmacy dosing. DuoNeb 3 mL nebulization treatment every 6 hours scheduled and every 2 hours as needed for wheezing or shortness of breath. Continue home medication aspirin, Aricept, Proscar, Synthroid, Namenda, sertraline, Florinef. Plan tests restart home medication amlodipine 5 mg and lisinopril 10 mg from tomorrow based on patient's blood pressures. Lovenox 40 mg subcutaneous at bedtime. RT consulted. Patient has good oxygen saturations on 2 L by nasal cannula, will decrease to 1 L and plan to discontinue supplemental oxygen later this afternoon as tolerated. CBC with differential, CMP, mag, phosphorus ordered for tomorrow. 06/28/2018 Cautious IV fluids normal saline at 50 mL per hour. Antibiotic coverage with IV cefepime 1 g every 6 hours, IV Levaquin 500 mg daily and IV vancomycin as per pharmacy dosing. Serial EKGs did not demonstrate any acute ST/T changes. Troponin I 3 within normal limits. Patient started on metoprolol tartrate 12.5 mg by mouth twice a day. Continue home medication amlodipine 5 mg and lisinopril 10 mg from tomorrow based on patient's blood pressures. 06/29/18 Remains on cefepime, Levaquin, and vancomycin for pneumonia with healthcare pathogen exposure. Blood cultures negative at 48 hours-discontinue vancomycin. Intermittent low-grade fevers consistent with aspiration; remains on mechanical soft diet with nectar thickened liquids and is to be fully upright for all oral intake per speech therapy recommendations. Repeat chest x-ray in a.m., continues to require supplemental oxygen. Blood pressure higher today-on home regimen. Patient is on Florinef, for orthostatic hypotension documented during hospitalization in August 2017. Will permit supine blood pressures higher than typically accepted due to history of falls with orthostasis. Bilirubin noted to be modestly elevated at 2.1 on 06/28-remainder of liver enzymes normal at that time. Recheck in a.m. with fractionated bili.
[2018-06-29] MEDS: NS 1,000 ML IV SCH (19:24)
[2018-06-29] MEDS: SERTRALINE 50 MG TABLET PO SCH (21:16)
[2018-06-29] MEDS: DONEPEZIL 5 MG TABLET PO SCH (21:16)
[2018-06-30] MEDS: CEFEPIME 1 GM in NS 100 ML IV SCH ×3 (05:29→17:11)
[2018-06-30] MEDS: PANTOPRAZOLE 40 MG TABLET PO SCH (06:13)
[2018-06-30] MEDS: LEVOFLOXACIN PB 500 MG/100 ML BAG IV SCH (06:13)
[2018-06-30] MEDS: LEVOTHYROXINE 112 MCG TABLET PO SCH (06:21)
[2018-06-30] MEDS: ALBUTEROL/IPRATROPIUM 2.5mg-0.5mg/3ml NEB AEROSOL SCH ×4 (08:27→19:39)
[2018-06-30] MEDS ORDERED: FUROSEMIDE 20 MG/2 ML INJECTION IVP ONE (09:34)
[2018-06-30] MEDS: AMLODIPINE 5 MG TABLET PO SCH (10:03)
[2018-06-30] MEDS: ASPIRIN *EC* 81 MG TABLET PO SCH (10:03)
[2018-06-30] MEDS: ENOXAPARIN 40 MG/0.4 ML INJECTION SQ SCH (10:03)
[2018-06-30] MEDS: FINASTERIDE 5 MG TABLET PO SCH (10:04)
[2018-06-30] MEDS: FLUDROCORTISONE 0.1 MG TABLET PO SCH (10:04)
[2018-06-30] MEDS: LISINOPRIL 10 MG TABLET PO SCH (10:04)
[2018-06-30] MEDS: MEMANTINE 10 MG TABLET PO SCH ×2 (10:05→21:35)
[2018-06-30] MEDS: SALINE FLUSH 10ml SYRINGE IVF PRN ×2 (10:05→14:22)
[2018-06-30] MEDS: LIDOCAINE 1% 2ml INJ 10 MG, POTASSIUM CHLORIDE INJ 10 MEQ in NS 100 ML IV SCH ×4 (10:18→15:39)
--- NOTE | 2018-06-30 10:19 | XRay Report ---
Indication: pneumonia PROCEDURE: XR chest 1V: Encounter: Initial Comparison: June 27, 2018 Findings: Worsening airspace consolidation in the right upper lobe. Probable small left effusion. Aeration of the left lower lobe has improved. No pneumothorax. Heart size and mediastinal contours are stable. Pulmonary vascularity is indistinct. Impression: Worsening right upper lobe infiltrate with mild to moderate edema. .
--- NOTE | 2018-06-30 16:30 | Progress Note ---
- Date 06/30/18 Subjective: Parrish is seen today in follow up. He is resting while watching TV. He remains on 5 liters of oxygen to maintain O2 sats. He states that "he's felt better" however he does not have any specific complaints. Denies having chest pain, abdominal pain or shortness of breath. Ate 95% of lunch. Weight stable. Objective Vital signs: Temperature 96.0 F L 06/30/18 15:00 Pulse Rate 77 06/30/18 15:00 Respiratory Rate 24 06/30/18 15:50 Blood Pressure 159/82 H 06/30/18 15:00 Pulse Oximetry 92 06/30/18 15:50 Cardiac Ectopy: Occasional PVC's Height/Weight/BMI: Height 1.83 m Weight 84 kg Body Mass Index 25.2 - Constitutional Present: no acute distress, well nourished, well developed - Routine HEENT Exam Eye: Present: EOMI ENT: Present: mucous membranes moist, dentition normal - Routine Respiratory Exam Present: diminished air movement. Absent: wheezes - Routine Cardiovascular Exam Present: RRR, S1, S2. Absent: murmur - Routine Abdominal Exam Present: soft, normoactive bowel sounds, non distended. Absent: tenderness - Routine Extremities Exam Present: edema (trace BLE), normal capillary refill - Routine Skin Exam Present: intact, dry, warm - Routine Neurological Exam Present: alert, oriented X3, CN II-XII intact - Routine Lymphatic Exam Lymphatic: Absent: adenopathy - Routine Psychiatric Exam Present: cooperative Results - Labs CBC & Chem 7: 06/30/18 07:40 06/30/18 07:40 Microbiology Results: Microbiology 06/27/18 02:08 Peripheral/Iv Start Blood Culture - Preliminary No Growth After 3 Days 06/27/18 02:10 Peripheral/Iv Start Blood Culture - Preliminary No Growth After 3 Days 06/27/18 08:12 Urine Legionella Urinary Antigen - Final Assessment and Plan (1) Pneumonia Current visit: Yes Status: Acute (2) Acute respiratory failure with hypoxia Current visit: Yes Status: Acute Assessment and Plan: Assessment: Acute hypoxemic respiratory failure Sepsis from aspiration pneumonia, concern for HCAP Nonsustained PACs, PSVT noted on telemetry. 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, status post excision BPH Dementia History of TIAs History of benign colonic polyps Diverticulosis Plan: Remains on cefepime and Levaquin for antimicrobial coverage Leukocytosis continues to improve Wbc-11.8 today Chest x-ray revels mild-moderate edema with RLL infiltrate Continue on mechanical soft diet with nectar thickened liquids- concern for aspiration Work on weaning down oxygen as able Potassium replaced orally this morning- will recheck BMP tomorrow Bilirubin continues to be elevated at 2.5, Encourage him to be up in the chair for meals DVT Prophylaxis: SCD's, Lovenox GI Prophylaxis: Protonix Resuscitation Status: Full Code - Physician Narrative Physician: Vonda Delvalle MD Narrative: Date: 06/30/18 Time: 2229 I have independently evaluated and examined this patient. I reviewed the chart, the patient's history, and the TRA[employer]/PA's documented findings as above. We discussed and formulated the assessment and plan as above with additions as below: Mr. Ring denied dyspnea or cough when seen this afternoon but remains on oxygen at 5-6 L to maintain saturations of 89-93%. Patient provides minimal history. Chest x-ray today reveals increasing right upper lobe lobe infiltrate by my review, persistent left infiltrate. Exam demonstrates crackles one third of the way up bilateral posterior lung conn respirations are nonlabored; patient is pleasantly confused and cooperative. Unconjugated hyperbilirubinemia, potassium being supplemented orally today. Intermittent aspiration suspected based on sporadic fever; chest x-ray consistent with repeat aspiration-converted from cefepime to Zosyn for added anaerobic coverage. Continues to require significant respiratory support. Ongoing work with speech therapy. Lasix given this morning following initial potassium supplementation. Nursing provide supplemental history. PT/OT consulted as well for generalized strengthening. Discussed with daughter to update on status. Hospital Course Summary Disclaimer: The visit summary below is not to be considered part of the above Progress Note. Hospital Course: 06/27/2018 Patient status post 1 L IV normal saline bolus provided in the emergency room. Cautious IV fluids normal saline at 50 mL per hour. Awaiting results of blood culture 2, Legionella urinary antigen. Antibiotic coverage with IV cefepime 1 g every 6 hours, IV Levaquin 500 mg daily and IV vancomycin as per pharmacy dosing. DuoNeb 3 mL nebulization treatment every 6 hours scheduled and every 2 hours as needed for wheezing or shortness of breath. Continue home medication aspirin, Aricept, Proscar, Synthroid, Namenda, sertraline, Florinef. Plan tests restart home medication amlodipine 5 mg and lisinopril 10 mg from tomorrow based on patient's blood pressures. Lovenox 40 mg subcutaneous at bedtime. RT consulted. Patient has good oxygen saturations on 2 L by nasal cannula, will decrease to 1 L and plan to discontinue supplemental oxygen later this afternoon as tolerated. CBC with differential, CMP, mag, phosphorus ordered for tomorrow. 06/28/2018 Cautious IV fluids normal saline at 50 mL per hour. Antibiotic coverage with IV cefepime 1 g every 6 hours, IV Levaquin 500 mg daily and IV vancomycin as per pharmacy dosing. Serial EKGs did not demonstrate any acute ST/T changes. Troponin I 3 within normal limits. Patient started on metoprolol tartrate 12.5 mg by mouth twice a day. Continue home medication amlodipine 5 mg and lisinopril 10 mg from tomorrow based on patient's blood pressures. 06/29/18 Remains on cefepime, Levaquin, and vancomycin for pneumonia with healthcare pathogen exposure. Blood cultures negative at 48 hours-discontinue vancomycin. Intermittent low-grade fevers consistent with aspiration; remains on mechanical soft diet with nectar thickened liquids and is to be fully upright for all oral intake per speech therapy recommendations. Repeat chest x-ray in a.m., continues to require supplemental oxygen. Blood pressure higher today-on home regimen. Patient is on Florinef, for orthostatic hypotension documented during hospitalization in August 2017. Will permit supine blood pressures higher than typically accepted due to history of falls with orthostasis. Bilirubin noted to be modestly elevated at 2.1 on 06/28-remainder of liver enzymes normal at that time. Recheck in a.m. with fractionated bili. 06/30/18 Remains on cefepime and Levaquin for antimicrobial coverage; given worsening infiltrate right upper lobe cefepime converted to Zosyn. Leukocytosis continues to improve WbC-11.8 today Chest x-ray revels mild-moderate edema with RLL infiltrate; additional diuresis this a.m. Continue on mechanical soft diet with nectar thickened liquids- concern for aspiration Work on weaning down oxygen as able Potassium replaced orally this morning- will recheck BMP tomorrow Bilirubin continues to be elevated at 2.5, Encourage him to be up in the chair for meals
[2018-06-30 17:30] VITALS: BMI 25.1
[2018-06-30] MEDS: NS 1,000 ML IV SCH (20:05)
[2018-06-30] MEDS: DONEPEZIL 5 MG TABLET PO SCH ×3 (21:32→21:35)
[2018-06-30] MEDS: SERTRALINE 50 MG TABLET PO SCH (21:35)
[2018-06-30] MEDS: PIPERACILLIN/TAZOBACTAM 3.375 GM in NS 100 ML IV SCH (21:40)
[2018-06-30] MEDS: FUROSEMIDE 40 MG/4 ML INJECTION IVP SCH (21:50)
[2018-07-01] MEDS: PIPERACILLIN/TAZOBACTAM 3.375 GM in NS 100 ML IV SCH ×4 (02:10→21:42)
[2018-07-01] MEDS: NS 1,000 ML IV SCH (05:31)
[2018-07-01] MEDS: LEVOFLOXACIN PB 500 MG/100 ML BAG IV SCH (05:48)
[2018-07-01] MEDS: PANTOPRAZOLE 40 MG TABLET PO SCH (06:35)
[2018-07-01] MEDS: LEVOTHYROXINE 112 MCG TABLET PO SCH (06:36)
[2018-07-01] MEDS: ALBUTEROL/IPRATROPIUM 2.5mg-0.5mg/3ml NEB AEROSOL SCH ×4 (06:39→18:53)
[2018-07-01] MEDS: AMLODIPINE 5 MG TABLET PO SCH (08:54)
[2018-07-01] MEDS: LISINOPRIL 10 MG TABLET PO SCH (08:54)
[2018-07-01] MEDS: FUROSEMIDE 40 MG/4 ML INJECTION IVP SCH ×2 (08:54→14:31)
[2018-07-01] MEDS: FINASTERIDE 5 MG TABLET PO SCH (08:54)
[2018-07-01] MEDS: FLUDROCORTISONE 0.1 MG TABLET PO SCH (08:54)
[2018-07-01] MEDS: MEMANTINE 10 MG TABLET PO SCH ×2 (08:54→20:34)
[2018-07-01] MEDS: ASPIRIN *EC* 81 MG TABLET PO SCH (08:54)
[2018-07-01] MEDS: ENOXAPARIN 40 MG/0.4 ML INJECTION SQ SCH (08:55)
[2018-07-01] MEDS: LIDOCAINE 1% 2ml INJ 10 MG, POTASSIUM CHLORIDE INJ 10 MEQ in NS 100 ML IV SCH ×8 (10:01→20:33)
--- NOTE | 2018-07-01 15:50 | Progress Note ---
- Date 07/01/18 Subjective: Parrish is seen today while resting in bed, watching TV. He reports that he is feeling better today, though does admit to some generalized abdominal discomfort. He denies any chest pain, shortness of breath, nausea or vomiting. He feels like his breathing has improved and is currently on 3L SAO2 to maintain his stats. He states that his appetite is not that great but his bowels are moving. Objective Vital signs: Temperature 97.6 F 07/01/18 14:31 Pulse Rate 79 07/01/18 14:31 Respiratory Rate 20 07/01/18 15:04 Blood Pressure 126/71 07/01/18 14:31 Pulse Oximetry 92 07/01/18 15:04 Cardiac Ectopy: Occasional PVC's Height/Weight/BMI: Height 6 ft Weight 180 lb 8.937 oz Body Mass Index 25.1 Comments: Resting in bed, watching TV on 3L NC. - Constitutional Present: no acute distress, well developed, cooperative - Routine HEENT Exam Head: Present: normocephalic, atraumatic Eye: Present: PERRL. Absent: conjunctival icterus ENT: Present: mucous membranes moist, oropharynx clear - Routine Respiratory Exam Present: decreased breath sounds. Absent: respiratory distress, wheezes Comments: No cough - Routine Cardiovascular Exam Present: S1, S2 - Routine Abdominal Exam Present: soft, distended Comments: No pain or tenderness with palpation. Hypoactive bowel sounds. - Routine Extremities Exam Present: no edema, pulses intact - Routine Musculoskeletal Exam Musculoskeletal: Present: moving extremities well - Routine Skin Exam Present: dry, warm Comments: Afebrile. - Routine Neurological Exam Present: alert, moving all extremities, hearing grossly intact, normal speech - Routine Lymphatic Exam Lymphatic: Absent: lymphedema - Routine Psychiatric Exam Present: cooperative Results - Labs CBC & Chem 7: 07/01/18 04:20 07/01/18 16:05 Labs: WBC 11.6. K+ 2.8 - replaced orally. BNP elevated at 4290. Microbiology Results: Microbiology 06/27/18 02:10 Peripheral/Iv Start Blood Culture - Preliminary No Growth After 4 Days 06/27/18 02:08 Peripheral/Iv Start Blood Culture - Preliminary No Growth After 4 Days 06/27/18 08:12 Urine Legionella Urinary Antigen - Final Assessment and Plan (1) Pneumonia Current visit: Yes Status: Acute (2) Acute respiratory failure with hypoxia Current visit: Yes Status: Acute Assessment and Plan: Assessment: Acute hypoxemic respiratory failure Sepsis from aspiration pneumonia, concern for HCAP Nonsustained PACs, PSVT noted on telemetry. Unconjugated hyperbilirubinemia. Hypokalemia. 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 Blood cultures remain negative x 4 days. CXR in 06/30 consistent with repeat aspiration. Cefepime changed to Zosyn. Continue Zosyn and Levaquin for antimicrobial coverage. Oxygen decreased to 3L following diuresis. Continue respiratory support, weaning oxygen as able. Continue on mechanical soft diet with nectar thickened liquids- concern for aspiration. Ongoing work with speech therapy. Encourage him to be up in the chair for meals Potassium replaced orally. Recheck labs at 1600 today. Encourage participation in therapies. Recheck labs in AM to monitor blood counts, electrolytes and renal function. DVT Prophylaxis: SCD's, Lovenox Resuscitation Status: Full Code - Time spent with patient Time with patient PN: 30 minutes - Physician Narrative Physician: Vonda Delvalle MD Narrative: Date: 07/01/18 Time: 2314 I have independently evaluated and examined this patient. I reviewed the chart, the patient's history, and the [employer] MGR/PA's documented findings as above. We discussed and formulated the assessment and plan as above with additions as below: Mr. Ring reports he is not coughing or short of breath as he was earlier in the hospitalization. He reports he didn't get much sleep because peed all night. NAD, pleasantly confused Respirations nonlabored with good airflow crackles 1/3 up right posterior lung field but left is improved from yesterday with minimal crackles audible. No wheezing Aggressive potassium replacement today IV/by mouth Continue diuresis; repeat chest x-ray in a.m. Check orthostatics, discontinue IV fluids. Days 6 antibiotics. Hospital Course Summary Disclaimer: The visit summary below is not to be considered part of the above Progress Note. Hospital Course: 06/27/2018 Patient status post 1 L IV normal saline bolus provided in the emergency room. Cautious IV fluids normal saline at 50 mL per hour. Awaiting results of blood culture 2, Legionella urinary antigen. Antibiotic coverage with IV cefepime 1 g every 6 hours, IV Levaquin 500 mg daily and IV vancomycin as per pharmacy dosing. DuoNeb 3 mL nebulization treatment every 6 hours scheduled and every 2 hours as needed for wheezing or shortness of breath. Continue home medication aspirin, Aricept, Proscar, Synthroid, Namenda, sertraline, Florinef. Plan tests restart home medication amlodipine 5 mg and lisinopril 10 mg from tomorrow based on patient's blood pressures. Lovenox 40 mg subcutaneous at bedtime. RT consulted. Patient has good oxygen saturations on 2 L by nasal cannula, will decrease to 1 L and plan to discontinue supplemental oxygen later this afternoon as tolerated. CBC with differential, CMP, mag, phosphorus ordered for tomorrow. 06/28/2018 Cautious IV fluids normal saline at 50 mL per hour. Antibiotic coverage with IV cefepime 1 g every 6 hours, IV Levaquin 500 mg daily and IV vancomycin as per pharmacy dosing. Serial EKGs did not demonstrate any acute ST/T changes. Troponin I 3 within normal limits. Patient started on metoprolol tartrate 12.5 mg by mouth twice a day. Continue home medication amlodipine 5 mg and lisinopril 10 mg from tomorrow based on patient's blood pressures. 06/29/18 Remains on cefepime, Levaquin, and vancomycin for pneumonia with healthcare pathogen exposure. Blood cultures negative at 48 hours-discontinue vancomycin. Intermittent low-grade fevers consistent with aspiration; remains on mechanical soft diet with nectar thickened liquids and is to be fully upright for all oral intake per speech therapy recommendations. Repeat chest x-ray in a.m., continues to require supplemental oxygen. Blood pressure higher today-on home regimen. Patient is on Florinef, for orthostatic hypotension documented during hospitalization in August 2017. Will permit supine blood pressures higher than typically accepted due to history of falls with orthostasis. Bilirubin noted to be modestly elevated at 2.1 on 06/28-remainder of liver enzymes normal at that time. Recheck in a.m. with fractionated bili. 06/30/18 Remains on cefepime and Levaquin for antimicrobial coverage; given worsening infiltrate right upper lobe cefepime converted to Zosyn. Leukocytosis continues to improve WbC-11.8 today Chest x-ray revels mild-moderate edema with RLL infiltrate; additional diuresis this a.m. Continue on mechanical soft diet with nectar thickened liquids- concern for aspiration Work on weaning down oxygen as able Potassium replaced orally this morning- will recheck BMP tomorrow Bilirubin continues to be elevated at 2.5, Encourage him to be up in the chair for meals 07/01/18 Intermittent aspiration suspected based on sporadic fever and persistent leukocytosis (WBC 11.6). Blood cultures remain negative x 4 days. CXR in 06/30 consistent with repeat aspiration. Cefepime changed to Zosyn. Continue Zosyn and Levaquin for antimicrobial coverage. Oxygen decreased to 3L following diuresis. Continue respiratory support, weaning oxygen as able. Continue on mechanical soft diet with nectar thickened liquids- concern for aspiration. Ongoing work with speech therapy. Encourage him to be up in the chair for meals Potassium replaced orally. Recheck labs at 1600 today. Encourage participation in therapies. Recheck labs in AM to monitor blood counts, electrolytes and renal function.
[2018-07-01] MEDS: ACETAMINOPHEN 325 MG TABLET PO PRN (20:33)
[2018-07-01] MEDS: SERTRALINE 50 MG TABLET PO SCH (20:34)
[2018-07-01] MEDS: DONEPEZIL 5 MG TABLET PO SCH (20:34)
[2018-07-02] MEDS: SALINE FLUSH 10ml SYRINGE IVF PRN ×2 (01:11→20:22)
[2018-07-02] MEDS: PIPERACILLIN/TAZOBACTAM 3.375 GM in NS 100 ML IV SCH ×4 (01:11→20:21)
[2018-07-02] MEDS: LEVOFLOXACIN PB 500 MG/100 ML BAG IV SCH (05:25)
[2018-07-02] MEDS: PANTOPRAZOLE 40 MG TABLET PO SCH (06:47)
[2018-07-02] MEDS: LEVOTHYROXINE 112 MCG TABLET PO SCH (06:48)
[2018-07-02] MEDS: ALBUTEROL/IPRATROPIUM 2.5mg-0.5mg/3ml NEB AEROSOL SCH ×4 (07:20→19:53)
[2018-07-02] MEDS: FINASTERIDE 5 MG TABLET PO SCH (08:36)
[2018-07-02] MEDS: AMLODIPINE 5 MG TABLET PO SCH (08:36)
[2018-07-02] MEDS: MEMANTINE 10 MG TABLET PO SCH ×2 (08:36→20:48)
[2018-07-02] MEDS: LISINOPRIL 10 MG TABLET PO SCH (08:37)
[2018-07-02] MEDS: ASPIRIN *EC* 81 MG TABLET PO SCH (08:37)
[2018-07-02] MEDS: FUROSEMIDE 40 MG/4 ML INJECTION IVP SCH ×2 (08:37→13:59)
[2018-07-02] MEDS: FLUDROCORTISONE 0.1 MG TABLET PO SCH (08:37)
[2018-07-02] MEDS: ENOXAPARIN 40 MG/0.4 ML INJECTION SQ SCH (08:37)
--- NOTE | 2018-07-02 09:29 | XRay Report ---
INDICATION: pneumonia/CHF PROCEDURE: CHEST 2-VIEWS UPRIGHT (PA & LAT) Encounter: Initial COMPARISON: June 30, 2018 FINDINGS: Aeration of the right upper lobe has improved. Interstitial prominence remains. Small effusions. No pneumothorax. Heart size and mediastinal contours are stable. Pulmonary vascular markings remain increased. Impression: Improving right upper lobe airspace disease with persistent mild congestive failure. .
[2018-07-02] MEDS ORDERED: FALL RISK - PHARMACY CONSULT MC ONE (09:48)
--- NOTE | 2018-07-02 16:05 | Progress Note ---
- Date 07/02/18 Subjective: Resting comfortably. Family present. Denies soa. Says he is not having stomach pain or upset. About to work with speech. Still not much appetite. Objective Vital signs: Temperature 97.6 F 07/02/18 07:43 Pulse Rate 89 07/02/18 08:25 Respiratory Rate 20 07/02/18 15:26 Blood Pressure 140/73 H 07/02/18 08:25 Pulse Oximetry 92 07/02/18 15:26 Cardiac Ectopy: Occasional PVC's Height/Weight/BMI: Height 6 ft Weight 81.8 kg Body Mass Index 25.1 - Constitutional Present: no acute distress - Routine HEENT Exam Head: Present: normocephalic, atraumatic Eye: Present: EOMI, PERRL ENT: Present: mucous membranes moist - Routine Respiratory Exam Present: CTA bilaterally - Routine Cardiovascular Exam Present: RRR, S1, S2 - Routine Extremities Exam Present: no edema - Routine Neurological Exam Present: alert, moving all extremities Results - Labs CBC & Chem 7: 07/02/18 04:08 07/02/18 04:08 Microbiology Results: Microbiology 06/27/18 02:10 Peripheral/Iv Start Blood Culture - Final No Growth After 5 Days 06/27/18 02:08 Peripheral/Iv Start Blood Culture - Final No Growth After 5 Days 06/27/18 08:12 Urine Legionella Urinary Antigen - Final Assessment and Plan (1) Pneumonia Current visit: Yes Status: Acute (2) Acute respiratory failure with hypoxia Current visit: Yes Status: Acute Assessment and Plan: Assessment: Acute hypoxemic respiratory failure Sepsis from aspiration pneumonia, concern for HCAP Nonsustained PACs, PSVT noted on telemetry. Unconjugated hyperbilirubinemia. Hypokalemia. 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 Blood cultures remain negative x 5 days. CXR in 06/30 consistent with repeat aspiration. Cefepime changed to Zosyn. Continue Zosyn and Levaquin for antimicrobial coverage. Oxygen decreased to 3L following diuresis. Continue respiratory support, weaning oxygen as able. Continue on puree diet with nectar thickened liquids- concern for aspiration. Ongoing work with speech therapy. Encourage him to be up in the chair for meals Potassium up to 3.3. Increase to 20 tid and give additional 40 mEq. Recheck in AM. Encourage participation in therapies. Recheck labs in AM to monitor blood counts, electrolytes and renal function. DVT Prophylaxis: SCD's, Lovenox GI Prophylaxis: Protonix Resuscitation Status: Full Code - Physician Narrative Narrative: Date: 07/02/18 Time: 1558 Hospital Course Summary Disclaimer: The visit summary below is not to be considered part of the above Progress Note. Hospital Course: 06/27/2018 Patient status post 1 L IV normal saline bolus provided in the emergency room. Cautious IV fluids normal saline at 50 mL per hour. Awaiting results of blood culture 2, Legionella urinary antigen. Antibiotic coverage with IV cefepime 1 g every 6 hours, IV Levaquin 500 mg daily and IV vancomycin as per pharmacy dosing. DuoNeb 3 mL nebulization treatment every 6 hours scheduled and every 2 hours as needed for wheezing or shortness of breath. Continue home medication aspirin, Aricept, Proscar, Synthroid, Namenda, sertraline, Florinef. Plan tests restart home medication amlodipine 5 mg and lisinopril 10 mg from tomorrow based on patient's blood pressures. Lovenox 40 mg subcutaneous at bedtime. RT consulted. Patient has good oxygen saturations on 2 L by nasal cannula, will decrease to 1 L and plan to discontinue supplemental oxygen later this afternoon as tolerated. CBC with differential, CMP, mag, phosphorus ordered for tomorrow. 06/28/2018 Cautious IV fluids normal saline at 50 mL per hour. Antibiotic coverage with IV cefepime 1 g every 6 hours, IV Levaquin 500 mg daily and IV vancomycin as per pharmacy dosing. Serial EKGs did not demonstrate any acute ST/T changes. Troponin I 3 within normal limits. Patient started on metoprolol tartrate 12.5 mg by mouth twice a day. Continue home medication amlodipine 5 mg and lisinopril 10 mg from tomorrow based on patient's blood pressures. 06/29/18 Remains on cefepime, Levaquin, and vancomycin for pneumonia with healthcare pathogen exposure. Blood cultures negative at 48 hours-discontinue vancomycin. Intermittent low-grade fevers consistent with aspiration; remains on mechanical soft diet with nectar thickened liquids and is to be fully upright for all oral intake per speech therapy recommendations. Repeat chest x-ray in a.m., continues to require supplemental oxygen. Blood pressure higher today-on home regimen. Patient is on Florinef, for orthostatic hypotension documented during hospitalization in August 2017. Will permit supine blood pressures higher than typically accepted due to history of falls with orthostasis. Bilirubin noted to be modestly elevated at 2.1 on 06/28-remainder of liver enzymes normal at that time. Recheck in a.m. with fractionated bili. 06/30/18 Remains on cefepime and Levaquin for antimicrobial coverage; given worsening infiltrate right upper lobe cefepime converted to Zosyn. Leukocytosis continues to improve WbC-11.8 today Chest x-ray revels mild-moderate edema with RLL infiltrate; additional diuresis this a.m. Continue on mechanical soft diet with nectar thickened liquids- concern for aspiration Work on weaning down oxygen as able Potassium replaced orally this morning- will recheck BMP tomorrow Bilirubin continues to be elevated at 2.5, Encourage him to be up in the chair for meals 07/01/18 Intermittent aspiration suspected based on sporadic fever and persistent leukocytosis (WBC 11.6). Blood cultures remain negative x 4 days. CXR in 06/30 consistent with repeat aspiration. Cefepime changed to Zosyn. Continue Zosyn and Levaquin for antimicrobial coverage. Oxygen decreased to 3L following diuresis. Continue respiratory support, weaning oxygen as able. Continue on mechanical soft diet with nectar thickened liquids- concern for aspiration. Ongoing work with speech therapy. Encourage him to be up in the chair for meals Potassium replaced orally. Recheck labs at 1600 today. Encourage participation in therapies. Recheck labs in AM to monitor blood counts, electrolytes and renal function. 07/02 Intermittent aspiration suspected based on sporadic fever and persistent leukocytosis (WBC 11.1). Blood cultures remain negative x 5 days. CXR in 06/30 consistent with repeat aspiration. Cefepime changed to Zosyn. Continue Zosyn and Levaquin for antimicrobial coverage. Oxygen decreased to 3L following diuresis. Continue respiratory support, weaning oxygen as able. Continue on puree diet with nectar thickened liquids- concern for aspiration. Ongoing work with speech therapy. Encourage him to be up in the chair for meals Potassium up to 3.3. Increase to 20 tid and give additional 40 mEq. Recheck in AM. Encourage participation in therapies. Recheck labs in AM to monitor blood counts, electrolytes and renal function.
[2018-07-02] MEDS: SERTRALINE 50 MG TABLET PO SCH (20:47)
[2018-07-02] MEDS: DONEPEZIL 5 MG TABLET PO SCH (20:48)
[2018-07-03] MEDS: SALINE FLUSH 10ml SYRINGE IVF PRN (02:06)
[2018-07-03] MEDS: PIPERACILLIN/TAZOBACTAM 3.375 GM in NS 100 ML IV SCH ×4 (02:06→19:54)
[2018-07-03] MEDS: LEVOFLOXACIN PB 500 MG/100 ML BAG IV SCH (06:10)
[2018-07-03] MEDS: PANTOPRAZOLE 40 MG TABLET PO SCH (06:39)
[2018-07-03] MEDS: LEVOTHYROXINE 112 MCG TABLET PO SCH (06:39)
[2018-07-03] MEDS: ALBUTEROL/IPRATROPIUM 2.5mg-0.5mg/3ml NEB AEROSOL SCH ×4 (07:09→19:15)
[2018-07-03] MEDS: FUROSEMIDE 40 MG/4 ML INJECTION IVP SCH ×2 (08:30→14:44)
[2018-07-03] MEDS: AMLODIPINE 5 MG TABLET PO SCH (08:41)
[2018-07-03] MEDS: FLUDROCORTISONE 0.1 MG TABLET PO SCH (08:41)
[2018-07-03] MEDS: MEMANTINE 10 MG TABLET PO SCH ×2 (08:42→20:29)
[2018-07-03] MEDS: ASPIRIN *EC* 81 MG TABLET PO SCH (08:42)
[2018-07-03] MEDS: LISINOPRIL 10 MG TABLET PO SCH (08:42)
[2018-07-03] MEDS: FINASTERIDE 5 MG TABLET PO SCH (08:43)
[2018-07-03] MEDS: ENOXAPARIN 40 MG/0.4 ML INJECTION SQ SCH (08:43)
--- NOTE | 2018-07-03 14:21 | Progress Note ---
- Date 07/03/18 Subjective: Just worked with speech. He is not eating much and required assistance. He does not have much appetite. He thinks his breathing is OK. Occasional cough. Objective Vital signs: Temperature 99.7 F 07/03/18 12:32 Pulse Rate 70 07/03/18 12:34 Respiratory Rate 18 07/03/18 14:11 Blood Pressure 122/67 07/03/18 12:34 Pulse Oximetry 94 07/03/18 14:11 Cardiac Ectopy: Occasional PVC's Height/Weight/BMI: Height 6 ft Weight 81.7 kg Body Mass Index 25.1 - Constitutional Present: no acute distress - Routine HEENT Exam Head: Present: normocephalic, atraumatic Eye: Present: EOMI, PERRL ENT: Present: mucous membranes moist - Routine Respiratory Exam Present: CTA bilaterally - Routine Cardiovascular Exam Present: RRR, S1, S2 - Routine Abdominal Exam Present: soft, normoactive bowel sounds, non distended, non tender - Routine Extremities Exam Present: no edema - Routine Neurological Exam Present: alert, moving all extremities, normal speech Results - Labs CBC & Chem 7: 07/02/18 04:08 07/02/18 04:08 Microbiology Results: Microbiology 06/27/18 02:10 Peripheral/Iv Start Blood Culture - Final No Growth After 5 Days 06/27/18 02:08 Peripheral/Iv Start Blood Culture - Final No Growth After 5 Days 06/27/18 08:12 Urine Legionella Urinary Antigen - Final Assessment and Plan (1) Pneumonia Current visit: Yes Status: Acute (2) Acute respiratory failure with hypoxia Current visit: Yes Status: Acute Assessment and Plan: Assessment: Acute hypoxemic respiratory failure Sepsis from aspiration pneumonia, concern for HCAP Nonsustained PACs, PSVT noted on telemetry. Unconjugated hyperbilirubinemia. Hypokalemia. 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 Blood cultures negative. CXR in 06/30 consistent with repeat aspiration. Cefepime changed to Zosyn. Continue Zosyn and Levaquin for antimicrobial coverage. Oxygen decreased to 3.5L following diuresis. Continue respiratory support, weaning oxygen as able. Continue on puree diet with nectar thickened liquids - concern for aspiration. Ongoing work with speech therapy. Encourage him to be up in the chair for meals Encourage participation in therapies. Recheck labs in AM to monitor blood counts, electrolytes and renal function. DVT Prophylaxis: SCD's, Lovenox GI Prophylaxis: Protonix Resuscitation Status: Full Code - Physician Narrative Narrative: Date: 07/03/18 Time: 1417 Hospital Course Summary Disclaimer: The visit summary below is not to be considered part of the above Progress Note. Hospital Course: 06/27/2018 Patient status post 1 L IV normal saline bolus provided in the emergency room. Cautious IV fluids normal saline at 50 mL per hour. Awaiting results of blood culture 2, Legionella urinary antigen. Antibiotic coverage with IV cefepime 1 g every 6 hours, IV Levaquin 500 mg daily and IV vancomycin as per pharmacy dosing. DuoNeb 3 mL nebulization treatment every 6 hours scheduled and every 2 hours as needed for wheezing or shortness of breath. Continue home medication aspirin, Aricept, Proscar, Synthroid, Namenda, sertraline, Florinef. Plan tests restart home medication amlodipine 5 mg and lisinopril 10 mg from tomorrow based on patient's blood pressures. Lovenox 40 mg subcutaneous at bedtime. RT consulted. Patient has good oxygen saturations on 2 L by nasal cannula, will decrease to 1 L and plan to discontinue supplemental oxygen later this afternoon as tolerated. CBC with differential, CMP, mag, phosphorus ordered for tomorrow. 06/28/2018 Cautious IV fluids normal saline at 50 mL per hour. Antibiotic coverage with IV cefepime 1 g every 6 hours, IV Levaquin 500 mg daily and IV vancomycin as per pharmacy dosing. Serial EKGs did not demonstrate any acute ST/T changes. Troponin I 3 within normal limits. Patient started on metoprolol tartrate 12.5 mg by mouth twice a day. Continue home medication amlodipine 5 mg and lisinopril 10 mg from tomorrow based on patient's blood pressures. 06/29/18 Remains on cefepime, Levaquin, and vancomycin for pneumonia with healthcare pathogen exposure. Blood cultures negative at 48 hours-discontinue vancomycin. Intermittent low-grade fevers consistent with aspiration; remains on mechanical soft diet with nectar thickened liquids and is to be fully upright for all oral intake per speech therapy recommendations. Repeat chest x-ray in a.m., continues to require supplemental oxygen. Blood pressure higher today-on home regimen. Patient is on Florinef, for orthostatic hypotension documented during hospitalization in August 2017. Will permit supine blood pressures higher than typically accepted due to history of falls with orthostasis. Bilirubin noted to be modestly elevated at 2.1 on 06/28-remainder of liver enzymes normal at that time. Recheck in a.m. with fractionated bili. 06/30/18 Remains on cefepime and Levaquin for antimicrobial coverage; given worsening infiltrate right upper lobe cefepime converted to Zosyn. Leukocytosis continues to improve WbC-11.8 today Chest x-ray revels mild-moderate edema with RLL infiltrate; additional diuresis this a.m. Continue on mechanical soft diet with nectar thickened liquids- concern for aspiration Work on weaning down oxygen as able Potassium replaced orally this morning- will recheck BMP tomorrow Bilirubin continues to be elevated at 2.5, Encourage him to be up in the chair for meals 07/01/18 Intermittent aspiration suspected based on sporadic fever and persistent leukocytosis (WBC 11.6). Blood cultures remain negative x 4 days. CXR in 06/30 consistent with repeat aspiration. Cefepime changed to Zosyn. Continue Zosyn and Levaquin for antimicrobial coverage. Oxygen decreased to 3L following diuresis. Continue respiratory support, weaning oxygen as able. Continue on mechanical soft diet with nectar thickened liquids- concern for aspiration. Ongoing work with speech therapy. Encourage him to be up in the chair for meals Potassium replaced orally. Recheck labs at 1600 today. Encourage participation in therapies. Recheck labs in AM to monitor blood counts, electrolytes and renal function. 07/02 Intermittent aspiration suspected based on sporadic fever and persistent leukocytosis (WBC 11.1). Blood cultures remain negative x 5 days. CXR in 06/30 consistent with repeat aspiration. Cefepime changed to Zosyn. Continue Zosyn and Levaquin for antimicrobial coverage. Oxygen decreased to 3L following diuresis. Continue respiratory support, weaning oxygen as able. Continue on puree diet with nectar thickened liquids- concern for aspiration. Ongoing work with speech therapy. Encourage him to be up in the chair for meals Potassium up to 3.3. Increase to 20 tid and give additional 40 mEq. Recheck in AM. Encourage participation in therapies. Recheck labs in AM to monitor blood counts, electrolytes and renal function. 07/03 Intermittent aspiration suspected based on sporadic fever and persistent leukocytosis (WBC 11.1). Blood cultures negative. CXR in 06/30 consistent with repeat aspiration. Cefepime changed to Zosyn. Continue Zosyn and Levaquin for antimicrobial coverage. Oxygen decreased to 3.5L following diuresis. Continue respiratory support, weaning oxygen as able. Continue on puree diet with nectar thickened liquids - concern for aspiration. Ongoing work with speech therapy. Encourage him to be up in the chair for meals Encourage participation in therapies. Recheck labs in AM to monitor blood counts, electrolytes and renal function.
[2018-07-03] MEDS: D5W IV SCH (17:22)
[2018-07-03] MEDS: KCL IV SCH (17:22)
[2018-07-03] MEDS: DONEPEZIL 5 MG TABLET PO SCH (20:29)
[2018-07-03] MEDS: SERTRALINE 50 MG TABLET PO SCH (20:29)
[2018-07-04] MEDS: PIPERACILLIN/TAZOBACTAM 3.375 GM in NS 100 ML IV SCH ×4 (01:37→20:55)
[2018-07-04] MEDS: LEVOFLOXACIN PB 500 MG/100 ML BAG IV SCH (05:57)
[2018-07-04] MEDS: PANTOPRAZOLE 40 MG TABLET PO SCH (06:04)
[2018-07-04] MEDS: LEVOTHYROXINE 112 MCG TABLET PO SCH (06:04)
[2018-07-04] MEDS: ALBUTEROL/IPRATROPIUM 2.5mg-0.5mg/3ml NEB AEROSOL SCH ×4 (07:48→19:51)
[2018-07-04] MEDS: D5W IV SCH (08:34)
[2018-07-04] MEDS: KCL IV SCH (08:34)
[2018-07-04] MEDS: LISINOPRIL 10 MG TABLET PO SCH (10:30)
[2018-07-04] MEDS: FLUDROCORTISONE 0.1 MG TABLET PO SCH (10:30)
[2018-07-04] MEDS: FINASTERIDE 5 MG TABLET PO SCH (10:30)
[2018-07-04] MEDS: MEMANTINE 10 MG TABLET PO SCH ×2 (10:31→20:54)
[2018-07-04] MEDS: ASPIRIN *EC* 81 MG TABLET PO SCH (10:31)
[2018-07-04] MEDS: AMLODIPINE 5 MG TABLET PO SCH (10:31)
[2018-07-04] MEDS: ENOXAPARIN 40 MG/0.4 ML INJECTION SQ SCH (10:35)
[2018-07-04] MEDS: FUROSEMIDE 40 MG/4 ML INJECTION IVP SCH ×2 (10:36→15:31)
[2018-07-04] MEDS ORDERED: ONDANSETRON 4 MG/2 ML INJECTION IVP PRN (13:57)
--- NOTE | 2018-07-04 14:04 | Progress Note ---
- Date 07/04/18 Subjective: Patient resting comfortably in bed. Says he has had some nausea. Thinks it might have been after a coughing spell. No nausea at this time. He denies chest pain or soa. He has ambulated in the [place] today. Daughter present. Appetite still not very good. He is open to an appetite stimulant. Objective Vital signs: Temperature 99 F 07/04/18 08:16 Pulse Rate 75 07/04/18 08:25 Respiratory Rate 16 07/04/18 11:07 Blood Pressure 132/77 07/04/18 08:25 Pulse Oximetry 92 07/04/18 11:07 Cardiac Ectopy: Occasional PVC's Height/Weight/BMI: Height 6 ft Weight 81.1 kg Body Mass Index 25.1 - Constitutional Present: no acute distress - Routine HEENT Exam Head: Present: normocephalic, atraumatic Eye: Present: EOMI, PERRL - Routine Cardiovascular Exam Present: RRR, S1, S2 - Routine Abdominal Exam Present: soft, normoactive bowel sounds, non distended, non tender - Routine Neurological Exam Present: alert - Routine Psychiatric Exam Present: normal affect Results - Labs CBC & Chem 7: 07/04/18 04:10 07/04/18 04:10 Microbiology Results: Microbiology 06/27/18 02:10 Peripheral/Iv Start Blood Culture - Final No Growth After 5 Days 06/27/18 02:08 Peripheral/Iv Start Blood Culture - Final No Growth After 5 Days 06/27/18 08:12 Urine Legionella Urinary Antigen - Final Assessment and Plan (1) Pneumonia Current visit: Yes Status: Acute (2) Acute respiratory failure with hypoxia Current visit: Yes Status: Acute Assessment and Plan: Assessment: Acute hypoxemic respiratory failure Sepsis from aspiration pneumonia, concern for HCAP Nonsustained PACs, PSVT noted on telemetry. Unconjugated hyperbilirubinemia. Hypokalemia. 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 Blood cultures negative. CXR in 06/30 consistent with repeat aspiration. Cefepime changed to Zosyn. Continue Zosyn and Levaquin for antimicrobial coverage through 07/05. Oxygen azucena 4L. Continue respiratory support, weaning oxygen as able. Continue on puree diet with nectar thickened liquids - concern for aspiration. Ongoing work with speech therapy. Trial of Megace for his appetite. Goals of care d/w patient and daughter and he wants to try to get better. Encourage him to be up in the chair for meals Encourage participation in therapies. Lab reviewed and Na improved on D5. Will dc fluids. K low again. Will give extra doses of K today and increase his scheduled K. Recheck labs in AM to monitor blood counts, electrolytes and renal function. DVT Prophylaxis: SCD's, Lovenox GI Prophylaxis: Protonix Resuscitation Status: Full Code - Physician Narrative Narrative: Date: 07/04/18 Time: 1355 Hospital Course Summary Disclaimer: The visit summary below is not to be considered part of the above Progress Note. Hospital Course: 06/27/2018 Patient status post 1 L IV normal saline bolus provided in the emergency room. Cautious IV fluids normal saline at 50 mL per hour. Awaiting results of blood culture 2, Legionella urinary antigen. Antibiotic coverage with IV cefepime 1 g every 6 hours, IV Levaquin 500 mg daily and IV vancomycin as per pharmacy dosing. DuoNeb 3 mL nebulization treatment every 6 hours scheduled and every 2 hours as needed for wheezing or shortness of breath. Continue home medication aspirin, Aricept, Proscar, Synthroid, Namenda, sertraline, Florinef. Plan tests restart home medication amlodipine 5 mg and lisinopril 10 mg from tomorrow based on patient's blood pressures. Lovenox 40 mg subcutaneous at bedtime. RT consulted. Patient has good oxygen saturations on 2 L by nasal cannula, will decrease to 1 L and plan to discontinue supplemental oxygen later this afternoon as tolerated. CBC with differential, CMP, mag, phosphorus ordered for tomorrow. 06/28/2018 Cautious IV fluids normal saline at 50 mL per hour. Antibiotic coverage with IV cefepime 1 g every 6 hours, IV Levaquin 500 mg daily and IV vancomycin as per pharmacy dosing. Serial EKGs did not demonstrate any acute ST/T changes. Troponin I 3 within normal limits. Patient started on metoprolol tartrate 12.5 mg by mouth twice a day. Continue home medication amlodipine 5 mg and lisinopril 10 mg from tomorrow based on patient's blood pressures. 06/29/18 Remains on cefepime, Levaquin, and vancomycin for pneumonia with healthcare pathogen exposure. Blood cultures negative at 48 hours-discontinue vancomycin. Intermittent low-grade fevers consistent with aspiration; remains on mechanical soft diet with nectar thickened liquids and is to be fully upright for all oral intake per speech therapy recommendations. Repeat chest x-ray in a.m., continues to require supplemental oxygen. Blood pressure higher today-on home regimen. Patient is on Florinef, for orthostatic hypotension documented during hospitalization in August 2017. Will permit supine blood pressures higher than typically accepted due to history of falls with orthostasis. Bilirubin noted to be modestly elevated at 2.1 on 06/28-remainder of liver enzymes normal at that time. Recheck in a.m. with fractionated bili. 06/30/18 Remains on cefepime and Levaquin for antimicrobial coverage; given worsening infiltrate right upper lobe cefepime converted to Zosyn. Leukocytosis continues to improve WbC-11.8 today Chest x-ray revels mild-moderate edema with RLL infiltrate; additional diuresis this a.m. Continue on mechanical soft diet with nectar thickened liquids- concern for aspiration Work on weaning down oxygen as able Potassium replaced orally this morning- will recheck BMP tomorrow Bilirubin continues to be elevated at 2.5, Encourage him to be up in the chair for meals 07/01/18 Intermittent aspiration suspected based on sporadic fever and persistent leukocytosis (WBC 11.6). Blood cultures remain negative x 4 days. CXR in 06/30 consistent with repeat aspiration. Cefepime changed to Zosyn. Continue Zosyn and Levaquin for antimicrobial coverage. Oxygen decreased to 3L following diuresis. Continue respiratory support, weaning oxygen as able. Continue on mechanical soft diet with nectar thickened liquids- concern for aspiration. Ongoing work with speech therapy. Encourage him to be up in the chair for meals Potassium replaced orally. Recheck labs at 1600 today. Encourage participation in therapies. Recheck labs in AM to monitor blood counts, electrolytes and renal function. 07/02 Intermittent aspiration suspected based on sporadic fever and persistent leukocytosis (WBC 11.1). Blood cultures remain negative x 5 days. CXR in 06/30 consistent with repeat aspiration. Cefepime changed to Zosyn. Continue Zosyn and Levaquin for antimicrobial coverage. Oxygen decreased to 3L following diuresis. Continue respiratory support, weaning oxygen as able. Continue on puree diet with nectar thickened liquids- concern for aspiration. Ongoing work with speech therapy. Encourage him to be up in the chair for meals Potassium up to 3.3. Increase to 20 tid and give additional 40 mEq. Recheck in AM. Encourage participation in therapies. Recheck labs in AM to monitor blood counts, electrolytes and renal function. 07/03 Intermittent aspiration suspected based on sporadic fever and persistent leukocytosis (WBC 11.1). Blood cultures negative. CXR in 06/30 consistent with repeat aspiration. Cefepime changed to Zosyn. Continue Zosyn and Levaquin for antimicrobial coverage. Oxygen decreased to 3.5L following diuresis. Continue respiratory support, weaning oxygen as able. Continue on puree diet with nectar thickened liquids - concern for aspiration. Ongoing work with speech therapy. Encourage him to be up in the chair for meals Encourage participation in therapies. Recheck labs in AM to monitor blood counts, electrolytes and renal function. 07/04 Intermittent aspiration suspected based on sporadic fever and persistent leukocytosis (WBC 11.1). Blood cultures negative. CXR in 06/30 consistent with repeat aspiration. Cefepime changed to Zosyn. Continue Zosyn and Levaquin for antimicrobial coverage through 07/05. Oxygen azucena 4L. Continue respiratory support, weaning oxygen as able. Continue on puree diet with nectar thickened liquids - concern for aspiration. Ongoing work with speech therapy. Trial of Megace for his appetite. Goals of care d/w patient and daughter and he wants to try to get better. Encourage him to be up in the chair for meals Encourage participation in therapies. Lab reviewed and Na improved on D5. Will dc fluids. K low again. Will give extra doses of K today and increase his scheduled K. Recheck labs in AM to monitor blood counts, electrolytes and renal function.
[2018-07-04] MEDS: SERTRALINE 50 MG TABLET PO SCH (20:54)
[2018-07-04] MEDS: DONEPEZIL 5 MG TABLET PO SCH (20:54)
[2018-07-04] MEDS ORDERED: NS FLUSH BAG 500ml IV PRN (21:49)
[2018-07-05] MEDS: PIPERACILLIN/TAZOBACTAM 3.375 GM in NS 100 ML IV SCH ×4 (02:06→20:07)
[2018-07-05] MEDS: LEVOTHYROXINE 112 MCG TABLET PO SCH (05:41)
[2018-07-05] MEDS: PANTOPRAZOLE 40 MG TABLET PO SCH (05:41)
[2018-07-05] MEDS: LEVOFLOXACIN PB 500 MG/100 ML BAG IV SCH (05:41)
[2018-07-05] MEDS: ALBUTEROL/IPRATROPIUM 2.5mg-0.5mg/3ml NEB AEROSOL SCH ×4 (07:32→20:28)
[2018-07-05] MEDS: LISINOPRIL 10 MG TABLET PO SCH (08:37)
[2018-07-05] MEDS: FINASTERIDE 5 MG TABLET PO SCH (08:38)
[2018-07-05] MEDS: ASPIRIN *EC* 81 MG TABLET PO SCH (08:38)
[2018-07-05] MEDS: MEMANTINE 10 MG TABLET PO SCH ×2 (08:39→20:07)
[2018-07-05] MEDS: AMLODIPINE 5 MG TABLET PO SCH (08:41)
[2018-07-05] MEDS: FLUDROCORTISONE 0.1 MG TABLET PO SCH (08:41)
[2018-07-05] MEDS: FUROSEMIDE 40 MG/4 ML INJECTION IVP SCH ×2 (08:43→13:21)
[2018-07-05] MEDS: ENOXAPARIN 40 MG/0.4 ML INJECTION SQ SCH (08:43)
[2018-07-05] MEDS: MEGESTROL 800mg/20ml ORAL LIQUID PO SCH (09:39)
--- NOTE | 2018-07-05 10:54 | Progress Note ---
- Date 07/05/18 Subjective: Up to chair and sleepy. Has not touched breakfast. Nurse made aware and will have someone help him eat. Patient has no complaints. He says he thinks he has been fine. Objective Vital signs: Temperature 97.2 F 07/05/18 08:22 Pulse Rate 66 07/05/18 08:24 Respiratory Rate 16 07/05/18 08:22 Blood Pressure 126/77 07/05/18 08:24 Pulse Oximetry 91 07/05/18 08:22 Cardiac Ectopy: Occasional PVC's Height/Weight/BMI: Height 6 ft Weight 79.9 kg Body Mass Index 25.1 - Constitutional Present: somnolent - Routine HEENT Exam Head: Present: normocephalic, atraumatic Eye: Present: EOMI, PERRL ENT: Present: mucous membranes moist - Routine Respiratory Exam Present: CTA bilaterally - Routine Cardiovascular Exam Present: RRR, S1, S2 - Routine Abdominal Exam Present: soft, normoactive bowel sounds, non distended, non tender - Routine Extremities Exam Present: no edema - Routine Neurological Exam Present: moving all extremities, normal speech Results - Labs CBC & Chem 7: 07/05/18 04:27 07/05/18 04:27 Microbiology Results: Microbiology 06/27/18 02:10 Peripheral/Iv Start Blood Culture - Final No Growth After 5 Days 06/27/18 02:08 Peripheral/Iv Start Blood Culture - Final No Growth After 5 Days 06/27/18 08:12 Urine Legionella Urinary Antigen - Final Assessment and Plan (1) Pneumonia Current visit: Yes Status: Acute (2) Acute respiratory failure with hypoxia Current visit: Yes Status: Acute Assessment and Plan: Assessment: Acute hypoxemic respiratory failure Sepsis from aspiration pneumonia, concern for HCAP Nonsustained PACs, PSVT noted on telemetry. Unconjugated hyperbilirubinemia. Hypokalemia. 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 Blood cultures negative. CXR in 06/30 consistent with repeat aspiration. Cefepime changed to Zosyn. Continue Zosyn and Levaquin for antimicrobial coverage through 07/05. Oxygen azucena 4L. Continue respiratory support, weaning oxygen as able. Continue on puree diet with nectar thickened liquids - concern for aspiration. Ongoing work with speech therapy. Trial of Megace for his appetite. Goals of care have been d/w patient and daughter, and he wants to try to get better. Encourage him to be up in the chair for meals Encourage participation in therapies. Lab reviewed and Na up slightly. He is not drinking enough - 544ml oral intake yesterday. Monitor. Recheck labs in AM to monitor blood counts, electrolytes and renal function. DVT Prophylaxis: SCD's, Lovenox GI Prophylaxis: Protonix Resuscitation Status: Full Code - Physician Narrative Narrative: Date: 07/05/18 Time: 1050 Hospital Course Summary Disclaimer: The visit summary below is not to be considered part of the above Progress Note. Hospital Course: 06/27/2018 Patient status post 1 L IV normal saline bolus provided in the emergency room. Cautious IV fluids normal saline at 50 mL per hour. Awaiting results of blood culture 2, Legionella urinary antigen. Antibiotic coverage with IV cefepime 1 g every 6 hours, IV Levaquin 500 mg daily and IV vancomycin as per pharmacy dosing. DuoNeb 3 mL nebulization treatment every 6 hours scheduled and every 2 hours as needed for wheezing or shortness of breath. Continue home medication aspirin, Aricept, Proscar, Synthroid, Namenda, sertraline, Florinef. Plan tests restart home medication amlodipine 5 mg and lisinopril 10 mg from tomorrow based on patient's blood pressures. Lovenox 40 mg subcutaneous at bedtime. RT consulted. Patient has good oxygen saturations on 2 L by nasal cannula, will decrease to 1 L and plan to discontinue supplemental oxygen later this afternoon as tolerated. CBC with differential, CMP, mag, phosphorus ordered for tomorrow. 06/28/2018 Cautious IV fluids normal saline at 50 mL per hour. Antibiotic coverage with IV cefepime 1 g every 6 hours, IV Levaquin 500 mg daily and IV vancomycin as per pharmacy dosing. Serial EKGs did not demonstrate any acute ST/T changes. Troponin I 3 within normal limits. Patient started on metoprolol tartrate 12.5 mg by mouth twice a day. Continue home medication amlodipine 5 mg and lisinopril 10 mg from tomorrow based on patient's blood pressures. 06/29/18 Remains on cefepime, Levaquin, and vancomycin for pneumonia with healthcare pathogen exposure. Blood cultures negative at 48 hours-discontinue vancomycin. Intermittent low-grade fevers consistent with aspiration; remains on mechanical soft diet with nectar thickened liquids and is to be fully upright for all oral intake per speech therapy recommendations. Repeat chest x-ray in a.m., continues to require supplemental oxygen. Blood pressure higher today-on home regimen. Patient is on Florinef, for orthostatic hypotension documented during hospitalization in August 2017. Will permit supine blood pressures higher than typically accepted due to history of falls with orthostasis. Bilirubin noted to be modestly elevated at 2.1 on 06/28-remainder of liver enzymes normal at that time. Recheck in a.m. with fractionated bili. 06/30/18 Remains on cefepime and Levaquin for antimicrobial coverage; given worsening infiltrate right upper lobe cefepime converted to Zosyn. Leukocytosis continues to improve WbC-11.8 today Chest x-ray revels mild-moderate edema with RLL infiltrate; additional diuresis this a.m. Continue on mechanical soft diet with nectar thickened liquids- concern for aspiration Work on weaning down oxygen as able Potassium replaced orally this morning- will recheck BMP tomorrow Bilirubin continues to be elevated at 2.5, Encourage him to be up in the chair for meals 07/01/18 Intermittent aspiration suspected based on sporadic fever and persistent leukocytosis (WBC 11.6). Blood cultures remain negative x 4 days. CXR in 06/30 consistent with repeat aspiration. Cefepime changed to Zosyn. Continue Zosyn and Levaquin for antimicrobial coverage. Oxygen decreased to 3L following diuresis. Continue respiratory support, weaning oxygen as able. Continue on mechanical soft diet with nectar thickened liquids- concern for aspiration. Ongoing work with speech therapy. Encourage him to be up in the chair for meals Potassium replaced orally. Recheck labs at 1600 today. Encourage participation in therapies. Recheck labs in AM to monitor blood counts, electrolytes and renal function. 07/02 Intermittent aspiration suspected based on sporadic fever and persistent leukocytosis (WBC 11.1). Blood cultures remain negative x 5 days. CXR in 06/30 consistent with repeat aspiration. Cefepime changed to Zosyn. Continue Zosyn and Levaquin for antimicrobial coverage. Oxygen decreased to 3L following diuresis. Continue respiratory support, weaning oxygen as able. Continue on puree diet with nectar thickened liquids- concern for aspiration. Ongoing work with speech therapy. Encourage him to be up in the chair for meals Potassium up to 3.3. Increase to 20 tid and give additional 40 mEq. Recheck in AM. Encourage participation in therapies. Recheck labs in AM to monitor blood counts, electrolytes and renal function. 07/03 Intermittent aspiration suspected based on sporadic fever and persistent leukocytosis (WBC 11.1). Blood cultures negative. CXR in 06/30 consistent with repeat aspiration. Cefepime changed to Zosyn. Continue Zosyn and Levaquin for antimicrobial coverage. Oxygen decreased to 3.5L following diuresis. Continue respiratory support, weaning oxygen as able. Continue on puree diet with nectar thickened liquids - concern for aspiration. Ongoing work with speech therapy. Encourage him to be up in the chair for meals Encourage participation in therapies. Recheck labs in AM to monitor blood counts, electrolytes and renal function. 07/04 Intermittent aspiration suspected based on sporadic fever and persistent leukocytosis (WBC 11.1). Blood cultures negative. CXR in 06/30 consistent with repeat aspiration. Cefepime changed to Zosyn. Continue Zosyn and Levaquin for antimicrobial coverage through 07/05. Oxygen azucena 4L. Continue respiratory support, weaning oxygen as able. Continue on puree diet with nectar thickened liquids - concern for aspiration. Ongoing work with speech therapy. Trial of Megace for his appetite. Goals of care d/w patient and daughter and he wants to try to get better. Encourage him to be up in the chair for meals Encourage participation in therapies. Lab reviewed and Na improved on D5. Will dc fluids. K low again. Will give extra doses of K today and increase his scheduled K. Recheck labs in AM to monitor blood counts, electrolytes and renal function. 07/05 Intermittent aspiration suspected based on sporadic fever and persistent leukocytosis (WBC 11.1). Blood cultures negative. CXR in 06/30 consistent with repeat aspiration. Cefepime changed to Zosyn. Continue Zosyn and Levaquin for antimicrobial coverage through 07/05. Oxygen azucena 4L. Continue respiratory support, weaning oxygen as able. Continue on puree diet with nectar thickened liquids - concern for aspiration. Ongoing work with speech therapy. Trial of Megace for his appetite. Goals of care have been d/w patient and daughter, and he wants to try to get better. Encourage him to be up in the chair for meals Encourage participation in therapies. Lab reviewed and Na up slightly. He is not drinking enough - 544ml oral intake yesterday. Monitor. Recheck labs in AM to monitor blood counts, electrolytes and renal function.
[2018-07-05] MEDS: SALINE FLUSH 10ml SYRINGE IVF PRN (20:07)
[2018-07-05] MEDS: SERTRALINE 50 MG TABLET PO SCH (20:07)
[2018-07-05] MEDS: DONEPEZIL 5 MG TABLET PO SCH (20:07)
[2018-07-06] MEDS: PANTOPRAZOLE 40 MG TABLET PO SCH (06:21)
[2018-07-06] MEDS: LEVOTHYROXINE 112 MCG TABLET PO SCH (06:21)
[2018-07-06] MEDS: ALBUTEROL/IPRATROPIUM 2.5mg-0.5mg/3ml NEB AEROSOL SCH ×4 (07:02→19:40)
[2018-07-06] MEDS: FINASTERIDE 5 MG TABLET PO SCH (09:26)
[2018-07-06] MEDS: AMLODIPINE 5 MG TABLET PO SCH (09:26)
[2018-07-06] MEDS: FLUDROCORTISONE 0.1 MG TABLET PO SCH (09:26)
[2018-07-06] MEDS: LISINOPRIL 10 MG TABLET PO SCH (09:26)
[2018-07-06] MEDS: ASPIRIN *EC* 81 MG TABLET PO SCH (09:26)
[2018-07-06] MEDS: MEMANTINE 10 MG TABLET PO SCH ×2 (09:26→21:27)
[2018-07-06] MEDS: MEGESTROL 800mg/20ml ORAL LIQUID PO SCH (09:27)
[2018-07-06] MEDS: FUROSEMIDE 40 MG/4 ML INJECTION IVP SCH (09:29)
[2018-07-06] MEDS: ENOXAPARIN 40 MG/0.4 ML INJECTION SQ SCH (09:30)
--- NOTE | 2018-07-06 14:14 | Progress Note ---
- Date 07/06/18 Subjective: Parrish is seen today in follow up. She is napping this afternoon during examination. He does arouse and states that he is feeling better. He continues to be on 3 liters of oxygen by n/c. Reports he ate 75% of dinner last night. Vitals stable, Mildly bradycardia. Objective Vital signs: Temperature 97.5 F 07/06/18 08:00 Pulse Rate 57 L 07/06/18 08:00 Respiratory Rate 16 07/06/18 10:41 Blood Pressure 128/75 07/06/18 08:00 Pulse Oximetry 95 07/06/18 10:41 Height/Weight/BMI: Height 1.83 m Weight 79 kg Body Mass Index 25.1 - Constitutional Present: no acute distress, well nourished, well developed - Routine HEENT Exam Eye: Present: EOMI ENT: Present: mucous membranes moist, dentition normal - Routine Respiratory Exam Present: diminished air movement. Absent: wheezes - Routine Cardiovascular Exam Present: RRR, S1, S2. Absent: murmur - Routine Abdominal Exam Present: soft, normoactive bowel sounds, non distended. Absent: tenderness - Routine Skin Exam Present: intact, dry, warm - Routine Neurological Exam Present: alert, oriented X3, CN II-XII intact - Routine Lymphatic Exam Lymphatic: Absent: adenopathy - Routine Psychiatric Exam Present: normal affect, cooperative Results - Labs CBC & Chem 7: 07/06/18 04:13 07/06/18 04:13 Microbiology Results: Microbiology 06/27/18 02:10 Peripheral/Iv Start Blood Culture - Final No Growth After 5 Days 06/27/18 02:08 Peripheral/Iv Start Blood Culture - Final No Growth After 5 Days 06/27/18 08:12 Urine Legionella Urinary Antigen - Final Assessment and Plan (1) Pneumonia Current visit: Yes Status: Acute (2) Acute respiratory failure with hypoxia Current visit: Yes Status: Acute Assessment and Plan: Assessment Acute hypoxemic respiratory failure Pneumonia Sepsis from aspiration pneumonia, concern for HCAP Dysphagia Nonsustained PACs, PSVT noted on telemetry Unconjugated hyperbilirubinemia Hypernatremia (Not POA) Hypokalemia (Not POA) 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 Needs to increase PO water intake. Suspect he is aspirator. Continue to work on PO intake. Megace to help stimulate appetite Wean oxygen as able. Down to 3 liters. Encourage activity Hopeful to discharge to [facility] in the next 1-2 days Vicki BP low this afternoon - will hold Norvasc. Antibiotic course completed yesterday -monitor off; not seeing temp elevations currently. DVT Prophylaxis: SCD's, Lovenox GI Prophylaxis: Protonix Resuscitation Status: Full Code - Time spent with patient Time with patient PN: 25 minutes - Physician Narrative Physician: Walter Cohen MD Narrative: Date: 07/06/18 Time: 1605 Have independently interviewed/examined pt. Chart reviewed. Case discussed with CM & my [employer]. Care plan developed with my supervision; agree with above. Resting in bed, but easily awakened. Feels about the same. Breathing fair-notes cough intermittently, but not feeling chest congestion or pain. Appetite fair- reports able to eat slightly more. No ab pain or nausea. Lungs: decreased bilaterally CV: regular AB: soft nt/nd MSE: awake alert Plan: Will give 1L D5W with potassium. Stop Lasix. BP low this afternoon-will hold Norvasc. Wean O2 as able. Antibiotics stopped yesterday - will monitor patient off theses. Recheck CXR in am and repeat CBC. Hospital Course Summary Disclaimer: The visit summary below is not to be considered part of the above Progress Note. Hospital Course: 06/27/2018 - Admission Patient status post 1 L IV normal saline bolus provided in the emergency room. Cautious IV fluids normal saline at 50 mL per hour. Awaiting results of blood culture 2, Legionella urinary antigen. Antibiotic coverage with IV cefepime 1 g every 6 hours, IV Levaquin 500 mg daily and IV vancomycin as per pharmacy dosing. DuoNeb 3 mL nebulization treatment every 6 hours scheduled and every 2 hours as needed for wheezing or shortness of breath. Continue home medication aspirin, Aricept, Proscar, Synthroid, Namenda, sertraline, Florinef. Plan tests restart home medication amlodipine 5 mg and lisinopril 10 mg from tomorrow based on patient's blood pressures. Lovenox 40 mg subcutaneous at bedtime. RT consulted. Patient has good oxygen saturations on 2 L by nasal cannula, will decrease to 1 L and plan to discontinue supplemental oxygen later this afternoon as tolerated. CBC with differential, CMP, mag, phosphorus ordered for tomorrow. 06/28/18 Cautious IV fluids normal saline at 50 mL per hour. Antibiotic coverage with IV cefepime 1 g every 6 hours, IV Levaquin 500 mg daily and IV vancomycin as per pharmacy dosing. Serial EKGs did not demonstrate any acute ST/T changes. Troponin I 3 within normal limits. Patient started on metoprolol tartrate 12.5 mg by mouth twice a day. Continue home medication amlodipine 5 mg and lisinopril 10 mg from tomorrow based on patient's blood pressures. 06/29/18 Remains on cefepime, Levaquin, and vancomycin for pneumonia with healthcare pathogen exposure. Blood cultures negative at 48 hours - discontinue vancomycin. Intermittent low-grade fevers consistent with aspiration; remains on mechanical soft diet with nectar thickened liquids and is to be fully upright for all oral intake per speech therapy recommendations. Repeat chest x-ray in a.m., continues to require supplemental oxygen. Blood pressure higher today-on home regimen. Patient is on Florinef, for orthostatic hypotension documented during hospitalization in August 2017. Will permit supine blood pressures higher than typically accepted due to history of falls with orthostasis. Bilirubin noted to be modestly elevated at 2.1 on 06/28-remainder of liver enzymes normal at that time. Recheck in a.m. with fractionated bili. 06/30/19 Remains on cefepime and Levaquin for antimicrobial coverage; given worsening infiltrate right upper lobe cefepime converted to Zosyn. Leukocytosis continues to improve WBC-11.8 today Chest x-ray revels mild-moderate edema with RLL infiltrate; additional diuresis this a.m. Continue on mechanical soft diet with nectar thickened liquids- concern for aspiration Work on weaning down oxygen as able Potassium replaced orally this morning- will recheck BMP tomorrow Bilirubin continues to be elevated at 2.5, Encourage him to be up in the chair for meals 07/01/18 Intermittent aspiration suspected based on sporadic fever and persistent leukocytosis (WBC 11.6). Blood cultures remain negative x 4 days. CXR in 06/30 consistent with repeat aspiration. Cefepime changed to Zosyn. Continue Zosyn and Levaquin for antimicrobial coverage. Oxygen decreased to 3L following diuresis. Continue respiratory support, weaning oxygen as able. Continue on mechanical soft diet with nectar thickened liquids- concern for aspiration. Ongoing work with speech therapy. Encourage him to be up in the chair for meals Potassium replaced orally. Recheck labs at 1600 today. Encourage participation in therapies. Recheck labs in AM to monitor blood counts, electrolytes and renal function. 07/02/18 Intermittent aspiration suspected based on sporadic fever and persistent leukocytosis (WBC 11.1). Blood cultures remain negative x 5 days. Continue Zosyn and Levaquin for antimicrobial coverage. Oxygen decreased to 3L following diuresis. Continue respiratory support, weaning oxygen as able. Continue on puree diet with nectar thickened liquids- concern for aspiration. Ongoing work with speech therapy. Encourage him to be up in the chair for meals Potassium up to 3.3. Increase to 20 tid and give additional 40 mEq. Recheck in AM. 07/03/18 Continue Zosyn and Levaquin for antimicrobial coverage. Oxygen decreased to 3.5L following diuresis. Continue respiratory support, weaning oxygen as able. Continue on puree diet with nectar thickened liquids - concern for aspiration. Ongoing work with speech therapy. Encourage him to be up in the chair for meals. Encourage participation in therapies. 07/04/18 Continue Zosyn and Levaquin for antimicrobial coverage through 07/05. Oxygen azucena 4L. Continue respiratory support, weaning oxygen as able. Continue on puree diet with nectar thickened liquids - concern for aspiration. Ongoing work with speech therapy. Trial of Megace for his appetite. Goals of care d/w patient and daughter and he wants to try to get better. Lab reviewed and Na improved on D5. Will dc fluids. K low again. Will give extra doses of K today and increase his scheduled K. 07/05/18 Continue Zosyn and Levaquin for antimicrobial coverage through 07/05. Oxygen at 4L. Continue respiratory support, weaning oxygen as able. Continue on puree diet with nectar thickened liquids - concern for aspiration. Ongoing work with speech therapy. Lab reviewed and Na up slightly. He is not drinking enough - 544ml oral intake yesterday. Monitor. 07/06/18 Antibiotic course completed yesterday-monitor off; not seeing temp elevations currently. Given persistent Hypernatremia will given 1 liter of D5w with 20 KCL at 125ml/hr Lasix stopped. Needs to increase PO water intake. Suspect he is aspirator. Continue to work on PO intake. Megace to help stimulate appetite. BP low this afternoon - will hold Norvasc. Wean oxygen as able. Down to 3 liters. Hopeful to discharge to [facility] in the next 1-2 days.
[2018-07-06] MEDS ORDERED: KCL IV SCH (14:15)
[2018-07-06] MEDS ORDERED: D5W IV SCH (14:15)
[2018-07-06] MEDS: SERTRALINE 50 MG TABLET PO SCH (21:27)
[2018-07-06] MEDS: DONEPEZIL 5 MG TABLET PO SCH (21:27)
[2018-07-07] MEDS: LEVOTHYROXINE 112 MCG TABLET PO SCH ×2 (05:18→05:40)
[2018-07-07] MEDS: PANTOPRAZOLE 40 MG TABLET PO SCH ×2 (05:19→05:40)
[2018-07-07] MEDS: ALBUTEROL/IPRATROPIUM 2.5mg-0.5mg/3ml NEB AEROSOL SCH ×2 (07:51→11:39)
[2018-07-07 08:27] VITALS: BP 125/69; PULSE 89; TEMP 97.8; O2SAT 91
[2018-07-07] MEDS: FINASTERIDE 5 MG TABLET PO SCH (09:20)
[2018-07-07] MEDS: MEGESTROL 800mg/20ml ORAL LIQUID PO SCH (09:21)
[2018-07-07] MEDS: LISINOPRIL 10 MG TABLET PO SCH (09:22)
[2018-07-07] MEDS: ASPIRIN *EC* 81 MG TABLET PO SCH (09:22)
[2018-07-07] MEDS: FLUDROCORTISONE 0.1 MG TABLET PO SCH (09:23)
[2018-07-07] MEDS: MEMANTINE 10 MG TABLET PO SCH (09:23)
[2018-07-07] MEDS: ENOXAPARIN 40 MG/0.4 ML INJECTION SQ SCH (09:25)
--- NOTE | 2018-07-07 10:07 | XRay Report ---
Indication: F/U infiltrate PROCEDURE: XR chest 1V: Encounter: Initial Comparison: July 02, 2018 Findings: Mild interstitial prominence has slightly improved. No new or worsening airspace consolidation. No pneumothorax or pleural effusion Heart size and mediastinal contours are stable. Tortuous ectatic thoracic aorta. Pulmonary vascularity remains prominent. Impression: Slowly improving aeration of the lungs. .
[2018-07-07 11:46] VITALS: RESP 20
--- NOTE | 2018-07-07 13:37 | Progress Note ---
- Date 07/07/18 Subjective: F/U: Acute hypoxemic respiratory failure, Pneumonia, Sepsis from aspiration pneumonia, concern for HCAP Resting in bed, easily awaken. Feels fair overall. Breathing with slight improvement-some cough/congestion. No pain with breathing. Not feeling like he is struggling to breath. Appetite with mild increase-reports feeling a little more hungry. Not reporting nausea or ab pain. Strength decreased-tires with activities. Nursing reports was up in chair this morning. Objective Vital signs: Temperature 97.8 F 07/07/18 08:00 Pulse Rate 89 07/07/18 08:00 Respiratory Rate 20 07/07/18 11:40 Blood Pressure 125/69 07/07/18 08:00 Pulse Oximetry 91 07/07/18 11:40 Cardiac Ectopy: Occasional PVC's Height/Weight/BMI: Height 1.83 m Weight 80.4 kg Body Mass Index 25.1 - Constitutional Present: well nourished, well developed, average body habitus, cooperative - Routine HEENT Exam Head: Present: normocephalic, atraumatic Eye: Present: EOMI, PERRL ENT: Present: mucous membranes moist - Routine Respiratory Exam Present: decreased breath sounds, crackles (faint). Absent: respiratory distress - Routine Cardiovascular Exam Present: RRR, no murmur - Routine Abdominal Exam Present: soft, non distended, non tender. Absent: normoactive bowel sounds ( Decreased) - Routine Extremities Exam Present: pulses intact. Absent: cyanosis, clubbing - Routine Musculoskeletal Exam Musculoskeletal: Present: no clubbing or cyanosis - Routine Skin Exam Present: dry, warm - Routine Neurological Exam Present: alert, CN II-XII intact, moving all extremities, vision grossly intact , hearing grossly intact, normal speech - Routine Psychiatric Exam Present: normal affect, cooperative Results - Labs CBC & Chem 7: 07/07/18 04:09 07/07/18 04:09 Microbiology Results: Microbiology 06/27/18 02:10 Peripheral/Iv Start Blood Culture - Final No Growth After 5 Days 06/27/18 02:08 Peripheral/Iv Start Blood Culture - Final No Growth After 5 Days 06/27/18 08:12 Urine Legionella Urinary Antigen - Final Assessment and Plan (1) Pneumonia Current visit: Yes Status: Acute (2) Acute respiratory failure with hypoxia Current visit: Yes Status: Acute Assessment and Plan: Assessment Acute hypoxemic respiratory failure Pneumonia - likely aspiration Sepsis from aspiration pneumonia, concern for HCAP Dysphagia Nonsustained PACs, PSVT noted on telemetry Unconjugated hyperbilirubinemia Hypernatremia (Not POA) Hypokalemia (Not POA) 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 WBC remaining normal without antibiotics. No temp elevations. HR and BP stable. Oral drive with gradual improvement. O2 needs improving. Nursing charting need for 3L, but was on RA at my visits with sats in the low 90s. Will discharge to skilled care at [facility]. Will need continued PT/OT for strengthening and Speech to help with swallow function. [facility] needed to continue to monitor and treat his respiratory status. Diet: Pureed diet with syrup thick liquids. NO straws. Continue with Megace for appetite stimulation. Continue DuoNeb for pulmonary support. Stop Norvasc - will need blood pressure to be monitored. F/U with Dr Jennings in 1 week. See orders for details. Case discussed with CM. Time spent with patient care and discharge greater than 30 minutes. DVT Prophylaxis: SCD's, Lovenox GI Prophylaxis: Protonix Resuscitation Status: Full Code - Physician Narrative Physician: Walter Cohen MD Narrative: Date: 07/07/18 Time: 1328 Hospital Course Summary Disclaimer: The visit summary below is not to be considered part of the above Progress Note. Hospital Course: 06/27/2018 - Admission Patient status post 1 L IV normal saline bolus provided in the emergency room. Cautious IV fluids normal saline at 50 mL per hour. Awaiting results of blood culture 2, Legionella urinary antigen. Antibiotic coverage with IV cefepime 1 g every 6 hours, IV Levaquin 500 mg daily and IV vancomycin as per pharmacy dosing. DuoNeb 3 mL nebulization treatment every 6 hours scheduled and every 2 hours as needed for wheezing or shortness of breath. Continue home medication aspirin, Aricept, Proscar, Synthroid, Namenda, sertraline, Florinef. Plan tests restart home medication amlodipine 5 mg and lisinopril 10 mg from tomorrow based on patient's blood pressures. Lovenox 40 mg subcutaneous at bedtime. RT consulted. Patient has good oxygen saturations on 2 L by nasal cannula, will decrease to 1 L and plan to discontinue supplemental oxygen later this afternoon as tolerated. CBC with differential, CMP, mag, phosphorus ordered for tomorrow. 06/28/18 Cautious IV fluids normal saline at 50 mL per hour. Antibiotic coverage with IV cefepime 1 g every 6 hours, IV Levaquin 500 mg daily and IV vancomycin as per pharmacy dosing. Serial EKGs did not demonstrate any acute ST/T changes. Troponin I 3 within normal limits. Patient started on metoprolol tartrate 12.5 mg by mouth twice a day. Continue home medication amlodipine 5 mg and lisinopril 10 mg from tomorrow based on patient's blood pressures. 06/29/18 Remains on cefepime, Levaquin, and vancomycin for pneumonia with healthcare pathogen exposure. Blood cultures negative at 48 hours - discontinue vancomycin. Intermittent low-grade fevers consistent with aspiration; remains on mechanical soft diet with nectar thickened liquids and is to be fully upright for all oral intake per speech therapy recommendations. Repeat chest x-ray in a.m., continues to require supplemental oxygen. Blood pressure higher today-on home regimen. Patient is on Florinef, for orthostatic hypotension documented during hospitalization in August 2017. Will permit supine blood pressures higher than typically accepted due to history of falls with orthostasis. Bilirubin noted to be modestly elevated at 2.1 on 06/28-remainder of liver enzymes normal at that time. Recheck in a.m. with fractionated bili. 06/30/19 Remains on cefepime and Levaquin for antimicrobial coverage; given worsening infiltrate right upper lobe cefepime converted to Zosyn. Leukocytosis continues to improve WBC-11.8 today Chest x-ray revels mild-moderate edema with RLL infiltrate; additional diuresis this a.m. Continue on mechanical soft diet with nectar thickened liquids- concern for aspiration Work on weaning down oxygen as able Potassium replaced orally this morning- will recheck BMP tomorrow Bilirubin continues to be elevated at 2.5, Encourage him to be up in the chair for meals 07/01/18 Intermittent aspiration suspected based on sporadic fever and persistent leukocytosis (WBC 11.6). Blood cultures remain negative x 4 days. CXR in 06/30 consistent with repeat aspiration. Cefepime changed to Zosyn. Continue Zosyn and Levaquin for antimicrobial coverage. Oxygen decreased to 3L following diuresis. Continue respiratory support, weaning oxygen as able. Continue on mechanical soft diet with nectar thickened liquids- concern for aspiration. Ongoing work with speech therapy. Encourage him to be up in the chair for meals Potassium replaced orally. Recheck labs at 1600 today. Encourage participation in therapies. Recheck labs in AM to monitor blood counts, electrolytes and renal function. 07/02/18 Intermittent aspiration suspected based on sporadic fever and persistent leukocytosis (WBC 11.1). Blood cultures remain negative x 5 days. Continue Zosyn and Levaquin for antimicrobial coverage. Oxygen decreased to 3L following diuresis. Continue respiratory support, weaning oxygen as able. Continue on puree diet with nectar thickened liquids- concern for aspiration. Ongoing work with speech therapy. Encourage him to be up in the chair for meals Potassium up to 3.3. Increase to 20 tid and give additional 40 mEq. Recheck in AM. 07/03/18 Continue Zosyn and Levaquin for antimicrobial coverage. Oxygen decreased to 3.5L following diuresis. Continue respiratory support, weaning oxygen as able. Continue on puree diet with nectar thickened liquids - concern for aspiration. Ongoing work with speech therapy. Encourage him to be up in the chair for meals. Encourage participation in therapies. 07/04/18 Continue Zosyn and Levaquin for antimicrobial coverage through 07/05. Oxygen azucena 4L. Continue respiratory support, weaning oxygen as able. Continue on puree diet with nectar thickened liquids - concern for aspiration. Ongoing work with speech therapy. Trial of Megace for his appetite. Goals of care d/w patient and daughter and he wants to try to get better. Lab reviewed and Na improved on D5. Will dc fluids. K low again. Will give extra doses of K today and increase his scheduled K. 07/05/18 Continue Zosyn and Levaquin for antimicrobial coverage through 07/05. Oxygen at 4L. Continue respiratory support, weaning oxygen as able. Continue on puree diet with nectar thickened liquids - concern for aspiration. Ongoing work with speech therapy. Lab reviewed and Na up slightly. He is not drinking enough - 544ml oral intake yesterday. Monitor. 07/06/18 Antibiotic course completed yesterday-monitor off; not seeing temp elevations currently. Given persistent Hypernatremia will given 1 liter of D5w with 20 KCL at 125ml/hr Lasix stopped. Needs to increase PO water intake. Suspect he is aspirator. Continue to work on PO intake. Megace to help stimulate appetite. BP low this afternoon - will hold Norvasc. Wean oxygen as able. Down to 3 liters. Hopeful to discharge to [facility] in the next 1-2 days. 07/07/18 Clinically improving. WBC remaining normal without antibiotics. No temp elevations. HR and BP stable. Oral drive with gradual improvement. O2 needs improving. Nursing charting need for 3L, but was on RA at my visits with sats in the low 90s. Will discharge to skilled care at [facility]. Will need continued PT/OT for strengthening and Speech to help with swallow function. [facility] needed to continue to monitor and treat his respiratory status. Diet: Pureed diet with syrup thick liquids. NO straws. Continue with Megace for appetite stimulation. Continue DuoNeb for pulmonary support. Stop Norvasc - will need blood pressure to be monitored. F/U with Dr Jennings in 1 week. See orders for details.
--- NOTE | 2018-07-07 14:23 | Extended Care Facility Orders ---
Admission Orders Admit to:: [facility] Allergies/Adverse Reactions: Allergies No Known Allergies Allergy (Verified 06/27/18 01:53) Admitting Diagnosis: PNA, Hypoxia Admitting Physician: Walter Cohen MD Attending Physician: Dr Jennings Code Status: Full Code Anticiapted Length of Stay: 30 days or less Rehab Potential: fair Rehab Prognosis: fair Diet: Pureed diet with syrup thick liquids. NO STRAWS. May use Facility Protocol or Standing Orders: Yes May have flu vaccine: Yes Evaluations/Treatment: Speech (Dysphagia), PT (Gen debility, gait instability), OT (Gen debility, gait instability) [facility] Certification: I certify that SNF services are required to be given on an inpatient basis because of the patient's need for detention care on a continuing basis for the condition(s) for which he/she received inpatient hospital services prior to his/her transfer to the SNF. SNF inpatient care is necessary for the following reasons: Indication for [facility]: Med Admininistration, Other (senior care to treat resolving pneumonia/respiratory failure. Skilled PT/OT/Speech to maximize functional status. ) - Additional Information In Event of Arrest: Start CPR,call 911,send patient to the ER Resident is Aware of Diagnosis: Yes Referrals: Arlen Jennings MD [Primary Care Provider] - 1 Week (Hospital follow up for sepsis/ aspiration pneumonia/respiratory failure.) Additional Orders: Lab: BMP in 1 week. Dx: HTN, Medication use. Result to Dr Jennings. O2 to keep sats >90%, weaning as able. Acapella QID for 1 week to help decrease secreationg, then as needed for cough/congestion. Can use routine DuoNeb for 1 week - then reassess respiratory status to determine if need for DuoNeb continues. Norvasc placed on hold during hospiatlizaton and stopped at discharge as BP ran low. Monitor blood pressure. May need to restart at Dr Jennings' s discreation.
--- NOTE | 2018-07-07 15:15 | Discharge Summary ---
Discharge Information Date of admission: 06/27/18 04:48 Anticipated date of discharge: 07/07/18 Attending Physician: Walter Cohen MD Primary care physician: Arlen Jennings MD Consults: PT/OT/Speech - Discharge Diagnosis (1) Pneumonia Status: Acute (2) Acute respiratory failure with hypoxia Status: Acute Discharge diagnosis Acute hypoxemic respiratory failure Associated conditions and complications Pneumonia - likely aspiration Sepsis from aspiration pneumonia, concern for HCAP Dysphagia Nonsustained PACs, PSVT noted on telemetry Unconjugated hyperbilirubinemia Hypernatremia (Not POA) Hypokalemia (Not POA) 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, status post excision BPH Dementia History of TIAs History of benign colonic polyps Diverticulosis - Laboratory Labs: Admit Lab 06/27/18 01:50 WBC 11.3 H Hgb 14.5 Hct 42.9 MCV 97.3 Plt Count 216 Neut % (Auto) 85.2 H Lymph % (Auto) 8.1 L [place] % (Auto) 5.1 Eos % (Auto) 1.2 Baso % (Auto) 0.2 Admit Lab 06/27/18 01:50 Sodium 143 Potassium 4.1 Chloride 107 Carbon Dioxide 24 Anion Gap 12 BUN 18.0 Creatinine 0.6 L Estimated Creat Clear 60 GFR Calculation 128 BUN/Creatinine Ratio 30 H Glucose 141 H Calculated Osmolality 279 Calcium 8.8 Total Bilirubin 0.90 AST 23 ALT 16 Alkaline Phosphatase 65 Troponin I < 0.012 NT-Pro-B Natriuret Pep 417 H Total Protein 6.8 Albumin 4.0 Globulin 2.8 Albumin/Globulin Ratio 1.4 Plasma Lactate 1.9 07/07/18 04:09 07/07/18 04:09 - Microbiology Microbiology 06/27/18 02:10 Peripheral/Iv Start Blood Culture - Final No Growth After 5 Days 06/27/18 02:08 Peripheral/Iv Start Blood Culture - Final No Growth After 5 Days 06/27/18 08:12 Urine Legionella Urinary Antigen - Final - Radiology Radiology: Date of Exam: 06/27/18 Type of Exam: CT abdomen pelvis w con Findings: Left lower lobe airspace consolidation with patchy right lower lobe infiltrate. The liver is unremarkable. Gallbladder is distended. The spleen, pancreas and adrenal glands are within normal limits. Bilateral renal cysts. No abdominal or pelvic adenopathy. Atherosclerotic plaque in the abdominal aorta and its major branches. Bladder is normal. No free fluid or free air is. Moderate stool in the colon. Chronic appearing L2 compression fracture. Orthopedic hardware in the right femur. Impression: No acute disease process seen. Date of Exam: 06/27/18 Type of Exam: CT angio pulm emboli Findings: Pulmonary arteries: Exam is diagnostic to the segmental pulmonary arterial level. No filling defects identified to suggest a pulmonary embolus. Other findings: Multifocal airspace consolidation worse in the left lower lobe. No pneumothorax or pleural effusion. The central airways are patent. Subpleural fibrotic changes. Mucus or debris in the trachea. No axillary or mediastinal lymphadenopathy by CT size criteria. Heart is moderately enlarged. No pericardial effusion. The upper abdomen shows no acute findings. Impression: No pulmonary embolus. Pneumonia. Date of Exam: 06/27/18 Type of Exam: XR chest 1V Findings: Airspace consolidation in both lower lobes, greater on the left. Chronic interstitial prominence and mild emphysema. No pneumothorax. Heart size is mildly enlarged. Mediastinal contours are normal. Pulmonary vascularity is slightly prominent. Impression: Lower lobe pneumonia or aspiration, greater on the left. Date of Exam: 06/30/18 Type of Exam: XR chest 1V Findings: Worsening airspace consolidation in the right upper lobe. Probable small left effusion. Aeration of the left lower lobe has improved. No pneumothorax. Heart size and mediastinal contours are stable. Pulmonary vascularity is indistinct. Impression: Worsening right upper lobe infiltrate with mild to moderate edema. Date of Exam: 07/02/18 Type of Exam: XR chest 2V FINDINGS: Aeration of the right upper lobe has improved. Interstitial prominence remains. Small effusions. No pneumothorax. Heart size and mediastinal contours are stable. Pulmonary vascular markings remain increased. Impression: Improving right upper lobe airspace disease with persistent mild congestive failure. Date of Exam: 07/07/18 Type of Exam: XR chest 1V Findings: Mild interstitial prominence has slightly improved. No new or worsening airspace consolidation. No pneumothorax or pleural effusion Heart size and mediastinal contours are stable. Tortuous ectatic thoracic aorta. Pulmonary vascularity remains prominent. Impression: Slowly improving aeration of the lungs. History of Present Illness HPI: This is a 88 y/o male who is a resident at a local nursing care facility. The patient was noted to have 2 episodes of emesis tonight with increased dyspnea thereafter. EMS activated and found to be mildly hypoxic. The patient is transported to the ED where a cxr and subsequent ct angio of the chest demonstrated a possible bilateral lower lobe infiltrate (note that the actual read was vague and non specific). The patient did demonstrate a significant fever @ the NH. The patient has advanced dementia and is unable to provide a meaningful history. The patient will be admitted with presumed either aspiration pneumonia or hcap. For complete details of the H&P refer to that document. Objective Vital signs: Temperature 97.8 F 07/07/18 08:00 Pulse Rate 89 07/07/18 08:00 Respiratory Rate 20 07/07/18 11:40 Blood Pressure 125/69 07/07/18 08:00 Pulse Oximetry 91 07/07/18 11:40 Cardiac Ectopy: Occasional PVC's Height/Weight/BMI: Height 1.83 m Weight 80.4 kg Body Mass Index 25.1 Hospital Course This is a general summary of the patient's hospital course. For more details refer to the complete medical record. Hospital course: 06/27/2018 - Admission Patient status post 1 L IV normal saline bolus provided in the emergency room. Cautious IV fluids normal saline at 50 mL per hour. Awaiting results of blood culture 2, Legionella urinary antigen. Antibiotic coverage with IV cefepime 1 g every 6 hours, IV Levaquin 500 mg daily and IV vancomycin as per pharmacy dosing. DuoNeb 3 mL nebulization treatment every 6 hours scheduled and every 2 hours as needed for wheezing or shortness of breath. Continue home medication aspirin, Aricept, Proscar, Synthroid, Namenda, sertraline, Florinef. Plan tests restart home medication amlodipine 5 mg and lisinopril 10 mg from tomorrow based on patient's blood pressures. Lovenox 40 mg subcutaneous at bedtime. RT consulted. Patient has good oxygen saturations on 2 L by nasal cannula, will decrease to 1 L and plan to discontinue supplemental oxygen later this afternoon as tolerated. CBC with differential, CMP, mag, phosphorus ordered for tomorrow. 06/28/18 Cautious IV fluids normal saline at 50 mL per hour. Antibiotic coverage with IV cefepime 1 g every 6 hours, IV Levaquin 500 mg daily and IV vancomycin as per pharmacy dosing. Serial EKGs did not demonstrate any acute ST/T changes. Troponin I 3 within normal limits. Patient started on metoprolol tartrate 12.5 mg by mouth twice a day. Continue home medication amlodipine 5 mg and lisinopril 10 mg from tomorrow based on patient's blood pressures. 06/29/18 Remains on cefepime, Levaquin, and vancomycin for pneumonia with healthcare pathogen exposure. Blood cultures negative at 48 hours - discontinue vancomycin. Intermittent low-grade fevers consistent with aspiration; remains on mechanical soft diet with nectar thickened liquids and is to be fully upright for all oral intake per speech therapy recommendations. Repeat chest x-ray in a.m., continues to require supplemental oxygen. Blood pressure higher today-on home regimen. Patient is on Florinef, for orthostatic hypotension documented during hospitalization in August 2017. Will permit supine blood pressures higher than typically accepted due to history of falls with orthostasis. Bilirubin noted to be modestly elevated at 2.1 on 06/28-remainder of liver enzymes normal at that time. Recheck in a.m. with fractionated bili. 06/30/19 Remains on cefepime and Levaquin for antimicrobial coverage; given worsening infiltrate right upper lobe cefepime converted to Zosyn. Leukocytosis continues to improve WBC-11.8 today Chest x-ray revels mild-moderate edema with RLL infiltrate; additional diuresis this a.m. Continue on mechanical soft diet with nectar thickened liquids- concern for aspiration Work on weaning down oxygen as able Potassium replaced orally this morning- will recheck BMP tomorrow Bilirubin continues to be elevated at 2.5, Encourage him to be up in the chair for meals 07/01/18 Intermittent aspiration suspected based on sporadic fever and persistent leukocytosis (WBC 11.6). Blood cultures remain negative x 4 days. CXR in 06/30 consistent with repeat aspiration. Cefepime changed to Zosyn. Continue Zosyn and Levaquin for antimicrobial coverage. Oxygen decreased to 3L following diuresis. Continue respiratory support, weaning oxygen as able. Continue on mechanical soft diet with nectar thickened liquids- concern for aspiration. Ongoing work with speech therapy. Encourage him to be up in the chair for meals Potassium replaced orally. Recheck labs at 1600 today. Encourage participation in therapies. Recheck labs in AM to monitor blood counts, electrolytes and renal function. 07/02/18 Intermittent aspiration suspected based on sporadic fever and persistent leukocytosis (WBC 11.1). Blood cultures remain negative x 5 days. Continue Zosyn and Levaquin for antimicrobial coverage. Oxygen decreased to 3L following diuresis. Continue respiratory support, weaning oxygen as able. Continue on puree diet with nectar thickened liquids- concern for aspiration. Ongoing work with speech therapy. Encourage him to be up in the chair for meals Potassium up to 3.3. Increase to 20 tid and give additional 40 mEq. Recheck in AM. 07/03/18 Continue Zosyn and Levaquin for antimicrobial coverage. Oxygen decreased to 3.5L following diuresis. Continue respiratory support, weaning oxygen as able. Continue on puree diet with nectar thickened liquids - concern for aspiration. Ongoing work with speech therapy. Encourage him to be up in the chair for meals. Encourage participation in therapies. 07/04/18 Continue Zosyn and Levaquin for antimicrobial coverage through 07/05. Oxygen at 4L. Continue respiratory support, weaning oxygen as able. Continue on puree diet with nectar thickened liquids - concern for aspiration. Ongoing work with speech therapy. Trial of Megace for his appetite. Goals of care d/w patient and daughter and he wants to try to get better. Lab reviewed and Na improved on D5. Will dc fluids. K low again. Will give extra doses of K today and increase his scheduled K. 07/05/18 Continue Zosyn and Levaquin for antimicrobial coverage through 07/05. Oxygen at 4L. Continue respiratory support, weaning oxygen as able. Continue on puree diet with nectar thickened liquids - concern for aspiration. Ongoing work with speech therapy. Lab reviewed and Na up slightly. He is not drinking enough - 544ml oral intake yesterday. Monitor. 07/06/18 Antibiotic course completed yesterday-monitor off; not seeing temp elevations currently. Given persistent Hypernatremia will given 1 liter of D5w with 20 KCL at 125ml/hr Lasix stopped. Needs to increase PO water intake. Suspect he is aspirator. Continue to work on PO intake. Megace to help stimulate appetite. BP low this afternoon - will hold Norvasc. Wean oxygen as able. Down to 3 liters. Hopeful to discharge to [facility] in the next 1-2 days. 07/07/18 Discharge Clinically improving. WBC remaining normal without antibiotics. No temp elevations. HR and BP stable. Oral drive with gradual improvement. O2 needs improving. Nursing charting need for 3L, but was on RA at my visits with sats in the low 90s. Will discharge to skilled care at [facility]. Will need continued PT/OT for strengthening and Speech to help with swallow function. half-way needed to continue to monitor and treat his respiratory status. Diet: Pureed diet with syrup thick liquids. NO straws. Medication changes: Continue with Megace for appetite stimulation. Continue DuoNeb for pulmonary support. Stop Norvasc - will need blood pressure to be monitored. F/U with Dr Jennings in 1 week. See orders for details. Time spent with patient: discharge greater than 30 minutes External Problems Reviewed(CCD)?: No Resuscitation Status: Full Code Discharge Plan - Discharge Disposition Discharge Date: 07/07/18 Disposition: 03 To SNU Not TNC (SNF) *Condition: Stable Reason For Visit (Visit label in EMR): PNA, Hypoxia - Discharge Medications *Discharge Medications: New Albuterol/Ipratropium [Duoneb] 3 ml AEROSOL RTQID each Megestrol Oral Liq [Megace] 400 mg PO DAILY #300 ml Continue Finasteride 5 mg PO DAILY #0 Cyanocobalamin (B-12) [Vit. B-12] 1,000 mcg IM 1 MONTH Senna + Docusate [Senna Plus Tablet] 2 tab PO BID tab Hydrocodone/APAP 5/325 [[place] 5/325] 1 tab PO Q6H PRN #20 tab PRN Reason: hip pain Donepezil HCl [Aricept] 5 mg PO HS #0 tab Acetaminophen [Tylenol] 650 mg PO QID tab oxybutynin chloride 5 mg tablet 5 mg PO DAILY tab lutein 6 mg capsule 6 mg PO DAILY cap aspirin 81 mg tablet,delayed release 81 mg PO DAILY polyethylene glycol 3350 17 gram oral powder packet 17 g PO DAILY PRN PRN Reason: Constipation Klor-Con M20 (potassium chloride ER) 20 mEq tablet,(part/cryst) 20 meq PO DAILY 31 Days Zoloft (sertraline) 25 mg tablet 50 mg PO HS tab Vitamin D3 (cholecalciferol) 1,000 unit capsule 1,000 unit PO DAILY cap levothyroxine 112 mcg tablet 112 mcg PO DAILY 31 Days #31 tab Namenda (memantine) 10 mg tablet 10 mg PO BID #60 tab lisinopril 10 mg tablet 10 mg PO DAILY tab fludrocortisone 0.1 mg tablet 0.1 mg PO DAILY #30 tab Discontinued Norvasc (amlodipine) 5 mg tablet 5 mg PO DAILY tab - Discharge Packet/Instructions *Diet: Pureed diet with Syrup thick liquids. NO Straws. *Activity: Increase as tolerated *Pain Management/Treatment: Continue prior home pain medications. *Wound Care: n/a *Expected Signs/Symptoms: Improvement of breathing. Improvement of functional status. *Notify Physician if: Temp > 100.4. Increasing cough/congestion or pain with breathing. Any worrisome symptom. *During Business Hours Contact: Nursing staff at [facility] *After Business Hours Contact: Nusing staff at [facility] *Pending Lab/Results: No Pending Lab - Referrals/Follow Up *Referrals/Follow Up: Arlen Jennings MD [Primary Care Provider] - 1 Week (Hospital follow up for sepsis/ aspiration pneumonia/respiratory failure.) - Patient Handouts Patient Handouts: Hypoxia (GEN), Pneumonia (GEN) - Dismissal Complete Discharge Instructions are:: Complete Physician Narrative - Narrative Physician: Walter Cohen MD Attestation Narrative: Date: 07/07/18 Time: 1511 I have independently interviewed and examined patient prior to discharge. See my progress note for details. Medically stable for discharge to skilled care.
== END 2018-07-07 16:25 | DRG 871 ==
LOC: EDHOLD 01:37 → ED 01:37 → SUATTDRO 04:48 → OBSVTOIN 04:48 → EDHOLD 05:20 → MED 05:24
PROVIDERS: ADMIT Emergency Medicine; ATTEND Hospitalist